=== PATIENT | male | born 1940 | race Caucasian/White ===

== ENCOUNTER 2016-08-04 14:07 | Observation (INO) ==
--- NOTE | 2016-08-04 14:13 | Emergency Department Note ---
Disposition Clinical Impression: Acute exacerbation of chronic obstructive pulmonary disease (COPD), Peripheral neuropathy Disposition: Admitted As Inpatient Referrals: Sheela Klein MD [Primary Care Provider] - SOB HPI - General Stated Complaint: SHAHBAZ, COPD Time Seen by Provider: 08/04/16 14:12 Source: patient Mode of arrival: ambulatory Limitations: no limitations Nursing Notes Reviewed: Yes Vital Signs Reviewed: Yes - History of Present Illness Pt Subjective Complaint: shortness of breath Onset (ago): day(s) (3) Severity: moderate Consistency/Duration: constant, gradually worsening Improves with: oxygen, rest, bronchodilators Worsens with: exertion Known history of: COPD Associated symptoms: Reports: wheezing, sputum production Treatment prior to arrival: oxygen, bronchodilator Cough present: Yes Cough Description: Involuntary Sputum production: Yes Sputum Amount: Scant Sputum Color: Clear - Related Data Home Medications Medication Instructions Recorded Confirmed Albuterol Sulfate [Proair Hfa] 2 puff IH Q4H PRN 09/08/15 08/04/16 Budesonide/Formoterol 160/4.5 2 puff IH BID 09/08/15 08/04/16 [Symbicort 160/4.5] Finasteride [Proscar] 5 mg PO HS 09/08/15 08/04/16 Fluticasone Propionate Nasal 50 mcg NS DAILY 09/08/15 08/04/16 [Flonase] Amlodipine Besylate 10 mg PO DAILY 11/13/15 08/04/16 Guaifenesin [Mucinex] 600 mg PO BID 11/13/15 08/04/16 Montelukast [Singulair] 10 mg PO HS 11/13/15 08/04/16 Ranitidine HCl [Zantac] 150 mg PO BID 11/13/15 08/04/16 Benzonatate [Tessalon] 100 mg PO TID PRN 02/09/16 08/04/16 Furosemide [Lasix] 40 mg PO BID 02/09/16 08/04/16 Loratadine [Claritin] 10 mg PO DAILY 02/09/16 08/04/16 Nystatin [Nystatin Suspension] 15 ml PO BID 02/09/16 08/04/16 Potassium Chloride [K-Tab ER] 20 meq PO DAILY 02/09/16 08/04/16 Albuterol Neb [Proventil Neb] 2.5 mg IH QID 04/15/16 08/04/16 Metformin [Glucophage] 500 mg PO BID 04/15/16 08/04/16 [place]-3/Dha/Epa/Fish Oil [Fish Oil 1,000 mg PO DAILY 04/15/16 08/04/16 1,000 mg Softgel] Oxygen 3.5 l NS AD 04/15/16 08/04/16 Insulin DETEMIR [Levemir] 10 unit SQ HS 08/04/16 08/04/16 PredniSONE 5 mg PO DAILY 08/04/16 08/04/16 Previous Rx's Medication Instructions Recorded Azithromycin 250 mg PO Q48H #30 tablet 06/30/16 Ipratropium/Albuterol Neb [Duoneb] 3 ml IH [id number] PRN #90 inhsol 06/30/16 Polyethylene Glycol 3350 [MiraLAX] 17 gm PO DAILY PRN #10 powd.pack 06/30/16 Sennosides/Docusate Sodium [Senna 2 each PO BID PRN #30 tablet 06/30/16 Plus] Allergies Allergy/AdvReac Type Severity Reaction Status Date / Time tobramycin Allergy Severe Difficulty Verified 07/28/16 14:11 Breathing All systems ED: reviewed and negative except as stated. Constitutional: Reports: weakness. Denies: fever Respiratory: Reports: cough, wheezes Gastrointestinal: Denies: nausea, vomiting Past Medical History - Past Medical History Source: patient, old records reviewed, obtained from family (), nursing notes reviewed Medical history: Reports: arthritis, asthma, cancer, COPD, GERD, hypertension, other Surgical history: Reports: appendectomy, cholecystectomy, herniorrhaphy, other Psychiatric history: Reports: no psych history - Social History Smoking Status: Former smoker Smokeless Tobacco Status: No Alcohol use: Reports: none Drug use: Reports: none Physical Exam - General Limitations: no limitations General appearance: alert, in no apparent distress - Head Head exam: atraumatic, normocephalic, normal inspection - Eye Eye exam: Present: normal appearance, PERRL, EOMI - Expanded Eye Exam Pupils: Left: reactive - ENT ENT exam: normal exam, normal oropharynx, mucous membranes moist - Expanded ENT Exam External ear exam: Present: normal external inspection Mouth exam: Present: normal external inspection Teeth exam: Present: normal inspection Throat exam: Present: normal inspection - Neck Neck exam: Present: normal inspection, full ROM, trachea midline - Chest Chest inspection: Present: normal inspection, symmetric chest wall rise - Respiratory Respiratory exam: Present: accessory muscle use, prolonged expiratory phase, other (She has bilateral rhonchi and coarse with scattered wheezing) - Cardiovascular Cardiovascular exam: Present: tachycardia (I will) - Abdominal Exam Abdominal exam: Present: soft, Non-Tender. Absent: tenderness, distention, guarding, rebound, rigidity - Extremities Exam Extremities exam: Present: normal inspection, full ROM. Absent: tenderness, pedal edema - Expanded Upper Extremity Exam Shoulder exam: Present: normal inspection, full ROM Arm exam: Present: normal inspection, full ROM Elbow exam: Present: normal inspection, full ROM Forearm/Wrist exam: Present: normal inspection, full ROM Hand exam: Present: normal inspection, full ROM Vascular exam: Normal: capillary refill, radial pulse - Expanded Lower Extremity Exam Hip/Pelvis exam: Present: normal inspection, full ROM Upper leg exam: Present: normal inspection, full ROM Knee exam: Present: normal inspection, full ROM Lower leg exam: Present: normal inspection, full ROM Ankle exam: Present: normal inspection, full ROM Foot/toe exam: Present: normal inspection, full ROM Neurovascular/Tendon exam: Absent: motor deficit, sensory deficit, tendon deficit - Back Exam Back exam: Present: normal inspection, full ROM. Absent: tenderness - Neurological Exam Neurological exam: Present: alert, oriented X3 - Expanded Neurological Exam Patient oriented to: Present: person, place, time Coma Scale Eye Opening: Spontaneous Coma Scale Motor Response: Obeys Commands Coma Scale Verbal Response: Oriented Coma Scale Total: 15 - Psychiatric Psychiatric exam: Present: normal affect, normal mood - Skin Skin exam: Present: warm, dry, intact, normal color Course Vital Signs Temperature 97.8 F 08/04/16 14:11 Pulse Rate 86 08/04/16 14:11 Respiratory Rate 08/04/16 14:11 Blood Pressure 143/82 08/04/16 14:11 O2 Sat by Pulse Oximetry 95 08/04/16 14:11 Temperature 97.8 F 08/04/16 14:11 Pulse Rate 83 08/04/16 15:18 Respiratory Rate 20 08/04/16 15:18 Blood Pressure 143/82 08/04/16 14:11 O2 Sat by Pulse Oximetry 95 02/20/17 15:18 Oxygen Delivery Oxygen Delivery Nasal Cannula Shortness of Breath/Dyspnea - MDM Narrative Medical decision making narrative: Spoke with Mary Anne the hospitalist MICROSTRATEGY DEVELOPER all of them decide which antibiotic therapy they wanted to initiate since he is on azithromycin every other day - Differential Diagnosis Likely: acute exacerbation of chronic obstructive airways disease, congestive heart failure, pneumonia, asthma with exacerbation, pulmonary embolism, pneumothorax, arrhythmia - Medical Records Medical records reviewed: Yes I reviewed the patient's medical records. - Lab Data Lab results reviewed: Yes I reviewed the patient's lab results. Result diagrams: 08/04/16 14:49 08/04/16 14:49 Lab Results 08/04/16 08/04/16 08/04/16 Range/Units 14:49 14:49 14:49 WBC 5.9 (4.3-11.1) K/mcL RBC 4.28 (4.19-5.50) M/mcL Hgb 13.2 (12.9-16.9) g/dL Hct 39.3 (37.5-50.1) % MCV 91.8 (83.0-100.0) fL MCH 30.8 (28.0-33.3) pg MCHC 33.6 (31.6-35.5) g/dL RDW 14.4 (11.5-14.5) % Plt Count 134 L (140-400) K/mcL MPV 10.3 (9.4-12.4) fL Immature Gran % 0.8 (0-4) % Seg Neutrophils % 86.0 % Lymphocytes % 6.7 % Monocytes % 5.7 % Eosinophils % 0.3 % Basophils % 0.5 % Neutrophils # 5.1 (1.6-8.9) K/mcL Lymphocytes # 0.4 L (0.6-4.6) K/mcL Monocytes # 0.3 (0.0-1.3) K/mcL Eosinophils # 0.0 (0.0-0.6) K/mcL Basophils # 0.0 (0.0-0.2) K/mcL PT 11.7 (9.4-12.1) Seconds INR 1.1 APTT 28.1 (26.0-36.0) Seconds Sodium 136 (136-145) mEq/L Potassium 4.3 (3.5-4.5) mEq/L Chloride 103 (98-109) mEq/L Carbon Dioxide 22 (19-29) mEq/L BUN 14 (8-26) mg/dL Creatinine 0.91 (0.72-1.25) mg/dL Est GFR ( Amer) > 60 (> 60) Est GFR (Non-Af Amer) > 60 (> 60) BUN/Creatinine Ratio 15 (6-26) Glucose 198 H (70-99) mg/dL Calculated Osmolality 288 (280-300) Calcium 8.9 (8.6-10.8) mg/dL Troponin I (0-0.03) ng/mL B-Natriuretic Peptide (0-100) pg/mL 08/04/16 08/04/16 Range/Units 14:49 14:49 WBC (4.3-11.1) K/mcL RBC (4.19-5.50) M/mcL Hgb (12.9-16.9) g/dL Hct (37.5-50.1) % MCV (83.0-100.0) fL MCH (28.0-33.3) pg MCHC (31.6-35.5) g/dL RDW (11.5-14.5) % Plt Count (140-400) K/mcL MPV (9.4-12.4) fL Immature Gran % (0-4) % Seg Neutrophils % % Lymphocytes % % Monocytes % % Eosinophils % % Basophils % % Neutrophils # (1.6-8.9) K/mcL Lymphocytes # (0.6-4.6) K/mcL Monocytes # (0.0-1.3) K/mcL Eosinophils # (0.0-0.6) K/mcL Basophils # (0.0-0.2) K/mcL PT (9.4-12.1) Seconds INR APTT (26.0-36.0) Seconds Sodium (136-145) mEq/L Potassium (3.5-4.5) mEq/L Chloride (98-109) mEq/L Carbon Dioxide (19-29) mEq/L BUN (8-26) mg/dL Creatinine (0.72-1.25) mg/dL Est GFR ( Amer) (> 60) Est GFR (Non-Af Amer) (> 60) BUN/Creatinine Ratio (6-26) Glucose (70-99) mg/dL Calculated Osmolality (280-300) Calcium (8.6-10.8) mg/dL Troponin I 0.01 (0-0.03) ng/mL B-Natriuretic Peptide 34 (0-100) pg/mL - Radiology Data Radiology results reviewed: Yes I reviewed the patient's radiology results.
[2016-08-04] MEDS ORDERED: methylPREDNISolone 125 MG/2 ML VIAL IVP ONE (14:41)
[2016-08-04] MEDS ORDERED: Ipratropium/Albuterol Neb 3 ML IH ONE (14:44)
[2016-08-04 14:55] LABS: Basophils % 0.5 %; Eosinophils % 0.3 %; Hematocrit 39.3 % (37.5-50.1); Hemoglobin 13.2 g/dL (12.9-16.9); Immature Granulocytes % 0.8 % (0-4); Lymphocytes # 0.4 K/mcL (0.6-4.6); Lymphocytes % 6.7 %; Mean Corpuscular HGB Conc 33.6 g/dL (31.6-35.5); Mean Corpuscular Hemoglobin 30.8 pg (28.0-33.3); Mean Corpuscular Volume 91.8 fL (83.0-100.0); Mean Platelet Volume 10.3 fL (9.4-12.4); Monocytes # 0.3 K/mcL (0.0-1.3); Monocytes % 5.7 %; Neutrophils # 5.1 K/mcL (1.6-8.9); Platelet Count 134 K/mcL (140-400); Red Blood Count 4.28 M/mcL (4.19-5.50); Red Cell Distribution Width 14.4 % (11.5-14.5)
[2016-08-04 15:00] LABS: INR 1.1; Prothrombin Time 11.7 Seconds (9.4-12.1)
[2016-08-04 15:03] LABS: Activated Partial Thrombo Time 28.1 Seconds (26.0-36.0)
[2016-08-04 15:08] LABS: BUN/Creatinine Ratio 15 (6-26); Blood Urea Nitrogen 14 mg/dL (8-26); Calcium 8.9 mg/dL (8.6-10.8); Carbon Dioxide 22 mEq/L (19-29); Chloride 103 mEq/L (98-109); Glucose 198 mg/dL (70-99); Osmolality,Calculated 288 (280-300); Potassium 4.3 mEq/L (3.5-4.5); Sodium 136 mEq/L (136-145); eGFR For African Americans > 60 (> 60); eGFR For Non-African Americans > 60 (> 60)
[2016-08-04] MEDS ORDERED: Naloxone 0.4 MG/ML INJ IVP PRN (19:51)
[2016-08-04] MEDS ORDERED: Acetaminophen 325 MG TABLET PO PRN (19:51)
[2016-08-04] MEDS ORDERED: Mag Hydrox/Al Hydrox/Simeth 30 ML UDC PO PRN (19:51)
[2016-08-04] MEDS ORDERED: *HR* HYDROcodone/Acet 5/325 mg TABLET PO PRN (19:51)
[2016-08-04] MEDS ORDERED: MOM Conc 10 ML UD.LIQ PO PRN (19:51)
[2016-08-04] MEDS ORDERED: Ondansetron 4 MG/2 ML VIAL IVP PRN (19:51)
[2016-08-04] MEDS ORDERED: Albuterol 2.5 MG/3 ML NEBULIZER IH PRN (19:58)
[2016-08-04] MEDS ORDERED: *HR* Dextrose 50 % in Water (Syg) 50 ML SYRINGE IVP PRN (19:59)
[2016-08-04] MEDS ORDERED: Dextrose Gel 15 GM PO PRN ×2 (19:59)
[2016-08-04] MEDS ORDERED: D5% in Water 1,000 ML IV PRN (19:59)
--- NOTE | 2016-08-04 20:29 | Internal Med History&Physical ---
Date of Encounter: 08/04/16 Time of Encounter: 20:17 Assessment and Plan (1) Acute exacerbation of chronic obstructive pulmonary disease (COPD) Current visit: Yes Status: Acute Increased cough and sputum production x 4 days. Pt reports fatigue, rhinorrhea, body aches and increased SOB. Chest xray negative for pneumonia. Wheezing heard in ant lung triana and MEGHA, ronchi throughout. Pt coughs with deep inspiration. Afebrile. Telemetry Continuous pulse ox Prednisone 40mg po daily Duonebs Albuterol neb q2h prn Budesonide nebs Tessalon pearls prn (2) Diabetes Current visit: No Status: Acute Serum glucose 198, accucheck 419 during exam. family living educator Diabetic diet Levemir 5mg qhs Sliding scale insulin Accucheck achs Qualifiers: Diabetes mellitus type: type 2 Diabetes mellitus complication status: with hyperglycemia Diabetes mellitus manager long term care insulin use: without penitentiary use Qualified Code(s): E11.65 - Type 2 diabetes mellitus with hyperglycemia (3) Peripheral neuropathy Current visit: Yes Status: Acute describes painful and numb areas to pt's feet that are interfering with how long and how far pt can walk. Gabapentin 300mg bid Qualifiers: Peripheral neuropathy type: polyneuropathy, unspecified Qualified Code(s): G62.9 - Polyneuropathy, unspecified (4) CHF (congestive heart failure) Current visit: No Status: Acute Stable. BNP 32. Will continue home dose of Lasix. Qualifiers: Congestive heart failure type: diastolic Congestive heart failure chronicity: chronic Qualified Code(s): I50.32 - Chronic diastolic (congestive ) heart failure (5) Mild diastolic dysfunction Current visit: No Status: Acute Plan as above. Internal Medicine - H&P: HPI Chief complaint: cough, SOB Admitted From: Home Plans for Post Hospital Care: Home History of present illness: Mr. Madrid is a 76 year old male with history of COPD, DM, HTN, diastolic CHF, and peripheral neuropathy. Pt has had 4 days of productive cough with increased sputum production, dyspnea, fatigue, aches, rhinorrhea. Pt reports abd and nadya rib pain with cough. He denies fever or chest pain. He constantly wears 02 at 4L /nc and 6 L when he is up walking around. reports that pt has painful and numb areas on his feet and that it is affecting how much and how far he can walk. Will start pt on Gabapentin. Past Med Surg Social Fam HX - Past Medical History Medical history: arthritis, asthma, cancer, COPD, GERD, hypertension, other Psychiatric history: no psych history - Past Surgical History Surgical History: appendectomy, cholecystectomy, herniorrhaphy, other - Social History Smoking Status: Former smoker Smokeless Tobacco Status: No Alcohol use: none Drug use: none - Family History Father History Unknown: Yes Living Status: Hx Family Neurologic Disorders: Yes (stroke) Internal Medicine - H&P: Meds Albuterol Sulfate [Proair Hfa] 2 puff IH Q4H PRN 09/08/15 [History] Budesonide/Formoterol 160/4.5 [Symbicort 160/4.5] 2 puff IH BID 09/08/15 [ History] Finasteride [Proscar] 5 mg PO HS 09/08/15 [History] Fluticasone Propionate Nasal [Flonase] 50 mcg NS DAILY 09/08/15 [History] Amlodipine Besylate 10 mg PO DAILY 11/13/15 [History] Guaifenesin [Mucinex] 600 mg PO BID 11/13/15 [History] Montelukast [Singulair] 10 mg PO HS 11/13/15 [History] Ranitidine HCl [Zantac] 150 mg PO BID 11/13/15 [History] Benzonatate [Tessalon] 100 mg PO TID PRN 02/09/16 [History] Furosemide [Lasix] 40 mg PO BID 02/09/16 [History] Loratadine [Claritin] 10 mg PO DAILY 02/09/16 [History] Nystatin [Nystatin Suspension] 15 ml PO BID 02/09/16 [History] Potassium Chloride [K-Tab ER] 20 meq PO DAILY 02/09/16 [History] Albuterol Neb [Proventil Neb] 2.5 mg IH QID 04/15/16 [History] Metformin [Glucophage] 500 mg PO BID 04/15/16 [History] [place]-3/Dha/Epa/Fish Oil [Fish Oil 1,000 mg Softgel] 1,000 mg PO DAILY 04/15/16 [History] Oxygen 3.5 l NS AD 04/15/16 [History] Azithromycin 250 mg PO Q48H #30 tablet 06/30/16 [Rx] Ipratropium/Albuterol Neb [Duoneb] 3 ml IH [id number] PRN #90 inhsol 06/30/16 [Rx] Polyethylene Glycol 3350 [MiraLAX] 17 gm PO DAILY PRN #10 powd.pack 06/30/16 [Rx ] Sennosides/Docusate Sodium [Senna Plus] 2 each PO BID PRN #30 tablet 06/30/16 [ Rx] Insulin DETEMIR [Levemir] 10 unit SQ HS 08/04/16 [History] PredniSONE 5 mg PO DAILY 08/04/16 [History] Allergies tobramycin Allergy (Severe, Verified 07/28/16 14:11) Difficulty Breathing All Systems PM: A 10-system review of systems was performed and is negative for pertinent findings except as documented above in the HPI. - Constitutional Constitutional: chills, night sweats, weakness, no fatigue, no fever(s) - EENT Eyes: no discharge Ears: no ear discharge, no ear pain Nose, mouth and throat: post-nasal drip, no facial pain, no hoarseness, no sinus pressure, no sore throat - Cardiovascular Cardiovascular ROS IM: dyspnea, dyspnea on exertion, no chest pain - Respiratory Respiratory: cough, dyspnea on exertion, wheezing, chest congestion, pain with cough - Gastrointestinal Gastrointestinal: no diarrhea, no nausea, no vomiting - Genitourinary Genitourinary ROS male: no dysuria - Constitutional Vitals: Temp Pulse Resp BP Pulse Ox 97.7 F 96 20 126/69 94 L 08/04/16 19:51 08/04/16 19:51 08/04/16 19:51 08/04/16 19:51 08/04/16 19:51 Internal Med - H&P Results - Labs CBC & Chem 7: 08/04/16 14:49 08/04/16 14:49 - EKG Data EKG shows normal: sinus rhythm Rate: normal - EKG Data Prior EKG available for review: yes When compared to previous EKG: there is no significant change EKG comments: 08/04/16 21:00 NSR Vent rate 85 NE int 195 QRS 98 QTc 381
[2016-08-04] MEDS: Ipratropium/Albuterol Neb 3 ML IH SCH (21:20)
[2016-08-04] MEDS: Budesonide Neb 0.25 MG/2 ML IH SCH (21:21)
[2016-08-04] MEDS: Insulin LISPRO 300 UNITS/3 ML VIAL SQ SCH (21:43)
[2016-08-04] MEDS: Finasteride 5 MG TABLET PO SCH (21:44)
[2016-08-04] MEDS: Insulin DETEMIR 100 UNIT/ML X5UNITS SQ SCH (21:44)
[2016-08-04] MEDS: Furosemide 40 MG TABLET PO SCH (21:44)
[2016-08-04] MEDS: Famotidine 20 MG TABLET PO SCH (21:44)
[2016-08-04] MEDS: Gabapentin 300 MG CAPSULE PO SCH (21:45)
[2016-08-05] MEDS: Ipratropium/Albuterol Neb 3 ML IH SCH ×7 (01:10→22:54)
[2016-08-05 05:06] LABS: Basophils % 0.2 %; Hemoglobin 13.4 g/dL (12.9-16.9); Immature Granulocytes % 0.6 % (0-4); Lymphocytes # 0.3 K/mcL (0.6-4.6); Lymphocytes % 6.4 %; Mean Corpuscular HGB Conc 34.4 g/dL (31.6-35.5); Mean Corpuscular Hemoglobin 31.6 pg (28.0-33.3); Mean Platelet Volume 10.8 fL (9.4-12.4); Monocytes # 0.2 K/mcL (0.0-1.3); Monocytes % 4.3 %; Neutrophils # 4.5 K/mcL (1.6-8.9); Platelet Count 150 K/mcL (140-400); Red Blood Count 4.24 M/mcL (4.19-5.50); Red Cell Distribution Width 13.9 % (11.5-14.5); Segmented Neutrophils % 88.5 %
[2016-08-05 05:28] LABS: BUN/Creatinine Ratio 21 (6-26); Blood Urea Nitrogen 18 mg/dL (8-26); Calcium 8.4 mg/dL (8.6-10.8); Carbon Dioxide 23 mEq/L (19-29); Chloride 103 mEq/L (98-109); Glucose 267 mg/dL (70-99); Osmolality,Calculated 291 (280-300); Potassium 4.2 mEq/L (3.5-4.5); Sodium 135 mEq/L (136-145); eGFR For African Americans > 60 (> 60); eGFR For Non-African Americans > 60 (> 60)
[2016-08-05] MEDS: Budesonide Neb 0.25 MG/2 ML IH SCH ×2 (07:51→19:47)
[2016-08-05] MEDS: Insulin LISPRO 300 UNITS/3 ML VIAL SQ SCH ×4 (10:24→21:23)
[2016-08-05] MEDS: amLODIPine 5 MG TABLET PO SCH (10:25)
[2016-08-05] MEDS: Furosemide 40 MG TABLET PO SCH ×2 (10:26→21:14)
[2016-08-05] MEDS: Famotidine 20 MG TABLET PO SCH ×2 (10:27→21:14)
[2016-08-05] MEDS: Loratadine 10 MG TABLET PO SCH (10:27)
[2016-08-05] MEDS: Fluticasone Propionate Nasal 50 MCG/SPRAY BOTTLE NS SCH (10:28)
[2016-08-05] MEDS: Gabapentin 300 MG CAPSULE PO SCH ×2 (10:30→21:12)
[2016-08-05] MEDS: Benzonatate 100 MG CAPSULE PO PRN ×2 (10:33→21:17)
--- NOTE | 2016-08-05 14:01 | Internal Med Progress Note ---
Date of Encounter: 08/05/16 Time of Encounter: 13:45 - Assessment and plan (1) Acute exacerbation of chronic obstructive pulmonary disease (COPD) Current Visit: Yes Status: Acute Assessment and plan: Add prednsione 40mg po Add robitussin Patient stated he is on a "trial of zithromax 250mg po every other day for 60ndays" Will start on doxycycline due to COPDE with bronchitis while on azithromycin Continue duonebs Continue other home meds Continuous pulse oximetry Close monitoring (2) CHF (congestive heart failure) Current Visit: Yes Status: Chronic Assessment and plan: No evidence of congestion, continue home meds Qualifiers: Congestive heart failure type: diastolic Congestive heart failure chronicity: chronic Qualified Code(s): I50.32 - Chronic diastolic (congestive ) heart failure (3) Peripheral neuropathy Current Visit: Yes Status: Chronic Assessment and plan: Secondary to DM Continue Gabapentin Qualifiers: Peripheral neuropathy type: polyneuropathy, unspecified Qualified Code(s): G62.9 - Polyneuropathy, unspecified (4) Chronic respiratory failure Current Visit: Yes Status: Chronic Qualifiers: Respiratory failure complication: hypoxia Qualified Code(s): J96.11 - Chronic respiratory failure with hypoxia (5) Diabetes Current Visit: Yes Status: Chronic Assessment and plan: FS ACHS, insulin Qualifiers: Diabetes mellitus type: type 2 Diabetes mellitus complication status: with hyperglycemia Diabetes mellitus fpc insulin use: without fpc use Qualified Code(s): E11.65 - Type 2 diabetes mellitus with hyperglycemia (6) Hypertension Current Visit: Yes Status: Chronic Assessment and plan: Controlled, continue home meds Qualifiers: Hypertension type: essential hypertension Qualified Code(s): I10 - Essential (primary) hypertension (7) Obesity Current Visit: Yes Status: Chronic Qualifiers: Obesity type: unspecified obesity type Obesity severity: unspecified obesity severity Qualified Code(s): E66.9 - Obesity, unspecified - Subjective Interval history: Initial encounter EMR reviewed Seen at bedside, denies new complains wants something for cough Requesting to see Dr. Carter as he has an appointment with him today reassured and patient will consult pulmonary if necessary 76 year old male with PMH of COPD with multiple admissions for exacerbation, DM , HTN, diastolic CHF, and peripheral neuropathy. He is being managed for COPDE, no PNA on Xray He is afebrile, no leukocytosis - Constitutional Vitals: Temp Pulse Resp BP Pulse Ox 98.1 F 77 16 145/76 93 L 08/05/16 11:17 08/05/16 11:17 08/05/16 11:17 08/05/16 11:17 08/05/16 11:17 General appearance: Present: mild distress, A&O X 3, pleasant - Head Head exam: Present: atraumatic - Eye Eye exam: Present: PERRL, conjuntiva pink, sclera anicteric - ENT ENT exam: Present: mucous membranes moist - Neck Neck exam general surgery: Present: normal inspection - Respiratory Respiratory exam: Present: rhonchi, wheezes. Absent: rales - Cardiovascular Cardiovascular exam: Present: RRR, +S1, +S2 - GI/Abdominal GI/Abdominal exam: Present: normal bowel sounds, soft, no peritoneal signs. Absent: distended, tenderness - Extremities Exam Extremities exam: Present: warm, radial pulses palpable and symetrical. Absent : calf tenderness, cyanotic, pedal edema - Neurological Exam Neurological exam: Present: CN II-XII intact, oriented X3, no focal deficits. Absent: pronater drift, facial droop, speech deficit - Skin Skin exam: Present: dry, intact Internal Medicine: Result - Labs CBC & Chem 7: 08/05/16 04:20 08/05/16 04:20 Labs: Short CBC 08/05/16 Range/Units 04:20 WBC 5.1 (4.3-11.1) K/mcL Hgb 13.4 (12.9-16.9) g/dL Hct 39.0 (37.5-50.1) % Plt Count 150 (140-400) K/mcL Neutrophils # 4.5 (1.6-8.9) K/mcL BMP 08/05/16 04:20 Sodium 135 L Potassium 4.2 Chloride 103 Carbon Dioxide 23 BUN 18 Creatinine 0.87 Glucose 267 H Calcium 8.4 L - ABG Interpretation ABG results: PT/INR, D-dimer PT 11.7 Seconds (9.4-12.1) 08/04/16 14:49 Consult Discharge Plan - Plan Referrals: Sheela Klein MD [Primary Care Provider] - 08/07/16 1:10 pm
--- NOTE | 2016-08-05 17:55 | Electrocardiograph Report ---
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
[2016-08-05] MEDS: predniSONE 20 MG TABLET PO SCH (18:46)
[2016-08-05] MEDS: Doxycycline 100 MG CAPSULE PO SCH (21:14)
[2016-08-05] MEDS: Finasteride 5 MG TABLET PO SCH (21:16)
[2016-08-05] MEDS: Insulin DETEMIR 100 UNIT/ML X5UNITS SQ SCH (21:23)
[2016-08-06] MEDS: Ipratropium/Albuterol Neb 3 ML IH SCH ×6 (03:59→23:14)
[2016-08-06] MEDS: Budesonide Neb 0.25 MG/2 ML IH SCH ×2 (08:02→20:34)
[2016-08-06] MEDS: Furosemide 40 MG TABLET PO SCH ×2 (08:43→21:59)
[2016-08-06] MEDS: Famotidine 20 MG TABLET PO SCH ×2 (08:43→21:58)
[2016-08-06] MEDS: Loratadine 10 MG TABLET PO SCH (08:44)
[2016-08-06] MEDS: Doxycycline 100 MG CAPSULE PO SCH ×2 (08:45→21:58)
[2016-08-06] MEDS: Gabapentin 300 MG CAPSULE PO SCH ×2 (08:46→21:58)
[2016-08-06] MEDS: predniSONE 20 MG TABLET PO SCH (08:51)
[2016-08-06] MEDS: amLODIPine 5 MG TABLET PO SCH (08:52)
[2016-08-06] MEDS: Insulin LISPRO 300 UNITS/3 ML VIAL SQ SCH ×4 (08:53→21:59)
[2016-08-06] MEDS: Fluticasone Propionate Nasal 50 MCG/SPRAY BOTTLE NS SCH (08:53)
--- NOTE | 2016-08-06 16:26 | Internal Med Progress Note ---
Date of Encounter: 08/06/16 Time of Encounter: 12:10 - Assessment and plan (1) Acute exacerbation of chronic obstructive pulmonary disease (COPD) Current Visit: Yes Status: Acute Assessment and plan: Continue prednsione 40mg po Continue robitussin Patient stated he is on a "trial of zithromax 250mg po every other day for 60ndays" Continue doxycycline Continue duonebs Continue other home meds Continuous pulse oximetry Close monitoring (2) CHF (congestive heart failure) Current Visit: Yes Status: Chronic Assessment and plan: No evidence of congestion, continue home meds Qualifiers: Congestive heart failure type: diastolic Congestive heart failure chronicity: chronic Qualified Code(s): I50.32 - Chronic diastolic (congestive ) heart failure (3) Peripheral neuropathy Current Visit: Yes Status: Chronic Assessment and plan: Secondary to DM Continue Gabapentin Qualifiers: Peripheral neuropathy type: polyneuropathy, unspecified Qualified Code(s): G62.9 - Polyneuropathy, unspecified (4) Chronic respiratory failure Current Visit: Yes Status: Chronic Qualifiers: Respiratory failure complication: hypoxia Qualified Code(s): J96.11 - Chronic respiratory failure with hypoxia (5) Diabetes Current Visit: Yes Status: Chronic Assessment and plan: FS ACHS, insulin Qualifiers: Diabetes mellitus type: type 2 Diabetes mellitus complication status: with hyperglycemia Diabetes mellitus lobsterman insulin use: without lobsterman use Qualified Code(s): E11.65 - Type 2 diabetes mellitus with hyperglycemia (6) Hypertension Current Visit: Yes Status: Chronic Assessment and plan: Controlled, continue home meds Qualifiers: Hypertension type: essential hypertension Qualified Code(s): I10 - Essential (primary) hypertension (7) Obesity Current Visit: Yes Status: Chronic Qualifiers: Obesity type: unspecified obesity type Obesity severity: unspecified obesity severity Qualified Code(s): E66.9 - Obesity, unspecified - Subjective Interval history: 08/05 Initial encounter EMR reviewed Seen at bedside, denies new complains wants something for cough Requesting to see Dr. Carter as he has an appointment with him today reassured and patient will consult pulmonary if necessary 76 year old male with PMH of COPD with multiple admissions for exacerbation, DM , HTN, diastolic CHF, and peripheral neuropathy. He is being managed for COPDE, no PNA on Xray He is afebrile, no leukocytosis 2/22 Seen at bedside, reports some improvement, has no new complains - Constitutional Vitals: Temp Pulse Resp BP Pulse Ox 97.7 F 75 18 132/71 95 08/06/16 15:07 08/06/16 15:07 08/06/16 15:50 08/06/16 15:07 08/06/16 15:50 General appearance: Present: A&O X 3, pleasant, no acute distress - Head Head exam: Present: atraumatic, normocephalic - Eye Eye exam: Present: PERRL, conjuntiva pink, sclera anicteric Pupils: Present: PERRL - Neck Neck exam general surgery: Present: supple, trachea midline. Absent: lymphadenopathy - Respiratory Respiratory exam: Present: wheezes. Absent: chest wall tenderness, decreased breath sounds, rales - Cardiovascular Cardiovascular exam: Present: RRR, +S1, +S2. Absent: diastolic murmur, gallop, rubs, systolic murmur - GI/Abdominal GI/Abdominal exam: Present: normal bowel sounds, soft, no peritoneal signs. Absent: distended, tenderness - Extremities Exam Extremities exam: Present: warm, radial pulses palpable and symetrical. Absent : calf tenderness, cyanotic, pedal edema - Neurological Exam Neurological exam: Present: CN II-XII intact, oriented X3, no focal deficits. Absent: pronater drift, facial droop, speech deficit - Skin Skin exam: Present: dry, intact Internal Medicine: Result - Labs CBC & Chem 7: 08/05/16 04:20 08/05/16 04:20 - ABG Interpretation ABG results: PT/INR, D-dimer PT 11.7 Seconds (9.4-12.1) 08/04/16 14:49 - VTE Documentation of Mechanical Device: Graduated compression elastic hosiery Consult Discharge Plan - Plan Referrals: Sheela Klein MD [Primary Care Provider] - 08/07/16 1:10 pm
[2016-08-06] MEDS: Insulin DETEMIR 100 UNIT/ML X5UNITS SQ SCH (21:56)
[2016-08-06] MEDS: Finasteride 5 MG TABLET PO SCH (21:58)
[2016-08-07] MEDS: Ipratropium/Albuterol Neb 3 ML IH SCH ×3 (05:34→11:24)
[2016-08-07] MEDS: Budesonide Neb 0.25 MG/2 ML IH SCH (07:44)
[2016-08-07] MEDS: Insulin LISPRO 300 UNITS/3 ML VIAL SQ SCH (08:14)
[2016-08-07] MEDS: Doxycycline 100 MG CAPSULE PO SCH (09:38)
[2016-08-07] MEDS: Famotidine 20 MG TABLET PO SCH (09:38)
[2016-08-07] MEDS: Furosemide 40 MG TABLET PO SCH (09:38)
[2016-08-07] MEDS: Fluticasone Propionate Nasal 50 MCG/SPRAY BOTTLE NS SCH (09:39)
[2016-08-07] MEDS: predniSONE 20 MG TABLET PO SCH (09:39)
[2016-08-07] MEDS: Gabapentin 300 MG CAPSULE PO SCH (09:39)
[2016-08-07] MEDS: Loratadine 10 MG TABLET PO SCH (09:39)
[2016-08-07] MEDS: amLODIPine 5 MG TABLET PO SCH (09:42)
[2016-08-07 11:54] VITALS: BP 138/77
--- NOTE | 2016-08-07 12:19 | Discharge Summary ---
Date of Encounter: 08/07/16 Time of Encounter: 12:10 - Discharge Diagnosis (1) Acute exacerbation of chronic obstructive pulmonary disease (COPD) Priority: Primary Status: Acute (2) CHF (congestive heart failure) Priority: Secondary Status: Chronic Qualifiers: Congestive heart failure type: diastolic Congestive heart failure chronicity: chronic Qualified Code(s): I50.32 - Chronic diastolic (congestive ) heart failure (3) Peripheral neuropathy Priority: Secondary Status: Chronic Qualifiers: Peripheral neuropathy type: polyneuropathy, unspecified Qualified Code(s): G62.9 - Polyneuropathy, unspecified (4) Chronic respiratory failure Priority: Secondary Status: Chronic Qualifiers: Respiratory failure complication: hypoxia Qualified Code(s): J96.11 - Chronic respiratory failure with hypoxia (5) Diabetes Priority: Secondary Status: Chronic Qualifiers: Diabetes mellitus type: type 2 Diabetes mellitus complication status: with hyperglycemia Diabetes mellitus halfway insulin use: without manager long term care use Qualified Code(s): E11.65 - Type 2 diabetes mellitus with hyperglycemia (6) Hypertension Priority: Secondary Status: Chronic Qualifiers: Hypertension type: essential hypertension Qualified Code(s): I10 - Essential (primary) hypertension (7) Obesity Priority: Secondary Status: Ruled-out Qualifiers: Obesity type: unspecified obesity type Obesity severity: unspecified obesity severity Qualified Code(s): E66.9 - Obesity, unspecified - Discharge Medications Prescriptions: Doxycycline 100 mg PO BID #8 capsule Gabapentin [Neurontin] 300 mg PO BID #60 capsule PredniSONE 40 mg PO DAILY #6 tablet Home Medications: Albuterol Sulfate [Proair Hfa] 2 puff IH Q4H PRN 09/08/15 [History] Budesonide/Formoterol 160/4.5 [Symbicort 160/4.5] 2 puff IH BID 09/08/15 [ History] Finasteride [Proscar] 5 mg PO HS 09/08/15 [History] Fluticasone Propionate Nasal [Flonase] 50 mcg NS DAILY 09/08/15 [History] Amlodipine Besylate 10 mg PO DAILY 11/13/15 [History] Guaifenesin [Mucinex] 600 mg PO BID 11/13/15 [History] Montelukast [Singulair] 10 mg PO HS 11/13/15 [History] Ranitidine HCl [Zantac] 150 mg PO BID 11/13/15 [History] Benzonatate [Tessalon] 100 mg PO TID PRN 02/09/16 [History] Furosemide [Lasix] 40 mg PO BID 02/09/16 [History] Loratadine [Claritin] 10 mg PO DAILY 02/09/16 [History] Nystatin [Nystatin Suspension] 15 ml PO BID 02/09/16 [History] Potassium Chloride [K-Tab ER] 20 meq PO DAILY 02/09/16 [History] Albuterol Neb [Proventil Neb] 2.5 mg IH QID 04/15/16 [History] Metformin [Glucophage] 500 mg PO BID 04/15/16 [History] [place]-3/Dha/Epa/Fish Oil [Fish Oil 1,000 mg Softgel] 1,000 mg PO DAILY 04/15/16 [History] Oxygen 3.5 l NS AD 04/15/16 [History] Ipratropium/Albuterol Neb [Duoneb] 3 ml IH [id number] PRN #90 inhsol 06/30/16 [Rx] Polyethylene Glycol 3350 [MiraLAX] 17 gm PO DAILY PRN #10 powd.pack 06/30/16 [Rx ] Sennosides/Docusate Sodium [Senna Plus] 2 each PO BID PRN #30 tablet 06/30/16 [ Rx] Insulin DETEMIR [Levemir] 10 unit SQ HS 08/04/16 [History] PredniSONE 5 mg PO DAILY 08/04/16 [History] Doxycycline 100 mg PO BID #8 capsule 08/07/16 [Rx] Gabapentin [Neurontin] 300 mg PO BID #60 capsule 08/07/16 [Rx] PredniSONE 40 mg PO DAILY #6 tablet 08/07/16 [Rx] Allergies/Adverse Reactions: Allergies tobramycin Allergy (Severe, Verified 07/28/16 14:11) Difficulty Breathing Date of admission: 08/04/16 17:40 Primary care physician: Sheela Klein MD Consults: 08/04/16 21:07 Consult to [employer]ch[employer]ocker [CONS] Routine Comment: Discharging clinician: Fermin García Anticipated date of discharge: 08/07/16 - Patient Status Disposition: Home, Self-Care Condition: Fair Functional capacity at discharge: independent ambulation Overall status at discharge: patient is progressing back to baseline - Discharge Instructions Instructions: Doxycycline (By mouth), Prednisone (By mouth), Gabapentin (By mouth), Chronic Obstructive Pulmonary Disease (GEN) Forms: ED Satisfaction Letter - Diet and Activity Activity: resume usual activities as tolerated, wear oxygen at all times Diet: diabetic diet, low fat, low cholesterol, low salt diet Interval History: See below Hospital course: 76 year old male with PMH of COPD with multiple admissions for exacerbation, Chronic respiratory failure on home O2, DM, HTN, diastolic CHF, and peripheral neuropathy. He is being managed for COPDE, no PNA on Xray He has been afebrile, no leukocytosis He was started on duonebs, doxycycline (due to use of azithromycin at home q2days for an ongoing trial at Pul clinic per patient) He has made significant improvement and is stable for d/c home today with po doxycycline, prednisone Encouraged to follow up with Pulmonary clinic regarding restarting po azithromycin after course of doxycycline Immunization is UTD - Time Spent with Patient Total time spent providing and/or coordinating discharge services: Less than 30 minutes - Constitutional Vitals: Temp Pulse Resp BP Pulse Ox 97.6 F 101 16 138/77 94 L 08/07/16 11:53 08/07/16 11:53 08/07/16 11:53 08/07/16 11:53 08/07/16 11:53 General appearance: Present: A&O X 3, pleasant, no acute distress - Head Head exam: Present: atraumatic, normocephalic - Eye Eye exam: Present: PERRL, conjuntiva pink, sclera anicteric Pupils: Present: PERRL - Neck Neck exam general surgery: Present: supple, trachea midline. Absent: lymphadenopathy - Respiratory Respiratory exam: Present: CTAB (Few scattered squeaks, no wheezing). Absent: accessory muscle use, rales, rhonchi, wheezes - Cardiovascular Cardiovascular exam: Present: RRR, +S1, +S2. Absent: diastolic murmur, gallop, rubs, systolic murmur - GI/Abdominal GI/Abdominal exam: Present: normal bowel sounds, soft, no peritoneal signs. Absent: distended, tenderness - Extremities Exam Extremities exam: Present: warm, radial pulses palpable and symetrical. Absent : calf tenderness, cyanotic, pedal edema - Neurological Exam Neurological exam: Present: CN II-XII intact, oriented X3, no focal deficits. Absent: pronater drift, facial droop, speech deficit - Skin Skin exam: Present: dry, intact - VTE Documentation of Mechanical Device: Graduated compression elastic hosiery
--- NOTE | 2016-08-07 15:47 | Physician Discharge Referral ---
Home Health/Hosp Referral Info Transfer to: Home Health Attending Provider: Ricky Provider in Charge Post Discharge: PCP - Diagnosis (1) Acute exacerbation of chronic obstructive pulmonary disease (COPD) Priority: Primary Status: Acute (2) CHF (congestive heart failure) Priority: Secondary Status: Chronic (3) Peripheral neuropathy Priority: Secondary Status: Chronic (4) Chronic respiratory failure Priority: Secondary Status: Chronic (5) Diabetes Priority: Secondary Status: Chronic (6) Hypertension Priority: Secondary Status: Chronic (7) Obesity Priority: Secondary Status: Ruled-out - Respiratory Orders Oxygen / L per min (4-6 L /minute) Smoking Cessation: Smoking cessation has been advised. For more information, call the [place] Tobacco Quit Line at 2-952-RHFN-NOW. - Diet/Nutrition Diet/Nutrition Orders: Cardiac, No Concentrated Sweets - Activity Activity Orders: Up ad miguelina, Ambulate, Walker - Services Needed Following services are medically necessary services: Home Health Aide - Transfer Medications Prescriptions: Doxycycline 100 mg PO BID #8 capsule Gabapentin [Neurontin] 300 mg PO BID #60 capsule PredniSONE 40 mg PO DAILY #6 tablet Home Medications: Albuterol Sulfate [Proair Hfa] 2 puff IH Q4H PRN 09/08/15 [History] Budesonide/Formoterol 160/4.5 [Symbicort 160/4.5] 2 puff IH BID 09/08/15 [ History] Finasteride [Proscar] 5 mg PO HS 09/08/15 [History] Fluticasone Propionate Nasal [Flonase] 50 mcg NS DAILY 09/08/15 [History] Amlodipine Besylate 10 mg PO DAILY 11/13/15 [History] Guaifenesin [Mucinex] 600 mg PO BID 11/13/15 [History] Montelukast [Singulair] 10 mg PO HS 11/13/15 [History] Ranitidine HCl [Zantac] 150 mg PO BID 11/13/15 [History] Benzonatate [Tessalon] 100 mg PO TID PRN 02/09/16 [History] Furosemide [Lasix] 40 mg PO BID 02/09/16 [History] Loratadine [Claritin] 10 mg PO DAILY 02/09/16 [History] Nystatin [Nystatin Suspension] 15 ml PO BID 02/09/16 [History] Potassium Chloride [K-Tab ER] 20 meq PO DAILY 02/09/16 [History] Albuterol Neb [Proventil Neb] 2.5 mg IH QID 04/15/16 [History] Metformin [Glucophage] 500 mg PO BID 04/15/16 [History] [place]-3/Dha/Epa/Fish Oil [Fish Oil 1,000 mg Softgel] 1,000 mg PO DAILY 04/15/16 [History] Oxygen 3.5 l NS AD 04/15/16 [History] Ipratropium/Albuterol Neb [Duoneb] 3 ml IH [id number] PRN #90 inhsol 06/30/16 [Rx] Polyethylene Glycol 3350 [MiraLAX] 17 gm PO DAILY PRN #10 powd.pack 06/30/16 [Rx ] Sennosides/Docusate Sodium [Senna Plus] 2 each PO BID PRN #30 tablet 06/30/16 [ Rx] Insulin DETEMIR [Levemir] 10 unit SQ HS 08/04/16 [History] PredniSONE 5 mg PO DAILY 08/04/16 [History] Doxycycline 100 mg PO BID #8 capsule 08/07/16 [Rx] Gabapentin [Neurontin] 300 mg PO BID #60 capsule 08/07/16 [Rx] PredniSONE 40 mg PO DAILY #6 tablet 08/07/16 [Rx] Allergies/Adverse Reactions: Allergies tobramycin Allergy (Severe, Verified 07/28/16 14:11) Difficulty Breathing Certification: Further, I certify that my clinical findings support that this patient is homebound (i.e. absences from home require considerable and taxing effort and are for medical reasons or [employer] services or infrequently or short duration when for other reasons) because: Homebound Reason: Leaving home requires considerable and taxing effort due to condition, Severity of cardiac or pulmonary status limits activity tolerance Attestation: My signature below is to certify that this patient is under my care and that I, or nurse practitioner, or a physician's assistant corporate controller working with me, has a face-to -face encounter with this patient.
== END 2016-08-07 13:42 | disposition home health service (06) ==
LOC: EMEROO 14:07 → 3BNU 14:07 → SUATTDRO 17:40 → 3BNU 19:33
PROVIDERS: ADMIT Registered Nurse; ATTEND Internal Medicine

== ENCOUNTER 2016-11-17 12:06 | Inpatient (IN) ==
[2016-11-17] MEDS ORDERED: Ipratropium/Albuterol Neb 3 ML IH ONE (12:25)
[2016-11-17] MEDS ORDERED: predniSONE 20 MG TABLET PO ONE (12:31)
--- NOTE | 2016-11-17 12:34 | Emergency Department Note ---
Disposition Clinical Impression: COPD exacerbation Disposition: Admitted As Inpatient Condition: Fair Time of Disposition: 16:53 SOB HPI - General Chief Complaint: ED Shortness of Breath/Dyspnea Stated Complaint: COPD flare Time Seen by Provider: 11/17/16 12:14 Source: patient Mode of arrival: ambulatory Limitations: no limitations Nursing Notes Reviewed: Yes Vital Signs Reviewed: Yes - History of Present Illness 76-year-old male with history of COPD and CHF arrives to [facility] emergency department complaining of difficulty breathing. The patient states this started roughly 2 days ago. His progressively gotten worse. The patient took one extra dose of his daily by mouth prednisone in addition to his daily dual nebs and Proventil inhalers. The patient states that it has continued to progress to the point where this morning he woke up with an O2 saturation of 83%. The patient states that his O2 sat normally sits in the low 90s. The patient denies any chest pain or worsening swelling associated with this. The patient states just in case he did take an extra dose of Lasix this morning. The patient denies any other complaints at this time. The patient is sitting in the bed tripoding and tachypneic at this time. Pt Subjective Complaint: shortness of breath Severity: moderate Improves with: nothing Worsens with: nothing Known history of: COPD, congestive heart failure Associated symptoms: Reports: wheezing Treatment prior to arrival: oxygen, bronchodilator, diuretics Cough present: No Sputum production: No - Related Data Home oxygen amount: 4 liters Home Medications Medication Instructions Recorded Confirmed Albuterol Sulfate [Proair Hfa] 2 puff IH Q4H PRN 09/08/15 11/17/16 Budesonide/Formoterol 160/4.5 2 puff IH BID 09/08/15 11/17/16 [Symbicort 160/4.5] Finasteride [Proscar] 5 mg PO HS 09/08/15 11/17/16 Fluticasone Propionate Nasal 50 mcg NS DAILY 09/08/15 11/17/16 [Flonase] Amlodipine Besylate 10 mg PO DAILY 11/13/15 11/17/16 Guaifenesin [Mucinex] 600 mg PO BID 11/13/15 11/17/16 Montelukast [Singulair] 10 mg PO HS 11/13/15 11/17/16 Ranitidine HCl [Zantac] 150 mg PO BID 11/13/15 11/17/16 Benzonatate [Tessalon] 100 mg PO TID PRN 02/09/16 11/17/16 Furosemide [Lasix] 40 mg PO BID 02/09/16 11/17/16 Loratadine [Claritin] 10 mg PO DAILY 02/09/16 11/17/16 Nystatin [Nystatin Suspension] 15 ml PO BID 02/09/16 11/17/16 Potassium Chloride [K-Tab ER] 20 meq PO DAILY 02/09/16 11/17/16 Albuterol Neb [Proventil Neb] 2.5 mg IH QID 04/15/16 11/17/16 [place]-3/Dha/Epa/Fish Oil [Fish Oil 1,000 mg PO DAILY 04/15/16 11/17/16 1,000 mg Softgel] Oxygen 4 l NS CONT 04/15/16 11/17/16 metFORMIN [Glucophage] 500 mg PO BID 04/15/16 11/17/16 Gabapentin [Neurontin] 300 mg PO TID 11/17/16 11/17/16 Insulin DETEMIR [Levemir Flextouch] 5 unit SQ QAM 11/17/16 11/17/16 Insulin DETEMIR [Levemir Flextouch] 15 unit SQ QPM 11/17/16 11/17/16 Sennosides/Docusate Sodium [Senna 1 each PO DAILY 11/17/16 11/17/16 Plus] predniSONE [PredniSONE] 10 - 20 mg PO DAILY 11/17/16 11/17/16 Previous Rx's Medication Instructions Recorded Ipratropium/Albuterol Neb [Duoneb] 3 ml IH [id number] PRN #90 inhsol 06/30/16 Polyethylene Glycol 3350 [MiraLAX] 17 gm PO DAILY PRN #10 powd.pack 06/30/16 Allergies Allergy/AdvReac Type Severity Reaction Status Date / Time tobramycin Allergy Severe Difficulty Verified 07/28/16 14:11 Breathing All systems ED: reviewed and negative except as stated. Constitutional: Denies: fever, chills, weakness, weight change Eyes: Denies: eye pain, eye discharge, vision change Cardiovascular: Denies: chest pain, palpitations, dyspnea on exertion, edema, syncope Respiratory: Reports: dyspnea, wheezes. Denies: cough, hemoptysis, stridor, sputum production Gastrointestinal: Denies: abdominal pain, nausea, vomiting, diarrhea, constipation, hematemesis, melena, hematochezia Musculoskeletal: Denies: back pain, neck pain, arthralgia, myalgia Integumentary: Denies: rash, abrasion, lesions Neurological: Denies: headache, weakness, numbness, paresthesias, confusion, abnormal gait, vertigo Past Medical History - Past Medical History Attestation: Yes The following information was validated with the patient. Source: patient Medical history: Reports: arthritis, asthma, cancer, CHF, COPD, diabetes, GERD, hypertension, other Surgical history: Reports: appendectomy, cholecystectomy, herniorrhaphy, other Psychiatric history: Reports: no psych history - Social History Smoking Status: Former smoker Smokeless Tobacco Status: No Alcohol use: Reports: none Drug use: Reports: none Physical Exam Patient is sitting in bed sitting upright and tachypneic. He is audibly wheezing without a stethoscope. The patient has an O2 saturation of 83% in room on 4 L nasal cannula. - General Limitations: no limitations General appearance: alert, in distress (Mild to moderate respiratory) - Head Head exam: atraumatic, normocephalic, normal inspection - Eye Eye exam: Present: normal appearance, PERRL, EOMI - Chest Chest inspection: Present: normal inspection, symmetric chest wall rise - Respiratory Respiratory exam: Present: respiratory distress, wheezes, accessory muscle use - Cardiovascular Cardiovascular exam: Present: regular rate, normal rhythm, normal heart sounds - Abdominal Exam Abdominal exam: Present: soft, Non-Tender. Absent: tenderness, distention, guarding, rebound, rigidity - Extremities Exam Extremities exam: Present: normal inspection, full ROM, other (Patient is currently wearing stockings to reduce swelling. No obvious swelling above compression stockings noted.). Absent: tenderness, pedal edema - Back Exam Back exam: Present: normal inspection, full ROM. Absent: tenderness - Neurological Exam Neurological exam: Present: alert, oriented X3 - Skin Skin exam: Present: warm, dry, intact, normal color Course Vital Signs Temperature 98.1 F 11/17/16 12:07 Pulse Rate 96 11/17/16 12:07 Respiratory Rate 20 11/17/16 12:07 Blood Pressure 154/79 11/17/16 12:07 O2 Sat by Pulse Oximetry 88 11/17/16 12:07 Temperature 97.9 F 11/17/16 16:47 Pulse Rate 87 11/17/16 16:47 Respiratory Rate 16 11/17/16 16:47 Blood Pressure 123/71 11/17/16 16:47 O2 Sat by Pulse Oximetry 94 11/17/16 16:47 Oxygen Delivery Oxygen Delivery Nasal Cannula Shortness of Breath/Dyspnea - Lab Data Result diagrams: 11/17/16 14:12 11/17/16 14:12 Lab Results 11/17/16 11/17/16 11/17/16 Range/Units 14:12 14:12 14:12 WBC 9.1 (4.3-11.1) K/mcL RBC 5.18 (4.19-5.50) M/mcL Hgb 15.9 (12.9-16.9) g/dL Hct 46.3 (37.5-50.1) % MCV 89.4 (83.0-100.0) fL MCH 30.7 (28.0-33.3) pg MCHC 34.3 (31.6-35.5) g/dL RDW 13.7 (11.5-14.5) % Plt Count 183 (140-400) K/mcL MPV 10.6 (9.4-12.4) fL Immature Gran % 0.8 (0-4) % Seg Neutrophils % 84.5 % Lymphocytes % 9.8 % Monocytes % 3.7 % Eosinophils % 0.7 % Basophils % 0.5 % Neutrophils # 7.7 (1.6-8.9) K/mcL Lymphocytes # 0.9 (0.6-4.6) K/mcL Monocytes # 0.3 (0.0-1.3) K/mcL Eosinophils # 0.1 (0.0-0.6) K/mcL Basophils # 0.1 (0.0-0.2) K/mcL Sodium 139 (136-145) mEq/L Potassium 4.1 (3.5-4.5) mEq/L Chloride 107 (98-109) mEq/L Carbon Dioxide 23 (19-29) mEq/L BUN 13 (8-26) mg/dL Creatinine 0.90 (0.72-1.25) mg/dL Est GFR ( Amer) > 60 (> 60) Est GFR (Non-Af Amer) > 60 (> 60) BUN/Creatinine Ratio 14 (6-26) Glucose 196 H (70-99) mg/dL Calculated Osmolality 294 (280-300) Calcium 9.4 (8.6-10.8) mg/dL Magnesium 1.7 (1.6-2.6) mg/dL - EKG Data EKG attestation: Yes I reviewed and interpreted this EKG. EKG results narrative: Heart rate 93 bpm. WV interval 204 ms. QTC 390 ms. Normal axis. Normal sinus rhythm. No ST elevation or ST depression noted. EKG identical from EKG from 10/15/2016. No acute changes noted. Attestation Statement - Attestation Attestation: Patient was seen with resident physician. I reviewed the history, physical, assessment and plan, and agree with the findings. I also personally evaluated this patient and had [id number] time with this patient. 76-year-old male who comes to the emergency department with a 2 to three-day history of worsening shortness of breath. Patient states a history of both CHF and COPD and is on home O2 at 4 L. States that he has had a somewhat productive cough which is also been getting worse. He has had increasing shortness of breath, but denies increased swelling in the lower extremities or weight gain. No fevers or chills. On exam vital signs patient's hypoxic but otherwise stable. Heart regular rhythm and rate. Lungs diffuse wheezing throughout with some crackles as well. Abdomen soft and nontender. Extremities unremarkable no appreciable swelling. Neurologically intact. ED course we will treat for COPD exacerbation also get a chest x-ray which showed help us determine if he has had some CHF. Patient did take an extra dose of Lasix as a preventative measure prior to coming to the emergency department. depending on the findings of the workup will ultimately determine disposition. Although patient was improved with 3 breathing treatments, not to the point that we could justify dispositioning to home. We felt that further oxygen therapy as well as respiratory therapy was indicated in this patient. Hospitalist was notified and admission was arranged. Agree with the resident physician assessment and plan.
[2016-11-17 14:19] LABS: Hematocrit 46.3 % (37.5-50.1); Hemoglobin 15.9 g/dL (12.9-16.9); Immature Granulocytes % 0.8 % (0-4); Lymphocytes % 9.8 %; Mean Corpuscular HGB Conc 34.3 g/dL (31.6-35.5); Mean Corpuscular Hemoglobin 30.7 pg (28.0-33.3); Mean Corpuscular Volume 89.4 fL (83.0-100.0); Mean Platelet Volume 10.6 fL (9.4-12.4); Platelet Count 183 K/mcL (140-400); Red Blood Count 5.18 M/mcL (4.19-5.50); Red Cell Distribution Width 13.7 % (11.5-14.5); Segmented Neutrophils % 84.5 %
[2016-11-17 14:20] LABS: Basophils # 0.1 K/mcL (0.0-0.2); Basophils % 0.5 %; Eosinophils # 0.1 K/mcL (0.0-0.6); Eosinophils % 0.7 %; Lymphocytes # 0.9 K/mcL (0.6-4.6); Monocytes # 0.3 K/mcL (0.0-1.3); Monocytes % 3.7 %; Neutrophils # 7.7 K/mcL (1.6-8.9)
[2016-11-17 14:30] LABS: BUN/Creatinine Ratio 14 (6-26); Blood Urea Nitrogen 13 mg/dL (8-26); Calcium 9.4 mg/dL (8.6-10.8); Carbon Dioxide 23 mEq/L (19-29); Chloride 107 mEq/L (98-109); Glucose 196 mg/dL (70-99); Osmolality,Calculated 294 (280-300); Potassium 4.1 mEq/L (3.5-4.5); Sodium 139 mEq/L (136-145); eGFR For African Americans > 60 (> 60); eGFR For Non-African Americans > 60 (> 60)
[2016-11-17] MEDS ORDERED: Naloxone 0.4 MG/ML INJ IVP PRN (15:00)
[2016-11-17] MEDS ORDERED: Albuterol 2.5 MG/3 ML NEBULIZER IH PRN (15:04)
[2016-11-17] MEDS ORDERED: Benzonatate 100 MG CAPSULE PO PRN (15:05)
--- NOTE | 2016-11-17 15:08 | Event Note ---
Date of Encounter: 11/17/16 Time of Encounter: 15:06 Patient seen and examined with nurse practitioner. Acute COPD exacerbation and acute diastolic congestive heart failure exacerbation. IV steroids nebulizer treatments and Levaquin for acute bronchitis and COPD exacerbation and Lasix 40 mg IV daily for CHF. Patient is full code. Inpatient admission
--- NOTE | 2016-11-17 15:10 | Internal Med History&Physical ---
Date of Encounter: 11/17/16 Time of Encounter: 15:00 Assessment and Plan (1) Acute exacerbation of chronic obstructive airways disease Current visit: No Status: Acute Patient presents with increasing shortness of breath and hypoxia. Satting 83% on room air, 88% on 4 L initially. Patient improved after steroids and nebulizers to 94% on 4 L. He does wear 4 L of oxygen at home 05/01. Chest x- ray showed mild bibasilar atelectasis with no definite focal consolidation. On exam diffuse wheezing and rhonchi. Solu-Medrol 80 mg IV push 3 times a day DuoNeb treatments 4 times a day Albuterol nebulizer every 2 when necessary Budesonide/formoterol twice a day Levaquin IV piggyback daily Titrate oxygen to maintain saturation greater than 90%. Continuous pulse oximetry (2) CHF (congestive heart failure) Current visit: Yes Status: Chronic Patient with diastolic congestive heart failure. Echo in May 2016 showed LVEF of 60%, normal LV size and systolic function, evidence of mild diastolic dysfunction. Patient with mild +1 bilateral lower extremity edema. Reporting this is about baseline but maybe a little bit worse. We will give 40 mg IV push Lasix daily. Symptoms more consistent with COPD exacerbation than CHF exacerbation. Qualifiers: Congestive heart failure type: diastolic Congestive heart failure chronicity: chronic Qualified Code(s): I50.32 - Chronic diastolic (congestive ) heart failure (3) Diabetes mellitus, type II Current visit: No Status: Chronic Controlled as evidenced by hemoglobin A1c of 7.6% on September 16. Hold metformin Diabetic diet Check blood sugars before meals at bedtime Continue home basal dose of insulin Levemir 15u qPM and 5u qAM. Sliding scale correction dose before meals at bedtime Hypoglycemic protocol Qualifiers: Diabetes mellitus complication status: with unspecified complications Diabetes mellitus skilled nursing insulin use: without skilled nursing use Qualified Code( s): E11.8 - Type 2 diabetes mellitus with unspecified complications (4) DVT prophylaxis Current visit: No Status: Acute Antiembolic stockings Lovenox 40 mg subcutaneous daily Internal Medicine - H&P: HPI Chief complaint: shortness of breath Admitted From: Emergency Dept Plans for Post Hospital Care: Home History of present illness: Mr. Madrid is a 76 year old male with COPD, CHF, hypertension, type 2 diabetes, GERD presented to the emergency department today with complaints of increasing shortness of breath. Patient reports that his shortness of breath has been worsening over the last 2 days. When he woke up this morning he checked his oxygen saturation and it was 83%. He took a DuoNeb treatment and oxygen saturation improved a little bit but was still not at his baseline in the 90s. He reports he feels exhausted, and fatigued.e denies any headache, lightheadedne he reports a productive cough, however this is not any worse or more productive than his usual baseline. He denies any nausea, vomiting, abdominal pain. He denies any fever or chills. Evaluation in emergency department included a chest x-ray which showed mild bibasilar atelectasis, no definite focal consolidation. He was satting 83% on room air, 88% on 4 L in the emergency department. After steroids and DuoNeb treatments his saturation improved to 94% on 4 L. On exam, patient alert and oriented, in no acute distress. Lungs with bilateral diffuse wheezing and rhonchi. Heart had regular rate and rhythm. Bilateral lower extremities with +1 pitting edema. He had some mild right-sided abdominal tenderness. Past Med Surg Social Fam HX - Past Medical History Medical history: arthritis, asthma, cancer, CHF, COPD, diabetes, GERD, hypertension, other Psychiatric history: no psych history - Past Surgical History Surgical History: appendectomy, cholecystectomy, herniorrhaphy, other - Social History Smoking Status: Former smoker Smokeless Tobacco Status: No Alcohol use: none Drug use: none - Family History Father Living Status: Hx Family Neurologic Disorders: Yes (stroke) Mother Living Status: Age at : 83 Hx Family Endocrine Disorder: Yes (diabetes) Internal Medicine - H&P: Meds Albuterol Sulfate [Proair Hfa] 2 puff IH Q4H PRN 09/08/15 [History] Budesonide/Formoterol 160/4.5 [Symbicort 160/4.5] 2 puff IH BID 09/08/15 [ History] Finasteride [Proscar] 5 mg PO HS 09/08/15 [History] Fluticasone Propionate Nasal [Flonase] 50 mcg NS DAILY 09/08/15 [History] Amlodipine Besylate 10 mg PO DAILY 11/13/15 [History] Guaifenesin [Mucinex] 600 mg PO BID 11/13/15 [History] Montelukast [Singulair] 10 mg PO HS 11/13/15 [History] Ranitidine HCl [Zantac] 150 mg PO BID 11/13/15 [History] Benzonatate [Tessalon] 100 mg PO TID PRN 02/09/16 [History] Furosemide [Lasix] 40 mg PO BID 02/09/16 [History] Loratadine [Claritin] 10 mg PO DAILY 02/09/16 [History] Nystatin [Nystatin Suspension] 15 ml PO BID 02/09/16 [History] Potassium Chloride [K-Tab ER] 20 meq PO DAILY 02/09/16 [History] Albuterol Neb [Proventil Neb] 2.5 mg IH QID 04/15/16 [History] Evans-3/Dha/Epa/Fish Oil [Fish Oil 1,000 mg Softgel] 1,000 mg PO DAILY 04/15/16 [History] Oxygen 4 l NS CONT 04/15/16 [History] metFORMIN [Glucophage] 500 mg PO BID 04/15/16 [History] Ipratropium/Albuterol Neb [Duoneb] 3 ml IH Q2QSWDT PRN #90 inhsol 06/30/16 [Rx] Polyethylene Glycol 3350 [MiraLAX] 17 gm PO DAILY PRN #10 powd.pack 06/30/16 [Rx ] Gabapentin [Neurontin] 300 mg PO TID 11/17/16 [History] Insulin DETEMIR [Levemir Flextouch] 5 unit SQ QAM 11/17/16 [History] Insulin DETEMIR [Levemir Flextouch] 15 unit SQ QPM 11/17/16 [History] Sennosides/Docusate Sodium [Senna Plus] 1 each PO DAILY 11/17/16 [History] predniSONE [PredniSONE] 10 - 20 mg PO DAILY 11/17/16 [History] Allergies tobramycin Allergy (Severe, Verified 07/28/16 14:11) Difficulty Breathing All Systems PM: A 10-system review of systems was performed and is negative for pertinent findings except as documented above in the HPI. - Constitutional Constitutional: fatigue, no chills, no fever(s), no night sweats - EENT Eyes: no change in vision, no discharge, no pain, no photophobia Ears: no ear discharge, no ear pain, no tinnitus Nose, mouth and throat: no dysphagia, no nasal discharge, no neck pain, no sore throat - Cardiovascular Cardiovascular ROS IM: dyspnea, dyspnea on exertion, edema, no chest pain, no diaphoresis, no lightheadedness, no palpitations, no syncope - Respiratory Respiratory: cough, dyspnea, dyspnea on exertion, wheezing, no excessive phlegm production - Gastrointestinal Gastrointestinal: no abdominal pain, no diarrhea, no hematemesis, no hematochezia, no melena, no nausea, no vomiting - Musculoskeletal Musculoskeletal ROS IM: no numbness, no tingling - Integumentary Integumentary IM: no rash, no unusual bruising - Neurological Neurological ROS: no confusion, no convulsions, no focal weakness, no numbness, no tingling, no tremor(s) - Hematologic/Lymphatic Hematologic/Lymphatic: no easy bruising - Constitutional Vitals: Temp Pulse Resp BP Pulse Ox 98.1 F 92 18 116/69 94 11/17/16 12:07 11/17/16 13:47 11/17/16 13:47 11/17/16 13:47 11/17/16 13:47 General appearance: Present: A&O X 3, pleasant, no acute distress - Head Head exam: Present: atraumatic, normocephalic - Eye Eye exam: Present: PERRL, conjuntiva pink, sclera anicteric Pupils: Present: PERRL - Neck Neck exam general surgery: Present: supple, trachea midline. Absent: lymphadenopathy - Respiratory Respiratory exam: Present: rhonchi, wheezes. Absent: accessory muscle use, rales - Cardiovascular Cardiovascular exam: Present: RRR, +S1, +S2. Absent: diastolic murmur, gallop, rubs, systolic murmur - GI/Abdominal GI/Abdominal exam: Present: normal bowel sounds, soft, tenderness (mild, right sided), no peritoneal signs. Absent: distended - Extremities Exam Extremities exam: Present: pedal edema (+1 BLE), warm, radial pulses palpable and symetrical. Absent: calf tenderness, cyanotic - Neurological Exam Neurological exam: Present: CN II-XII intact, oriented X3, no focal deficits. Absent: pronater drift, facial droop, speech deficit - Skin Skin exam: Present: dry, intact Internal Med - H&P Results - Labs CBC & Chem 7: 11/17/16 14:12 11/17/16 14:12 Labs: All Lab Results (24 Hours) 11/17/16 11/17/16 11/17/16 Range/Units 14:12 14:12 14:12 WBC 9.1 (4.3-11.1) K/mcL RBC 5.18 (4.19-5.50) M/mcL Hgb 15.9 (12.9-16.9) g/dL Hct 46.3 (37.5-50.1) % MCV 89.4 (83.0-100.0) fL MCH 30.7 (28.0-33.3) pg MCHC 34.3 (31.6-35.5) g/dL RDW 13.7 (11.5-14.5) % Plt Count 183 (140-400) K/mcL MPV 10.6 (9.4-12.4) fL Immature Gran % 0.8 (0-4) % Seg Neutrophils % 84.5 % Lymphocytes % 9.8 % Monocytes % 3.7 % Eosinophils % 0.7 % Basophils % 0.5 % Neutrophils # 7.7 (1.6-8.9) K/mcL Lymphocytes # 0.9 (0.6-4.6) K/mcL Monocytes # 0.3 (0.0-1.3) K/mcL Eosinophils # 0.1 (0.0-0.6) K/mcL Basophils # 0.1 (0.0-0.2) K/mcL Sodium 139 (136-145) mEq/L Potassium 4.1 (3.5-4.5) mEq/L Chloride 107 (98-109) mEq/L Carbon Dioxide 23 (19-29) mEq/L BUN 13 (8-26) mg/dL Creatinine 0.90 (0.72-1.25) mg/dL Est GFR ( Amer) > 60 (> 60) Est GFR (Non-Af Amer) > 60 (> 60) BUN/Creatinine Ratio 14 (6-26) Glucose 196 H (70-99) mg/dL Calculated Osmolality 294 (280-300) Calcium 9.4 (8.6-10.8) mg/dL Magnesium 1.7 (1.6-2.6) mg/dL - Impressions ITS Impressions Chest X-Ray 11/17/16 12:31 IMPRESSION: Mild bibasilar atelectasis. No definite focal consolidation. D/ / Chica Meier MD / Chica Meier MD Interpreting Provider: Chica Meier MD - Diagnostic Studies Chest x-ray Additional comments: Chest X-Ray 11/17/16 12:31
[2016-11-17] MEDS ORDERED: Dextrose Gel 15 GM PO PRN ×2 (15:17)
[2016-11-17] MEDS ORDERED: D5% in Water 1,000 ML IVC PRN (15:17)
[2016-11-17] MEDS ORDERED: *HR* Dextrose 50 % in Water (Syg) 50 ML SYRINGE IVP PRN (15:17)
[2016-11-17] MEDS: Ipratropium/Albuterol Neb 3 ML IH SCH ×2 (16:24→22:30)
[2016-11-17] MEDS: methylPREDNISolone 125 MG/2 ML VIAL IVP SCH (17:25)
[2016-11-17] MEDS: Furosemide 40 MG/4 ML VIAL IVP SCH (17:25)
[2016-11-17] MEDS: Insulin LISPRO 300 UNITS/3 ML VIAL SQ SCH (17:26)
[2016-11-17] MEDS: Levofloxacin 750 MG/150 ML 750 MG/150 ML BAG IVPB SCH (17:27)
[2016-11-17] MEDS ORDERED: NON-FORMULARY MEDICATION 1 EACH EACH (Insulin Detemir [Levemir Flextouch] 15 UNIT) SQ SCH (18:00)
[2016-11-17] MEDS ORDERED: Insulin LISPRO 300 UNITS/3 ML VIAL SQ SCH (21:00)
[2016-11-17] MEDS: Insulin DETEMIR 100 UNIT/ML X5UNITS SQ SCH (21:42)
[2016-11-17] MEDS: Famotidine 20 MG TABLET PO SCH (21:44)
[2016-11-17] MEDS: Finasteride 5 MG TABLET PO SCH (21:44)
[2016-11-17] MEDS: Gabapentin 300 MG CAPSULE PO SCH (21:44)
[2016-11-17] MEDS: Nystatin SUSP 5 ML UD.LIQ PO SCH (21:46)
[2016-11-17] MEDS: Budesonide/Formoterol 160/4.5 MDI IH SCH (22:30)
[2016-11-18] MEDS: methylPREDNISolone 125 MG/2 ML VIAL IVP SCH ×4 (00:06→23:46)
[2016-11-18] MEDS: Ipratropium/Albuterol Neb 3 ML IH SCH ×4 (04:19→22:38)
[2016-11-18] MEDS: *HR* Enoxaparin 40 MG/0.4 ML SYRINGE SQ SCH (06:11)
[2016-11-18 06:51] LABS: Basophils % 0.1 %; Hemoglobin 15.3 g/dL (12.9-16.9); Immature Granulocytes % 0.6 % (0-4); Immature Platelets 5.1 % (1.1-6.1); Lymphocytes # 0.7 K/mcL (0.6-4.6); Lymphocytes % 7.2 %; Mean Corpuscular HGB Conc 34.8 g/dL (31.6-35.5); Mean Corpuscular Hemoglobin 30.7 pg (28.0-33.3); Mean Corpuscular Volume 88.4 fL (83.0-100.0); Mean Platelet Volume 11.4 fL (9.4-12.4); Monocytes # 0.2 K/mcL (0.0-1.3); Monocytes % 1.8 %; Neutrophils # 8.8 K/mcL (1.6-8.9); Platelet Count 193 K/mcL (140-400); Red Blood Count 4.98 M/mcL (4.19-5.50); Red Cell Distribution Width 13.5 % (11.5-14.5); Segmented Neutrophils % 90.3 %
[2016-11-18 07:05] LABS: BUN/Creatinine Ratio 18 (6-26); Blood Urea Nitrogen 17 mg/dL (8-26); Calcium 9.5 mg/dL (8.6-10.8); Carbon Dioxide 23 mEq/L (19-29); Chloride 105 mEq/L (98-109); Glucose 261 mg/dL (70-99); Osmolality,Calculated 297 (280-300); Sodium 138 mEq/L (136-145); eGFR For African Americans > 60 (> 60); eGFR For Non-African Americans > 60 (> 60)
[2016-11-18] MEDS: Budesonide/Formoterol 160/4.5 MDI IH SCH ×2 (07:57→22:38)
[2016-11-18] MEDS: Insulin DETEMIR 100 UNIT/ML X5UNITS SQ SCH ×2 (08:11→21:36)
[2016-11-18] MEDS: Insulin LISPRO 300 UNITS/3 ML VIAL SQ SCH ×4 (08:11→21:37)
[2016-11-18] MEDS: Levofloxacin 750 MG/150 ML 750 MG/150 ML BAG IVPB SCH (08:12)
[2016-11-18] MEDS: Furosemide 40 MG/4 ML VIAL IVP SCH (08:12)
[2016-11-18] MEDS: Nystatin SUSP 5 ML UD.LIQ PO SCH ×2 (08:12→21:36)
[2016-11-18] MEDS: Loratadine 10 MG TABLET PO SCH (08:13)
[2016-11-18] MEDS: Famotidine 20 MG TABLET PO SCH ×2 (08:13→21:35)
[2016-11-18] MEDS: Sennosides/Docusate Sodium TABLET PO SCH (08:13)
[2016-11-18] MEDS: amLODIPine 5 MG TABLET PO SCH (08:14)
[2016-11-18] MEDS: Gabapentin 300 MG CAPSULE PO SCH ×3 (08:14→21:35)
[2016-11-18] MEDS ORDERED: NON-FORMULARY MEDICATION 1 EACH EACH (Insulin Detemir [Levemir Flextouch] 5 UNIT) SQ SCH (09:00)
[2016-11-18] MEDS: Fluticasone Propionate Nasal 50 MCG/SPRAY BOTTLE NS SCH (12:58)
--- NOTE | 2016-11-18 15:36 | Internal Med Progress Note ---
Date of Encounter: 11/18/16 Time of Encounter: 09:30 - Assessment and plan (1) Acute exacerbation of chronic obstructive airways disease Current Visit: No Status: Acute Assessment and plan: Patient reports dry hacking, sometimes productive, cough for last 2-3 days. He become short of breath with cough and after coughing episode. Patient reports that he does have asthma and emphysema. He quit smoking 40 years ago. He wears 4 L oxygen at home, as well as here. He is not requiring additional oxygenation. He says he is fatigued from his cough. He does have wheezing and rhonchi in all lung [place]. He is unable to take a deep breath without becoming short of breath and coughing extensively. Chest x-ray showed mild bibasilar atelectasis with no focal consolidation. We will continue Solu-Medrol 80 mg IV 3 times a day DuoNeb treatments 4 times a day scheduled Albuterol nebulizer every 2 hours when necessary wheezing Budesonide/formoterol 3 times a day Levaquin IV daily Oxygen, titrate to keep sats greater than 92%, Continuous pulse ox Continue to monitor vitals and patient condition. (2) Diabetes Current Visit: No Status: Chronic Assessment and plan: Sliding scale insulin. We will increase to moderate control due to steroid use Accu-Cheks before meals at bedtime Diabetic diet A1c was 7.6 two months ago. Qualifiers: Diabetes mellitus type: type 2 Diabetes mellitus complication status: with hyperglycemia Diabetes mellitus fci insulin use: without fci use Qualified Code(s): E11.65 - Type 2 diabetes mellitus with hyperglycemia (3) CHF (congestive heart failure) Current Visit: Yes Status: Chronic Assessment and plan: Chronic diastolic heart failure. Echo in May showed LVEF of 60% normal systolic function, evidence of mild diastolic dysfunction. Patient with +1 bilateral lower extremity edema and he wears ROBERTO hose normally. He says this is normal for him. Will continue Lasix 40 mg IV push daily. Qualifiers: Congestive heart failure type: diastolic Congestive heart failure chronicity: chronic Qualified Code(s): I50.32 - Chronic diastolic (congestive ) heart failure (4) DVT prophylaxis Current Visit: No Status: Acute Assessment and plan: Patient wearing ROBERTO hose from home. Lovenox subcutaneous daily. - Time Spent With Patient less than 15 minutes - Subjective Interval history: Patient was seen and assessed at 9:30 AM. He reports a cough 2-3 days. Is dry and hacking. He does become short of breath with his cough, he becomes short of breath after his cough. He is getting IV Levaquin. He reports both asthma and emphysema, quit smoking 40 years ago. He does wear 4 L oxygen at home and uses [employer]. He is getting 4 L of oxygen here as well. He says he feels as if he is not ready to go home yet and states that he is fatigued from his cough. He has requested that I change his cough medicine to Robitussin. Robitussin 200 mg as needed for cough. He says Tessalon Perles are not working this time for him and I have stopped them. I also stopped the Mucinex since it is duplicate of the Robitussin. He said last time he was here Robitussin worked better for him. We will continue to monitor - Constitutional Vitals: Temp Pulse Resp BP Pulse Ox 97.8 F 89 16 125/71 92 11/18/16 15:27 11/18/16 15:27 11/18/16 15:27 11/18/16 15:27 11/18/16 15:27 General appearance: Present: cooperative, A&O X 3, pleasant, no acute distress, answers questions appropriately - Head Head exam: Present: normal inspection - Eye Eye exam: Present: normal appearance, conjuntiva pink - ENT ENT exam: Present: mucous membranes moist, normal exam - Neck Neck exam general surgery: Present: normal inspection. Absent: lymphadenopathy , tenderness - Respiratory Respiratory exam: Present: decreased breath sounds, respiratory distress, rhonchi, wheezes. Absent: chest wall tenderness, CTAB Additional comments: Patient in mild respiratory distress after lengthy coughing fit. Says this is normal for him. - Cardiovascular Cardiovascular exam: Present: RRR, +S1, +S2. Absent: diastolic murmur, distant heart sounds, systolic murmur - GI/Abdominal GI/Abdominal exam: Present: normal bowel sounds, soft. Absent: hepatomegaly, tenderness - Extremities Exam Extremities exam: Present: normal inspection, warm, radial pulses palpable and symetrical. Absent: pedal edema, tenderness Additional comments: Patient wearing ROBERTO hose. - Neurological Exam Neurological exam: Present: alert, oriented X3, no focal deficits, strengths equal and symetr throughout. Absent: facial droop, speech deficit Internal Medicine: Result - Labs CBC & Chem 7: 11/18/16 05:44 11/18/16 05:44 Labs: Short CBC 11/18/16 Range/Units 05:44 WBC 9.8 (4.3-11.1) K/mcL Hgb 15.3 (12.9-16.9) g/dL Hct 44.0 (37.5-50.1) % Plt Count 193 (140-400) K/mcL Neutrophils # 8.8 (1.6-8.9) K/mcL BMP 11/18/16 05:44 Sodium 138 Potassium 4.0 Chloride 105 Carbon Dioxide 23 BUN 17 Creatinine 0.95 Glucose 261 H Calcium 9.5 - VTE Documentation of Mechanical Device: Intermittent pneumatic compression device Consult Discharge Plan - Plan Referrals: Sheela Klein MD [Primary Care Provider] - 11/25/16 2:50 pm
[2016-11-18] MEDS ORDERED: D5% in Water 1,000 ML IVC PRN (15:47)
[2016-11-18] MEDS ORDERED: *HR* Dextrose 50 % in Water (Syg) 50 ML SYRINGE IVP PRN (15:47)
[2016-11-18] MEDS ORDERED: Dextrose Gel 15 GM PO PRN ×2 (15:47)
[2016-11-18] MEDS: Finasteride 5 MG TABLET PO SCH (21:36)
[2016-11-19] MEDS: Ipratropium/Albuterol Neb 3 ML IH SCH ×4 (04:20→22:14)
[2016-11-19 04:56] LABS: Basophils % 0.1 %; Hematocrit 43.4 % (37.5-50.1); Hemoglobin 14.9 g/dL (12.9-16.9); Immature Granulocytes % 0.6 % (0-4); Lymphocytes # 0.8 K/mcL (0.6-4.6); Lymphocytes % 5.3 %; Mean Corpuscular HGB Conc 34.3 g/dL (31.6-35.5); Mean Corpuscular Hemoglobin 30.4 pg (28.0-33.3); Mean Corpuscular Volume 88.6 fL (83.0-100.0); Mean Platelet Volume 10.7 fL (9.4-12.4); Monocytes # 0.4 K/mcL (0.0-1.3); Monocytes % 2.7 %; Neutrophils # 13.2 K/mcL (1.6-8.9); Platelet Count 195 K/mcL (140-400); Red Cell Distribution Width 13.3 % (11.5-14.5); Segmented Neutrophils % 91.3 %
[2016-11-19 05:16] LABS: BUN/Creatinine Ratio 25 (6-26); Blood Urea Nitrogen 24 mg/dL (8-26); Calcium 9.6 mg/dL (8.6-10.8); Carbon Dioxide 23 mEq/L (19-29); Chloride 105 mEq/L (98-109); Glucose 263 mg/dL (70-99); Osmolality,Calculated 299 (280-300); Potassium 4.1 mEq/L (3.5-4.5); Sodium 138 mEq/L (136-145); eGFR For African Americans > 60 (> 60); eGFR For Non-African Americans > 60 (> 60)
[2016-11-19] MEDS: *HR* Enoxaparin 40 MG/0.4 ML SYRINGE SQ SCH (06:10)
[2016-11-19] MEDS: Nystatin SUSP 5 ML UD.LIQ PO SCH ×2 (08:39→20:24)
[2016-11-19] MEDS: Furosemide 40 MG/4 ML VIAL IVP SCH (08:41)
[2016-11-19] MEDS: Gabapentin 300 MG CAPSULE PO SCH ×3 (08:41→20:23)
[2016-11-19] MEDS: Loratadine 10 MG TABLET PO SCH (08:41)
[2016-11-19] MEDS: amLODIPine 5 MG TABLET PO SCH (08:41)
[2016-11-19] MEDS: Insulin LISPRO 300 UNITS/3 ML VIAL SQ SCH ×4 (08:41→20:58)
[2016-11-19] MEDS: Sennosides/Docusate Sodium TABLET PO SCH (08:41)
[2016-11-19] MEDS: Famotidine 20 MG TABLET PO SCH ×2 (08:41→20:23)
[2016-11-19] MEDS: Levofloxacin 750 MG/150 ML 750 MG/150 ML BAG IVPB SCH (08:42)
[2016-11-19] MEDS: methylPREDNISolone 125 MG/2 ML VIAL IVP SCH ×2 (08:42→15:39)
[2016-11-19] MEDS: Insulin DETEMIR 100 UNIT/ML X5UNITS SQ SCH ×2 (08:47→20:33)
[2016-11-19] MEDS: GuaiFENesin Liq 200 MG/10 ML UDC PO PRN ×2 (08:47→20:34)
[2016-11-19] MEDS: Fluticasone Propionate Nasal 50 MCG/SPRAY BOTTLE NS SCH (09:00)
[2016-11-19] MEDS: Budesonide/Formoterol 160/4.5 MDI IH SCH ×2 (10:50→22:14)
--- NOTE | 2016-11-19 15:29 | Electrocardiograph Report ---
[facility] Test Date: 2016-11-17 Pat Name: Wilmer Madrid Department: 103 Room: 3B38 Gender: M Pm Head Cook: : 1940 Requested By: Tian Castillo Order Number: [id number] Reading MD: Rene West MD Measurements Intervals [place] Rate: 93 P: 51 MO: 204 QRS: 28 QRSD: 99 T: 83 QT: 339 QTc: 390 Interpretive Statements SINUS RHYTHM POSSIBLE LEFT ATRIAL ENLARGEMENT NONSPECIFIC T-WAVE ABNORMALITY Electronically Signed On 11-19-2016 15:28:11 EDT by Rene West MD
--- NOTE | 2016-11-19 18:59 | Internal Med Progress Note ---
Date of Encounter: 11/19/16 Time of Encounter: 10:00 - Assessment and plan (1) Acute exacerbation of chronic obstructive airways disease Current Visit: No Status: Acute Assessment and plan: Patient is still receiving IV Levaquin. I have decreased his steroids to by mouth prednisone 40 mg by mouth daily. He still has wheezing both anteriorly and posteriorly and a dry hacking cough. He says it is still productive at times. He still wearing oxygen to maintain his sats, he wears oxygen at 4 L at home.. Patient is still having lengthy coughing episodes, however they are less frequent than they were yesterday. He states the Robitussin is working well for him. He states that he feels better today but is not back to baseline and reports a lengthy history of every 2-3 months bouncing back and forth between home in the hospital for several days at a time. His requested another day inpatient to try to avoid bouncing back. Prednisone 40 mg by mouth daily Continue IV Levaquin Continue breathing treatments Oxygen 4 L Pulse ox Monitor vital signs and labs. (2) Diabetes Current Visit: No Status: Chronic Assessment and plan: Sliding scale insulin. We will increase to moderate control due to steroid use Accu-Cheks before meals at bedtime Diabetic diet A1c was 7.6 two months ago. 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 Echo in May showed LVEF of 60% normal systolic function, evidence of mild diastolic dysfunction. Patient with +1 bilateral lower extremity edema and he wears ROBERTO hose normally. He says this is normal for him. Will continue Lasix 40 mg IV push daily. This is not an acute exacerbation. This is an acute exacerbation of COPD more so than CHF. Qualifiers: Congestive heart failure type: diastolic Congestive heart failure chronicity: chronic Qualified Code(s): I50.32 - Chronic diastolic (congestive ) heart failure (4) DVT prophylaxis Current Visit: No Status: Acute Assessment and plan: Patient wearing ROBERTO hose from home. Lovenox subcutaneous daily. - Time Spent With Patient less than 15 minutes - Subjective Interval history: Patient was seen and assessed at about 10:00 AM. He still has a dry hacking cough, however it is less frequent. He said the Robitussin is working well for him. He is still needing supplemental oxygen and is still getting IV Levaquin. He did have some leukocytosis today, most likely due to 80 mg IV Medrol IV every 8 hours. I have decreased it to 40 mg by mouth daily. Patient states that he will be ready to go home tomorrow. He says that he has been bouncing back and forth between home and Hospital every 2-3 months for 4 days at a time. His requested another day to stay to try to off weight bouncing back. His lungs are still wheezy throughout. We will continue to monitor his progress. - Constitutional Vitals: Temp Pulse Resp BP Pulse Ox 97.5 F L 83 16 138/68 92 11/19/16 16:24 11/19/16 16:24 11/19/16 16:24 11/19/16 16:24 11/19/16 16:24 General appearance: Present: cooperative, A&O X 3, pleasant, no acute distress, answers questions appropriately - Head Head exam: Present: normal inspection - ENT ENT exam: Present: mucous membranes moist, normal exam, normal external ear exam - Neck Neck exam general surgery: Present: normal inspection. Absent: lymphadenopathy , tenderness - Respiratory Respiratory exam: Present: decreased breath sounds, wheezes. Absent: respiratory distress - Cardiovascular Cardiovascular exam: Present: RRR, +S1, +S2. Absent: clicks, diastolic murmur, gallop, systolic murmur - GI/Abdominal GI/Abdominal exam: Present: normal bowel sounds, soft. Absent: hepatomegaly, tenderness - Neurological Exam Neurological exam: Present: alert, oriented X3, no focal deficits, strengths equal and symetr throughout. Absent: facial droop, speech deficit Internal Medicine: Result - Labs CBC & Chem 7: 11/19/16 04:47 11/19/16 04:47 Labs: Short CBC 11/19/16 Range/Units 04:47 WBC 14.4 H (4.3-11.1) K/mcL Hgb 14.9 (12.9-16.9) g/dL Hct 43.4 (37.5-50.1) % Plt Count 195 (140-400) K/mcL Neutrophils # 13.2 H (1.6-8.9) K/mcL BMP 11/19/16 04:47 Sodium 138 Potassium 4.1 Chloride 105 Carbon Dioxide 23 BUN 24 Creatinine 0.97 Glucose 263 H Calcium 9.6 - VTE Documentation of Mechanical Device: Graduated compression elastic hosiery Consult Discharge Plan - Plan Referrals: Sheela Klein MD [Primary Care Provider] - 11/25/16 2:50 pm
[2016-11-19] MEDS: Finasteride 5 MG TABLET PO SCH (20:22)
[2016-11-20 04:59] LABS: Basophils % 0.1 %; Hematocrit 42.1 % (37.5-50.1); Hemoglobin 14.4 g/dL (12.9-16.9); Immature Granulocytes % 0.6 % (0-4); Lymphocytes # 0.8 K/mcL (0.6-4.6); Lymphocytes % 5.9 %; Mean Corpuscular HGB Conc 34.2 g/dL (31.6-35.5); Mean Corpuscular Hemoglobin 30.9 pg (28.0-33.3); Mean Corpuscular Volume 90.3 fL (83.0-100.0); Mean Platelet Volume 11.6 fL (9.4-12.4); Monocytes # 0.6 K/mcL (0.0-1.3); Neutrophils # 12.7 K/mcL (1.6-8.9); Platelet Count 198 K/mcL (140-400); Red Blood Count 4.66 M/mcL (4.19-5.50); Red Cell Distribution Width 13.6 % (11.5-14.5); Segmented Neutrophils % 89.4 %
[2016-11-20 05:13] LABS: BUN/Creatinine Ratio 29 (6-26); Blood Urea Nitrogen 27 mg/dL (8-26); Calcium 9.3 mg/dL (8.6-10.8); Carbon Dioxide 24 mEq/L (19-29); Chloride 106 mEq/L (98-109); Glucose 225 mg/dL (70-99); Osmolality,Calculated 298 (280-300); Sodium 138 mEq/L (136-145); eGFR For African Americans > 60 (> 60); eGFR For Non-African Americans > 60 (> 60)
[2016-11-20] MEDS: Ipratropium/Albuterol Neb 3 ML IH SCH ×2 (05:26→10:44)
[2016-11-20] MEDS: *HR* Enoxaparin 40 MG/0.4 ML SYRINGE SQ SCH (05:50)
[2016-11-20 07:22] VITALS: BP 134/73
[2016-11-20] MEDS: Fluticasone Propionate Nasal 50 MCG/SPRAY BOTTLE NS SCH (08:22)
[2016-11-20] MEDS: Loratadine 10 MG TABLET PO SCH (08:22)
[2016-11-20] MEDS: Insulin LISPRO 300 UNITS/3 ML VIAL SQ SCH (08:22)
[2016-11-20] MEDS: Levofloxacin 750 MG/150 ML 750 MG/150 ML BAG IVPB SCH (08:23)
[2016-11-20] MEDS: Furosemide 40 MG/4 ML VIAL IVP SCH (08:23)
[2016-11-20] MEDS: Gabapentin 300 MG CAPSULE PO SCH (08:24)
[2016-11-20] MEDS: Famotidine 20 MG TABLET PO SCH (08:24)
[2016-11-20] MEDS: Insulin DETEMIR 100 UNIT/ML X5UNITS SQ SCH (08:24)
[2016-11-20] MEDS: amLODIPine 5 MG TABLET PO SCH (08:24)
[2016-11-20] MEDS: Nystatin SUSP 5 ML UD.LIQ PO SCH (08:24)
[2016-11-20] MEDS: Sennosides/Docusate Sodium TABLET PO SCH (08:25)
[2016-11-20] MEDS ORDERED: predniSONE 20 MG TABLET PO SCH (09:00)
--- NOTE | 2016-11-20 09:27 | Electrocardiograph Report ---
[address] [place] [address] Test Date: 2016-11-20 Pat Name: Wilmer Madrid Department: 113 Room: 3B38 Gender: M Senior Pastor: KATJAMarcelino : 1940 Requested By: Maya Cano Order Number: [id number] Reading MD: Levy Martinez MD Measurements Intervals [place] Rate: 73 P: 33 DC: 211 QRS: 9 QRSD: 116 T: 51 QT: 364 QTc: 390 Interpretive Statements SINUS RHYTHM WITH FIRST DEGREE AV BLOCK POSSIBLE INFERIOR MYOCARDIAL INFARCTION, PROBABLY OLD Electronically Signed On 11-20-2016 9:26:05 EDT by Levy Martinez MD
[2016-11-20] MEDS: Budesonide/Formoterol 160/4.5 MDI IH SCH (10:44)
--- NOTE | 2016-11-20 11:55 | Discharge Summary ---
Date of Encounter: 11/20/16 Time of Encounter: 08:30 - Discharge Diagnosis (1) Acute exacerbation of chronic obstructive airways disease Priority: Primary Status: Acute Comments: Patient states he feels better today and is ready to go home. Lulusin is working well for him. He still has some mild leukocytosis that has remained basically unchanged from yesterday. He has been transitioned to by mouth steroids. He is afebrile and his vitals remained within normal limits. Sitting is still hemorrhage and posterior lung field, however it is better than it has been the last 2 days. He will maintain his 4 L of oxygen when he gets home. His sats have been low 90s on 4 L. He said this is normal for him. He will do a long steroid taper on discharge, as well as Robitussin, and continue his Levaquin for 7 days. He will continue his other home medications at home. (2) Diabetes Priority: Secondary Status: Chronic Comments: Continue home medications. Continue Accu-Cheks at home and diabetic diet. A1c was 7.6. 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 Continue home medications. Qualifiers: Congestive heart failure type: diastolic Congestive heart failure chronicity: chronic Qualified Code(s): I50.32 - Chronic diastolic (congestive ) heart failure (4) DVT prophylaxis Priority: Secondary Status: Acute Comments: Patient wearing ROBERTO hose from home. Lovenox subcutaneous daily. - Discharge Medications Prescriptions: GuaiFENesin Liq [Robitussin Liq] 200 mg PO Q6HR PRN #200 ml PRN Reason: Cough levoFLOXacin [Levaquin] 500 mg PO DAILY #7 tablet predniSONE [PredniSONE] 10 mg PO DAILY #41 tablet Home Medications: Albuterol Sulfate [Proair Hfa] 2 puff IH Q4H PRN 09/08/15 [History] Budesonide/Formoterol 160/4.5 [Symbicort 160/4.5] 2 puff IH BID 09/08/15 [ History] Finasteride [Proscar] 5 mg PO HS 09/08/15 [History] Fluticasone Propionate Nasal [Flonase] 50 mcg NS DAILY 09/08/15 [History] Amlodipine Besylate 10 mg PO DAILY 11/13/15 [History] Guaifenesin [Mucinex] 600 mg PO BID 11/13/15 [History] Montelukast [Singulair] 10 mg PO HS 11/13/15 [History] Ranitidine HCl [Zantac] 150 mg PO BID 11/13/15 [History] Benzonatate [Tessalon] 100 mg PO TID PRN 02/09/16 [History] Furosemide [Lasix] 40 mg PO BID 02/09/16 [History] Loratadine [Claritin] 10 mg PO DAILY 02/09/16 [History] Nystatin [Nystatin Suspension] 15 ml PO BID 02/09/16 [History] Potassium Chloride [K-Tab ER] 20 meq PO DAILY 02/09/16 [History] Albuterol Neb [Proventil Neb] 2.5 mg IH QID 04/15/16 [History] [place]-3/Dha/Epa/Fish Oil [Fish Oil 1,000 mg Softgel] 1,000 mg PO DAILY 04/15/16 [History] Oxygen 4 l NS CONT 04/15/16 [History] metFORMIN [Glucophage] 500 mg PO BID 04/15/16 [History] Ipratropium/Albuterol Neb [Duoneb] 3 ml IH [id number] PRN #90 inhsol 06/30/16 [Rx] Polyethylene Glycol 3350 [MiraLAX] 17 gm PO DAILY PRN #10 powd.pack 06/30/16 [Rx ] Gabapentin [Neurontin] 300 mg PO TID 11/17/16 [History] Insulin DETEMIR [Levemir Flextouch] 5 unit SQ QAM 11/17/16 [History] Insulin DETEMIR [Levemir Flextouch] 15 unit SQ QPM 11/17/16 [History] Sennosides/Docusate Sodium [Senna Plus] 1 each PO DAILY 11/17/16 [History] predniSONE [PredniSONE] 10 - 20 mg PO DAILY 11/17/16 [History] GuaiFENesin Liq [Robitussin Liq] 200 mg PO Q6HR PRN #200 ml 11/20/16 [Rx] levoFLOXacin [Levaquin] 500 mg PO DAILY #7 tablet 11/20/16 [Rx] predniSONE [PredniSONE] 10 mg PO DAILY #41 tablet 11/20/16 [Rx] Allergies/Adverse Reactions: Allergies tobramycin Allergy (Severe, Verified 07/28/16 14:11) Difficulty Breathing Procedures/tests Complete & Pending: Procedures Performed prior 72 hours Category Date Time Status ECG 12 lead ECG [ECG] Routine Y 11/20/16 00:21 Completed Date of admission: 11/18/16 15:29 Primary care physician: Sheela Klein MD Discharging clinician: Mary Anne Byrnes Anticipated date of discharge: 11/20/16 - Patient Status Disposition: Home, Self-Care Condition: Good Functional capacity at discharge: independent ambulation Overall status at discharge: patient is progressing back to baseline - Discharge Instructions Instructions: Heart Failure (DC), Chronic Obstructive Pulmonary Disease (DC) Follow Up With: Sheela Klein MD [Primary Care Provider] - 11/25/16 2:50 pm Additional Instructions: Start your new medications tomorrow. Follow up with your family doctor within the next week to 10 days. Stay inside, wear your oxygen, and relax. Return to the ER as needed for any problems or concerns. - Diet and Activity Activity: increase activity as tolerated, wear oxygen at all times Diet: advance to your usual diet Hospital course: Mr. Madrid is a 76 year old male past medical history of COPD CHF and diabetes. Patient presented to the emergency department with increasing shortness of breath and hypoxia. His room air sats were 83%, 88% on 4 L initially. He does wear 4 L of oxygen round the clock at home. He was admitted and treated with IV steroids, nebulizers and, IV Levaquin. His chest x-ray showed mild bibasilar atelectasis with no definite focal consolidation. He does report a sometimes productive cough with white sputum. Cough that I have heard is dry and hacking. He does become short of breath after coughing episodes. Today he states that he feels much better than he has in the past and that he is ready to go home. Short Fuze is working well for him. Patient had an EKG this morning showed normal sinus rhythm with first-degree block, this is unchanged from prior studies. Rate is 73 IN interval is 211, QTC 390. Patient's lungs today with wheezing and posterior triana, is significantly better today than it has been since admission. He does say that he feels better. Patient also wears ROBERTO hose at all times. He has no peripheral edema. This is more COPD exacerbation and CHF. Patient will be given an long prednisone taper for home, Robitussin, and Levaquin 500 mg po for 6 days. He will need to follow up with primary care physician for continued therapy. He reports that he has been bouncing back and forth every 2-3 months between home in the hospital. He does have some leukocytosis. Most likely due to steroids. He is being treated with Levaquin for COPD exacerbation. His glucose is also elevated, he is aware of this. His vital signs have remained stable, he has 4 L of oxygen that he wears at home. He is maintaining his sats in the low to mid 90s. Patient is stable and appropriate for discharge. - Time Spent with Patient Total time spent providing and/or coordinating discharge services: Less than 30 minutes - Constitutional Vitals: Temp Pulse Resp BP Pulse Ox 97.5 F L 73 16 134/73 94 11/20/16 07:21 11/20/16 07:21 11/20/16 10:46 11/20/16 07:21 11/20/16 10:46 General appearance: Present: cooperative, A&O X 3, pleasant, no acute distress, answers questions appropriately - Head Head exam: Present: normal inspection - Eye Eye exam: Present: normal appearance, conjuntiva pink. Absent: nystagmus - ENT ENT exam: Present: mucous membranes moist, normal exam - Neck Neck exam general surgery: Present: normal inspection. Absent: lymphadenopathy , tenderness - Respiratory Respiratory exam: Present: decreased breath sounds, wheezes. Absent: rales, respiratory distress, rhonchi, stridor - Cardiovascular Cardiovascular exam: Present: RRR, +S1, +S2. Absent: clicks, diastolic murmur, gallop, systolic murmur - GI/Abdominal GI/Abdominal exam: Present: normal bowel sounds, soft. Absent: distended, firm , hepatomegaly, tenderness - Extremities Exam Extremities exam: Present: warm, radial pulses palpable and symetrical. Absent : mottling, pedal edema, tenderness - Neurological Exam Neurological exam: Present: alert, oriented X3, no focal deficits, strengths equal and symetr throughout. Absent: facial droop, speech deficit - VTE Documentation of Mechanical Device: Graduated compression elastic hosiery
== END 2016-11-20 13:17 | disposition home or self-care (01) | DRG 191 ==
LOC: 3BNU 12:06 → EMEROO 12:06 → 3BNU 15:55
PROVIDERS: ADMIT Registered Nurse; ATTEND Nurse Practitioner Family

== ENCOUNTER 2016-11-21 10:59 | Inpatient (IN) ==
[2016-11-21 11:40] LABS: Hematocrit 45.2 % (37.5-50.1); Hemoglobin 15.4 g/dL (12.9-16.9); Immature Granulocytes % 0.8 % (0-4); Lymphocytes # 0.6 K/mcL (0.6-4.6); Lymphocytes % 7.8 %; Mean Corpuscular HGB Conc 34.1 g/dL (31.6-35.5); Mean Corpuscular Hemoglobin 30.6 pg (28.0-33.3); Mean Corpuscular Volume 89.9 fL (83.0-100.0); Mean Platelet Volume 10.6 fL (9.4-12.4); Monocytes # 0.5 K/mcL (0.0-1.3); Monocytes % 6.6 %; Neutrophils # 6.6 K/mcL (1.6-8.9); Platelet Count 162 K/mcL (140-400); Red Blood Count 5.03 M/mcL (4.19-5.50); Red Cell Distribution Width 13.8 % (11.5-14.5); Segmented Neutrophils % 84.8 %
[2016-11-21 11:52] LABS: BUN/Creatinine Ratio 22 (6-26); Blood Urea Nitrogen 23 mg/dL (8-26); Carbon Dioxide 22 mEq/L (19-29); Chloride 106 mEq/L (98-109); Glucose 285 mg/dL (70-99); Osmolality,Calculated 300 (280-300); Potassium 4.3 mEq/L (3.5-4.5); Sodium 138 mEq/L (136-145); eGFR For African Americans > 60 (> 60); eGFR For Non-African Americans > 60 (> 60)
--- NOTE | 2016-11-21 11:59 | Emergency Department Note ---
Disposition Clinical Impression: Hemoptysis, Hypoxia COPD (chronic obstructive pulmonary disease) Qualifiers: COPD type: unspecified COPD Qualified Code(s): J44.9 - Chronic obstructive pulmonary disease, unspecified Disposition: Admitted As Inpatient Condition: Fair Referrals: Sheela Klein MD [Primary Care Provider] - Forms: ED Satisfaction Letter Time of Disposition: 14:29 SOB HPI - General Chief Complaint: ED Shortness of Breath/Dyspnea Stated Complaint: SHAHBAZ, spitting up blood Time Seen by Provider: 11/21/16 11:15 Source: patient, family Mode of arrival: private vehicle Limitations: age Nursing Notes Reviewed: Yes Vital Signs Reviewed: Yes - History of Present Illness 76 year old male with PMHx of COPD (on 4L home oxygen all the time), diastolic CHF (last echo from 12/25/15 showed LVEF 60%), HTN, DM, obesity, chronic bronchitis. Patient was just discharged yesterday from the hospital after being treated for COPD exacerbation. Since this morning he has been having bright red , foamy hemoptysis with shortness of breath, which is chronic for him. Patient denies any calf pain, denies chest pain. He does have a mild sore senation in his chest, but he believes that this is from coughing. He denies any recent long airplane rides, denies recent surgeries. He is quite mobile at home. Patient did smoke for 20 years, 2PPD. He denies any alcohol use. Patient has had bronchoscopies in the past that have been negative for acid fast stain. He has had sputum cultures in the past that have grown pseudomonas, haemophilus influenza II. Pt Subjective Complaint: shortness of breath, cough Onset (ago): hour(s) Severity: moderate Improves with: nothing Worsens with: nothing Known history of: COPD, recurrent pneumonia Associated symptoms: Reports: cough, wheezing, sputum production, hemoptysis. Denies: chest pain, fever, palpitations Treatment prior to arrival: none Cough present: Yes Cough Description: Involuntary, Productive Cough Frequency: Intermittent Sputum production: Yes Sputum Color: Mike Red Blood, Blood Streaked - Related Data Home oxygen amount: 4 liters Home Medications Medication Instructions Recorded Confirmed Albuterol Sulfate [Proair Hfa] 2 puff IH Q4H PRN 09/08/15 11/17/16 Budesonide/Formoterol 160/4.5 2 puff IH BID 09/08/15 11/17/16 [Symbicort 160/4.5] Finasteride [Proscar] 5 mg PO HS 09/08/15 11/17/16 Fluticasone Propionate Nasal 50 mcg NS DAILY 09/08/15 11/17/16 [Flonase] Amlodipine Besylate 10 mg PO DAILY 11/13/15 11/17/16 Guaifenesin [Mucinex] 600 mg PO BID 11/13/15 11/17/16 Montelukast [Singulair] 10 mg PO HS 11/13/15 11/17/16 Ranitidine HCl [Zantac] 150 mg PO BID 11/13/15 11/17/16 Benzonatate [Tessalon] 100 mg PO TID PRN 02/09/16 11/17/16 Furosemide [Lasix] 40 mg PO BID 02/09/16 11/17/16 Loratadine [Claritin] 10 mg PO DAILY 02/09/16 11/17/16 Nystatin [Nystatin Suspension] 15 ml PO BID 02/09/16 11/17/16 Potassium Chloride [K-Tab ER] 20 meq PO DAILY 02/09/16 11/17/16 Albuterol Neb [Proventil Neb] 2.5 mg IH QID 04/15/16 11/17/16 [place]-3/Dha/Epa/Fish Oil [Fish Oil 1,000 mg PO DAILY 04/15/16 11/17/16 1,000 mg Softgel] Oxygen 4 l NS CONT 04/15/16 11/17/16 metFORMIN [Glucophage] 500 mg PO BID 04/15/16 11/17/16 Gabapentin [Neurontin] 300 mg PO TID 11/17/16 11/17/16 Insulin DETEMIR [Levemir Flextouch] 5 unit SQ QAM 11/17/16 11/17/16 Insulin DETEMIR [Levemir Flextouch] 15 unit SQ QPM 11/17/16 11/17/16 Sennosides/Docusate Sodium [Senna 1 each PO DAILY 11/17/16 11/17/16 Plus] predniSONE [PredniSONE] 10 - 20 mg PO DAILY 11/17/16 11/17/16 Previous Rx's Medication Instructions Recorded Ipratropium/Albuterol Neb [Duoneb] 3 ml IH [id number] PRN #90 inhsol 06/30/16 Polyethylene Glycol 3350 [MiraLAX] 17 gm PO DAILY PRN #10 powd.pack 06/30/16 GuaiFENesin Liq [Robitussin Liq] 200 mg PO Q6HR PRN #200 ml 11/20/16 levoFLOXacin [Levaquin] 500 mg PO DAILY #7 tablet 11/20/16 predniSONE [PredniSONE] 10 mg PO DAILY #41 tablet 11/20/16 Allergies Allergy/AdvReac Type Severity Reaction Status Date / Time tobramycin Allergy Severe Difficulty Verified 11/21/16 14:40 Breathing All systems ED: reviewed and negative except as stated. Past Medical History - Past Medical History Medical history: Reports: arthritis, asthma, cancer, CHF, COPD, diabetes, GERD, hypertension, other Surgical history: Reports: appendectomy, cholecystectomy, herniorrhaphy, other Psychiatric history: Reports: no psych history - Social History Smoking Status: Former smoker Smokeless Tobacco Status: No Alcohol use: Reports: none Drug use: Reports: none Physical Exam - General Limitations: age General appearance: alert, in distress - Head Head exam: atraumatic, normocephalic - Neck Neck exam: Present: normal inspection - Chest Chest inspection: Present: normal inspection - Respiratory Respiratory exam: Present: wheezes, other (rales present ) - Cardiovascular Cardiovascular exam: Present: regular rate, normal rhythm, +S1, +S2 - Abdominal Exam Abdominal exam: Present: soft, Non-Tender, distention - Extremities Exam Extremities exam: Present: other (clubbing present. ) - Back Exam Back exam: Present: normal inspection - Neurological Exam Neurological exam: Present: alert, oriented X3 - Psychiatric Psychiatric exam: Present: anxious - Skin Skin exam: Present: warm, dry, intact Course Vital Signs Temperature 98.2 F 11/21/16 11:04 Pulse Rate 97 11/21/16 11:04 Respiratory Rate 22 11/21/16 11:04 Blood Pressure 157/74 11/21/16 11:04 O2 Sat by Pulse Oximetry 90 11/21/16 11:04 Temperature 98.2 F 11/21/16 11:04 Pulse Rate 70 11/21/16 13:57 Respiratory Rate 18 11/21/16 13:57 Blood Pressure 131/74 11/21/16 13:57 O2 Sat by Pulse Oximetry 92 11/21/16 13:57 Oxygen Delivery Oxygen Delivery Nasal Cannula Shortness of Breath/Dyspnea - [facility] Narrative Medical decision making narrative: patient had multiple tests done for workup. CBC and BMP were within normal limits. CTA did not show any evidence of pulmonary embolism. EKG did not show any signs of ischemia and no significant changes from prior EKGs. Patient's troponin was negatives, and his coags were within normal limits. Patient does have history of multiple co morbidities and lung disease. Furthermore, he has 40 pack per year smoking history and thus he will need to be admitted to further workup for hemoptysis. Spoke with court monitor hot air furnace installer and repairer Dr. Jensen, who has agreed to see patient as consult. Spoke to admitting Hospitalist Dr. Giron, who has agreed to admit the patient for further workup. He will be admitted to [facility]. - Medical Records Medical records reviewed: Yes I reviewed the patient's medical records. - Lab Data Lab results reviewed: Yes I reviewed the patient's lab results. Result diagrams: 11/21/16 11:33 11/21/16 11:33 Lab Results 11/21/16 11/21/16 11/21/16 Range/Units 11:33 11:33 11:33 WBC 7.7 (4.3-11.1) K/mcL RBC 5.03 (4.19-5.50) M/mcL Hgb 15.4 (12.9-16.9) g/dL Hct 45.2 (37.5-50.1) % MCV 89.9 (83.0-100.0) fL MCH 30.6 (28.0-33.3) pg MCHC 34.1 (31.6-35.5) g/dL RDW 13.8 (11.5-14.5) % Plt Count 162 (140-400) K/mcL MPV 10.6 (9.4-12.4) fL Immature Gran % 0.8 (0-4) % Seg Neutrophils % 84.8 % Lymphocytes % 7.8 % Monocytes % 6.6 % Eosinophils % 0.0 % Basophils % 0.0 % Neutrophils # 6.6 (1.6-8.9) K/mcL Lymphocytes # 0.6 (0.6-4.6) K/mcL Monocytes # 0.5 (0.0-1.3) K/mcL Eosinophils # 0.0 (0.0-0.6) K/mcL Basophils # 0.0 (0.0-0.2) K/mcL PT (9.4-12.1) Seconds INR Sodium 138 (136-145) mEq/L Potassium 4.3 (3.5-4.5) mEq/L Chloride 106 (98-109) mEq/L Carbon Dioxide 22 (19-29) mEq/L BUN 23 (8-26) mg/dL Creatinine 1.03 (0.72-1.25) mg/dL Est GFR ( Amer) > 60 (> 60) Est GFR (Non-Af Amer) > 60 (> 60) BUN/Creatinine Ratio 22 (6-26) Glucose 285 H (70-99) mg/dL Calculated Osmolality 300 (280-300) Calcium 9.0 (8.6-10.8) mg/dL Troponin I 0.00 (0-0.03) ng/mL 11/21/16 Range/Units 11:33 WBC (4.3-11.1) K/mcL RBC (4.19-5.50) M/mcL Hgb (12.9-16.9) g/dL Hct (37.5-50.1) % MCV (83.0-100.0) fL MCH (28.0-33.3) pg MCHC (31.6-35.5) g/dL RDW (11.5-14.5) % Plt Count (140-400) K/mcL MPV (9.4-12.4) fL Immature Gran % (0-4) % Seg Neutrophils % % Lymphocytes % % Monocytes % % Eosinophils % % Basophils % % Neutrophils # (1.6-8.9) K/mcL Lymphocytes # (0.6-4.6) K/mcL Monocytes # (0.0-1.3) K/mcL Eosinophils # (0.0-0.6) K/mcL Basophils # (0.0-0.2) K/mcL PT 11.0 (9.4-12.1) Seconds INR 1.0 Sodium (136-145) mEq/L Potassium (3.5-4.5) mEq/L Chloride (98-109) mEq/L Carbon Dioxide (19-29) mEq/L BUN (8-26) mg/dL Creatinine (0.72-1.25) mg/dL Est GFR ( Amer) (> 60) Est GFR (Non-Af Amer) (> 60) BUN/Creatinine Ratio (6-26) Glucose (70-99) mg/dL Calculated Osmolality (280-300) Calcium (8.6-10.8) mg/dL Troponin I (0-0.03) ng/mL - Radiology Data Radiology results reviewed: Yes I reviewed the patient's radiology results. - EKG Data EKG attestation: Yes I reviewed and interpreted this EKG. EKG results narrative: sinur rhythm ventricular rate 86, WI interval 184, QRS duration 114, QT/QTc 347/ 390, P-R-T axis 35 23 68 EKG shows normal: Reports: sinus rhythm Rate: Reports: normal Attestation Statement - Attestation Attestation: I examined this patient and my medical decision-making was reviewed with the QUALITY CONTROL REPRESENTATIVE/PA/Advanced Practice Nurse/Resident Physician. I agree with the documented findings, disposition and treatment plan as described except to the extent set forth below. I had [id number] time with patient. 76-year-old with a history of COPD who was just discharged yesterday of COPD exacerbation. Patient developed hemoptysis today has had 3-4 episodes of a fair amount of hemoptysis per the patient. He's had a persistent cough. Lungs were diminished. CTA of the chest was obtained. Consultation with pulmonology we will admit the patient to the hospitalist for further evaluation and treatment.
[2016-11-21] MEDS ORDERED: GuaiFENesin Liq 200 MG/10 ML UDC PO PRN (16:19)
[2016-11-21] MEDS ORDERED: Ondansetron 4 MG/2 ML VIAL IVP PRN (16:27)
[2016-11-21] MEDS ORDERED: *HR* Morphine 2 MG/ML SYRINGE IVP PRN (16:27)
[2016-11-21] MEDS ORDERED: *HR* HYDROcodone/Acet 5/325 mg TABLET PO PRN (16:27)
[2016-11-21] MEDS ORDERED: Acetaminophen 325 MG TABLET PO PRN (16:27)
[2016-11-21] MEDS ORDERED: Naloxone 0.4 MG/ML INJ IVP PRN (16:27)
--- NOTE | 2016-11-21 16:39 | Internal Med History&Physical ---
<Sam Mueller - Last Filed: 11/21/16 17:46> Date of Encounter: 11/21/16 Time of Encounter: 16:00 Assessment and Plan (1) Hemoptysis Current visit: Yes Status: Acute Assess: Patient presents with chief complaint of hemoptysis which began today. He reports two clots this morning were the size of dimes and were bright red blood. The third clot was the size of a tablespoon and was dark red blood. Patient reports he has never had this before. Patient has history of sputum cultures that have been positive for pseudomonas and haemophilus influenza II. Plan: Sputum culture ordered stat Urine legionella culture ordered Strep pneumoniae urine culture ordered IV Ceftriaxone 1,000 mg daily ordered (2) Hypoxia Current visit: Yes Status: Acute Assess: Patient presents with acute hypoxia related to current diagnosis of bronchitis and acute exacerbation of COPD. Patient reports that he is currently using 4L of O2 at home as well as DuoNebs and inhalers as needed. Plan: Supplemental O2 ordered with titration if SpO2 <92% Continuous SpO2 monitoring ordered DuoNebs ordered Q4 HR Continue patient's inhalers/Mucinex Monitor patient and vital signs Falls precautions/Bed rest with bedside commode/Rx-lufy-zujeii only status (3) Acute exacerbation of chronic obstructive pulmonary disease (COPD) Current visit: Yes Status: Acute Assess: Patient presents with acute exacerbation of COPD related to current diagnosis of bronchitis which is resulting in hypoxia. Plan: Supplemental O2 ordered with titration if SpO2 <92% Continuous SpO2 monitoring ordered DuoNebs ordered Q4 HR Continue patient's inhalers/Mucinex SoluMedrol 30 mg IVP daily ordered Monitor patient and vital signs Falls precautions/Bed rest with bedside commode/Cf-[id number]-jgtpoj only status (4) Bronchitis, acute, with bronchospasm Current visit: Yes Status: Acute Assess: Patient presents with diagnosis of bronchitis from admission to hospital on -11/20/16. Patient was placed on levaquin while inpatient and after discharge. Plan: IV ceftriaxone ordered 1,000 mg daily Supplemental O2 ordered with titration if SpO2 <92% Continuous SpO2 monitoring ordered DuoNebs ordered Q4 HR Continue patient's inhalers/Mucinex Monitor patient and vital signs Falls precautions/Bed rest with bedside commode/Jk-ejod-updbav only status (5) Constipation Current visit: Yes Status: Acute Assess: Patient presents with complaint of constipation. He reports that he has not had a BM since 11/17/16. He also reports this is becoming an ongoing problem for him. Plan: Continue patient's Miralax Consider adding higher dose of Miralax or another laxative if treatment unsuccessful Qualifiers: Constipation type: unspecified constipation type Qualified Code(s): K59.00 - Constipation, unspecified (6) GERD (gastroesophageal reflux disease) Current visit: Yes Status: Acute Assess: Patient presents with history of chronic gastroesophageal reflux disease. Patient is experiencing acute flareup during this admission. Plan: IVP Zofran ordered IV Protonix 40 mg daily ordered Qualifiers: Esophagitis presence: esophagitis presence not specified Qualified Code(s) : K21.9 - Gastro-esophageal reflux disease without esophagitis (7) CHF (congestive heart failure) Current visit: Yes Status: Chronic Assess: Patient presents with history of chronic congestive heart failure. Plan: Continuous cardiac telemetry ordered Hold IV fluids for now due to bilateral pedal edema Continue Lasix 40 mg BID - will consider increasing dose one time if treatment unsuccessful Monitor I&O Monitor daily weight Qualifiers: Congestive heart failure type: diastolic Congestive heart failure chronicity: chronic Qualified Code(s): I50.32 - Chronic diastolic (congestive ) heart failure (8) Diabetes Current visit: Yes Status: Chronic Assess: Patient presents with history of chronic diabetes managed with insulin. 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 Oncologic DVT prophylaxis contraindicated due to patient's current hemoptysis. Plan: SCDs ordered bilaterally for lower legs Internal Medicine - H&P: HPI Chief complaint: Hemoptysis/Hypoxia Admitted From: Emergency Dept Plans for Post Hospital Care: Home History of present illness: Mr. Madrid is a 76 year old male who presents from the ED with chief complaint of hemoptysis and hypoxia. Patient is a former smoker who reports he quit 40 years ago but smoked 2 packs per day for 20 years. Patient also states he had 3 episodes of hemoptysis this morning, the first 2 with clots the size of the time which were bright red blood in the third Sizer tablespoon with dark red blood. Patient was discharged from hospital yesterday with diagnosis of bronchitis and sent home on Levaquin. Patient is on home oxygen currently at 4 L and uses nebulizer 6 times per day plus Symbicort for COPD. Previous sputum cultures for the patient in the past have grown Pseudomonas and Haemophilus influenza II. Patient denies chest pain but does admit having a sore sensation in his chest to coughing. Patient had previous bronchoscopies in the past that were negative for acid-fast stain. Patient states he has never had hemoptysis before. Mr. Madrid reports she has a history of arthritis, asthma, cancer, CHF, COPD, emphysema, diabetes, GERD, hypertension, and asthma. Patient is at moderate risk due to her recent admission and current hemoptysis and hypoxia. Patient is replaced as observation status with orders for stat sputum culture, urine Legionella, urine strep pneumoniae, and IV ceftriaxone 1000 mg daily. Patient placed on continuous cardiac telemetry, supplement oxygen with titration , continuation of Solu-Medrol, and falls precautions/bedrest with bedside commode/up with assist status. CT scan of chest dated 11/21/16 shows no evidence of pulmonary embolism, bronchitis with bibasilar atelectasis, pulmonary emphysema, and cardiomegaly with probable pulmonary venous hypertension. Patient to be monitored closely. Past Med Surg Social Fam HX - Past Medical History Source: patient Medical history: arthritis, asthma, cancer, CHF, COPD, diabetes, GERD, hypertension, other Psychiatric history: no psych history - Past Surgical History Surgical History: appendectomy, cholecystectomy, herniorrhaphy, other - Social History Smoking Status: Former smoker Packs per day: 2 PPP - reports quitting 40 years ago Smokeless Tobacco Status: No Alcohol use: none Drug use: none Occupational status: retired Current living situation: Home, With Family Activity Level: Independent ambulation Recent Out of Country Travel Within the Last 8 Weeks: No Exposure or Possible Exposure to Illness During Travel: No - Family History Mother Living Status: Hx Family Endocrine Disorder: Yes (diabetes) Father Living Status: Hx Family Neurologic Disorders: Yes (stroke) Internal Medicine - H&P: Meds Albuterol Sulfate [Proair Hfa] 2 puff IH Q4H PRN 09/08/15 [History] Budesonide/Formoterol 160/4.5 [Symbicort 160/4.5] 2 puff IH BID 09/08/15 [ History] Finasteride [Proscar] 5 mg PO HS 09/08/15 [History] Fluticasone Propionate Nasal [Flonase] 50 mcg NS DAILY 09/08/15 [History] Amlodipine Besylate 10 mg PO DAILY 11/13/15 [History] Guaifenesin [Mucinex] 600 mg PO BID 11/13/15 [History] Montelukast [Singulair] 10 mg PO HS 11/13/15 [History] Ranitidine HCl [Zantac] 150 mg PO BID 11/13/15 [History] Benzonatate [Tessalon] 100 mg PO TID PRN 02/09/16 [History] Furosemide [Lasix] 40 mg PO BID 02/09/16 [History] Loratadine [Claritin] 10 mg PO DAILY 02/09/16 [History] Nystatin [Nystatin Suspension] 15 ml PO BID 02/09/16 [History] Potassium Chloride [K-Tab ER] 20 meq PO DAILY 02/09/16 [History] Albuterol Neb [Proventil Neb] 2.5 mg IH QID 04/15/16 [History] [place]-3/Dha/Epa/Fish Oil [Fish Oil 1,000 mg Softgel] 1,000 mg PO DAILY 04/15/16 [History] Oxygen 4 l NS CONT 04/15/16 [History] metFORMIN [Glucophage] 500 mg PO BID 04/15/16 [History] Ipratropium/Albuterol Neb [Duoneb] 3 ml IH [id number] PRN #90 inhsol 06/30/16 [Rx] Polyethylene Glycol 3350 [MiraLAX] 17 gm PO DAILY PRN #10 powd.pack 06/30/16 [Rx ] Gabapentin [Neurontin] 300 mg PO TID 11/17/16 [History] Insulin DETEMIR [Levemir Flextouch] 5 unit SQ QAM 11/17/16 [History] Insulin DETEMIR [Levemir Flextouch] 15 unit SQ QPM 11/17/16 [History] Sennosides/Docusate Sodium [Senna Plus] 1 each PO DAILY 11/17/16 [History] predniSONE [PredniSONE] 10 - 20 mg PO DAILY PRN 11/17/16 [History] GuaiFENesin Liq [Robitussin Liq] 200 mg PO Q6HR PRN #200 ml 11/20/16 [Rx] levoFLOXacin [Levaquin] 500 mg PO DAILY #7 tablet 11/20/16 [Rx] predniSONE [PredniSONE] 10 mg PO DAILY #41 tablet 11/20/16 [Rx] Allergies tobramycin Allergy (Severe, Verified 11/21/16 14:40) Difficulty Breathing All Systems PM: A 10-system review of systems was performed and is negative for pertinent findings except as documented above in the HPI. - Constitutional Constitutional: no chills, no fever(s), no night sweats - EENT Eyes: no change in vision, no discharge, no pain, no photophobia Ears: no ear discharge, no ear pain, no tinnitus Nose, mouth and throat: no dysphagia, no nasal discharge, no neck pain, no sore throat - Breasts Breasts: as per HPI - Cardiovascular Cardiovascular ROS IM: as per HPI, dyspnea, dyspnea on exertion, no chest pain, no diaphoresis, no lightheadedness, no palpitations, no syncope - Respiratory Respiratory: as per HPI, cough, dyspnea, hemoptysis, dyspnea on exertion, wheezing, chest congestion, pain with cough - Gastrointestinal Gastrointestinal: no abdominal pain, no diarrhea, no hematemesis, no hematochezia, no melena, no nausea, no vomiting - Genitourinary Genitourinary ROS male: as per HPI - Musculoskeletal Musculoskeletal ROS IM: no numbness, no tingling - Integumentary Integumentary IM: no rash, no unusual bruising - Neurological Neurological ROS: no confusion, no convulsions, no focal weakness, no numbness, no tingling, no tremor(s) - Psychiatric Psychiatric: as per HPI - Endocrine Endocrine IM: as per HPI - Hematologic/Lymphatic Hematologic/Lymphatic: as per HPI, other (Hemoptysis x3 (first two clots where size of a dime and bright red, last clot was tablespoon size and dark red)), no easy bruising - Allergic/Immunologic Allergic/Immunologic: as per HPI - Constitutional Vitals: Temp Pulse Resp BP Pulse Ox 98.2 F 80 19 147/83 91 11/21/16 11:04 11/21/16 16:09 11/21/16 15:31 11/21/16 16:09 11/21/16 16:09 General appearance: Present: cooperative, A&O X 3, pleasant, obese, severe distress (SpO2 dips to 89% with coughing spells and slowly climbs to 92% on 4L) , answers questions appropriately - Head Head exam: Present: atraumatic, normocephalic - Eye Eye exam: Present: PERRL, conjuntiva pink, sclera anicteric Pupils: Present: PERRL - ENT ENT exam: Present: normal exam, normal external ear exam - Neck Neck exam general surgery: Present: supple, trachea midline. Absent: lymphadenopathy - Respiratory Respiratory exam: Present: decreased breath sounds, respiratory distress, wheezes (Inspiratory and expiratory wheezes in all lobes bilaterally) - Cardiovascular Cardiovascular exam: Present: RRR, +S1, +S2. Absent: diastolic murmur, gallop, rubs, systolic murmur - GI/Abdominal GI/Abdominal exam: Present: normal bowel sounds, soft, no peritoneal signs. Absent: distended, tenderness - Rectal Rectal exam: Present: deferred - Additional comments: exam deferred. - Extremities Exam Extremities exam: Present: pedal edema, tenderness, warm, radial pulses palpable and symetrical - Back Exam Back exam: Present: normal inspection - Neurological Exam Neurological exam: Present: CN II-XII intact, oriented X3, no focal deficits. Absent: pronater drift, facial droop, speech deficit - Psychiatric Psychiatric exam: Present: normal affect, normal mood - Skin Skin exam: Present: dry, intact Internal Med - H&P Results - Labs CBC & Chem 7: 11/21/16 11:33 11/21/16 11:33 - EKG Data EKG shows normal: sinus rhythm - EKG Data Prior EKG available for review: yes When compared to previous EKG: there is no significant change EKG comments: 11/21/16 16:44 EKG dated 11/20/16 shows sinus rhythm with first degree AV block, possible inferior myocardial infarction, probably old. EKG dated 11/21/16 shows sinus rhythm with moderate intraventricular conduction delay [110+ ms QRS duration], nonspecific T-wave abnormality. - Diagnostic Studies CT scan - chest Additional comments: Impressions Chest CTA 11/21/16 11:26 IMPRESSION: 1. No evidence of pulmonary embolism 2. Bronchitis with bibasilar atelectasis 3. Pulmonary emphysema 4. Cardiomegaly with probable pulmonary venous hypertension D/ / Tomas Mcknight MD / Tomas Mcknight MD Interpreting Provider: Tomas Mcknight MD <Malaika Phan E - Last Filed: 11/22/16 08:53> Date of Encounter: 11/22/16 Internal Medicine - H&P: HPI History of present illness: Mr. Madrid is a 76 year old male All Systems PM: A 10-system review of systems was performed and is negative for pertinent findings except as documented above in the HPI. - Constitutional Vitals: Temp Pulse Resp BP Pulse Ox 97.5 F L 68 18 134/86 97 11/22/16 07:27 11/22/16 07:27 11/22/16 07:27 11/22/16 07:27 11/22/16 07:27 Internal Med - H&P Results - Labs CBC & Chem 7: 11/22/16 04:55 11/22/16 04:55 Labs: Short CBC 11/22/16 Range/Units 04:55 WBC 7.5 (4.3-11.1) K/mcL Hgb 15.3 (12.9-16.9) g/dL Hct 45.6 (37.5-50.1) % Plt Count 167 (140-400) K/mcL Neutrophils # 4.8 (1.6-8.9) K/mcL BMP 11/22/16 04:55 Sodium 140 Potassium 3.9 Chloride 107 Carbon Dioxide 26 BUN 19 Creatinine 0.86 Glucose 100 H Calcium 8.8 Liver Function 11/22/16 Range/Units 04:55 Total Bilirubin 0.6 (0.2-1.2) mg/dL AST 23 (5-34) Units/L ALT 32 (0-55) Units/L Alkaline Phosphatase 62 (38-126) Units/L Albumin 3.3 L (3.5-5.0) g/dL - Attending Attestation This is a late entry for a patient I examined and reviewed laboratory, imaging and all diagnostic data on 11/21/16. My medical decision-making was reviewed with Sam Mueller - CAMPBELL. I agree with the documented findings, disposition and treatment plan as described above. History and exam by me shows: hemoptysis. crackles in bases and diffuse wheezes. LE edema. CT chest shows emphysema, bronchitis, pulmonary venous hypertension. Started on IV solumedrol, nebs, empiric antibiotics. pulmonary consulted.
--- NOTE | 2016-11-21 17:00 | Pulmonology Consult Note ---
Date of Encounter: 11/21/16 Time of Encounter: 17:51 Assessment and Plan (1) Acute exacerbation of chronic obstructive pulmonary disease (COPD) Current Visit: Yes Status: Acute Recommend scheduling duo nebs every 6 hours. In addition patient can receive albuterol breathing treatments every 2-3 hours as needed. Recommend IV Solu-Medrol 60 mg 3 times a day Antimicrobials as discussed under bronchiectasis (2) Chronic respiratory failure Current Visit: No Status: Chronic Wean FiO2 to keep saturations around 89-92% continue bronchopulmonary toileting including incentive spirometry out of bed to chair Qualifiers: Respiratory failure complication: hypoxia Qualified Code(s): J96.11 - Chronic respiratory failure with hypoxia (3) Bronchiectasis Current Visit: No Status: Acute Acute on chronic flare likely secondary to infection no clear evidence of pneumonia history of Pseudomonas and MRSA infections in the past when empirically cover with vancomycin and cefepime pending further studies send sputum culture at this time. Avoid N-acetylcysteine okay for mucolytics for severity of cough recommend codeine cough syrup and continue Tessalon Perles. Would Qualifiers: Bronchiectasis type: with acute exacerbation Qualified Code(s): J47.1 - Bronchiectasis with (acute) exacerbation (4) Mild diastolic dysfunction Current Visit: No Status: Acute Recommend IV diuretic as patient appears modestly volume overloaded could start with IV Lasix 40 mg plan for net -500-1000mL (5) Hemoptysis Current Visit: Yes Status: Acute Minor hemoptysis in the setting of acute exacerbation of bronchiectasis. Will keep nothing by mouth at midnight for consideration of bronchoscopy tomorrow. Please quantify amount if any of hemoptysis overnight with bedside basin Mechanical DVT prophylaxis at present given bleeding risk Case was discussed with attending hospitalist Dr. Recio History of Present Illness Consult date: 11/21/16 Requesting physician: Claribel Watson Reason for consult: COPD Chief complaint: Hemoptysis History of present illness: This is a 76-year-old woman with a history of severe COPD complicated by bronchiectasis chronic respiratory failure on 4 L oxygen supplementation all time heart failure preserved ejection fraction who presented with a one-day history of hemoptysis. Virtually Mr. Madrid has frequent exacerbations of COPD/ bronchiectasis and has a history of Pseudomonas and MRSA factored in infections in the past had been recently admitted for about a 48 hour monitoring with administration of Levaquin and steroids some improvement in symptoms however he did not fill it they had resolved completely he was discharged from the hospital and went home. Today he noticed worsening coughing paroxysms into the point that he felt dizzy. He had 3 episodes of small bright red hemoptysis earlier in the day however his had no further episodes of hemoptysis since presentation to the emergency department earlier today. A CT edge exam was performed in the ED which is negative for acute filling defect and did not show any evidence of significant pneumonia At present he says he has not had any fevers or chills continues to have cough that is purulent in nature has underlying shortness of breath is worsened baseline but saturating well and on baseline oxygen requirement Past Med Surg Social Fam HX - Past Medical History Medical history: arthritis, asthma, cancer, CHF, COPD, diabetes, GERD, hypertension, other Psychiatric history: no psych history - Past Surgical History Surgical History: appendectomy, cholecystectomy, herniorrhaphy, other - Social History Smoking Status: Former smoker Packs per day: 2 PPP - reports quitting 40 years ago Smokeless Tobacco Status: No Alcohol use: none Drug use: none - Family History Mother Living Status: Hx Family Endocrine Disorder: Yes (diabetes) Father Living Status: Hx Family Neurologic Disorders: Yes (stroke) Medications and Allergies Albuterol Sulfate [Proair Hfa] 2 puff IH Q4H PRN 09/08/15 [History] Budesonide/Formoterol 160/4.5 [Symbicort 160/4.5] 2 puff IH BID 09/08/15 [ History] Finasteride [Proscar] 5 mg PO HS 09/08/15 [History] Fluticasone Propionate Nasal [Flonase] 50 mcg NS DAILY 09/08/15 [History] Amlodipine Besylate 10 mg PO DAILY 11/13/15 [History] Guaifenesin [Mucinex] 600 mg PO BID 11/13/15 [History] Montelukast [Singulair] 10 mg PO HS 11/13/15 [History] Ranitidine HCl [Zantac] 150 mg PO BID 11/13/15 [History] Benzonatate [Tessalon] 100 mg PO TID PRN 02/09/16 [History] Furosemide [Lasix] 40 mg PO BID 02/09/16 [History] Loratadine [Claritin] 10 mg PO DAILY 02/09/16 [History] Nystatin [Nystatin Suspension] 15 ml PO BID 02/09/16 [History] Potassium Chloride [K-Tab ER] 20 meq PO DAILY 02/09/16 [History] Albuterol Neb [Proventil Neb] 2.5 mg IH QID 04/15/16 [History] [place]-3/Dha/Epa/Fish Oil [Fish Oil 1,000 mg Softgel] 1,000 mg PO DAILY 04/15/16 [History] Oxygen 4 l NS CONT 04/15/16 [History] metFORMIN [Glucophage] 500 mg PO BID 04/15/16 [History] Ipratropium/Albuterol Neb [Duoneb] 3 ml IH [id number] PRN #90 inhsol 06/30/16 [Rx] Polyethylene Glycol 3350 [MiraLAX] 17 gm PO DAILY PRN #10 powd.pack 06/30/16 [Rx ] Gabapentin [Neurontin] 300 mg PO TID 11/17/16 [History] Insulin DETEMIR [Levemir Flextouch] 5 unit SQ QAM 11/17/16 [History] Insulin DETEMIR [Levemir Flextouch] 15 unit SQ QPM 11/17/16 [History] Sennosides/Docusate Sodium [Senna Plus] 1 each PO DAILY 11/17/16 [History] predniSONE [PredniSONE] 10 - 20 mg PO DAILY PRN 11/17/16 [History] GuaiFENesin Liq [Robitussin Liq] 200 mg PO Q6HR PRN #200 ml 11/20/16 [Rx] levoFLOXacin [Levaquin] 500 mg PO DAILY #7 tablet 11/20/16 [Rx] predniSONE [PredniSONE] 10 mg PO DAILY #41 tablet 11/20/16 [Rx] Allergies tobramycin Allergy (Severe, Verified 11/21/16 14:40) Difficulty Breathing All Systems: A 10-system review of systems was performed and is negative for pertinent findings except as documented above in the HPI. Physical Examination Vital Signs: Vital Signs, Last 4 Hours Pulse Resp BP Pulse Ox 11/21/16 16:09 80 147/83 91 11/21/16 15:31 19 136/80 General appearance: no acute distress, other (Coughing bruxism was noted) Eyes: nonicteric ENT: oropharynx moist Neck: supple Effort: mildly labored Auscultation: bilateral: diminished breath sounds, wheezes, rhonchi (Scattered bilateral) Cardiovascular: regular rate and rhythm Gastrointestinal: normoactive bowel sounds Extremities: edema (Trace bilateral lower extremity edema), other (Positive for clubbing in both upper and lower nailbeds) normal mental status, non-focal exam, CN II-XII normal mood appropriate Results - Laboratory Findings CBC and BMP: 11/21/16 11:33 11/21/16 11:33 PT/INR, D-dimer PT 11.0 Seconds (9.4-12.1) 11/21/16 11:33 Abnormal lab findings: Abnormal lab results Glucose 285 mg/dL (70-99) H 11/21/16 11:33 - Diagnostic Findings Chest x-ray: report reviewed, image reviewed CT scan - chest: report reviewed, image reviewed Consult Discharge Plan - Plan Referrals: Sheela Klein MD [Primary Care Provider] -
[2016-11-21] MEDS: GuaiFENesin/Codeine Oral Soln 5 ML UDC PO PRN (17:17)
[2016-11-21] MEDS ORDERED: Dextrose Gel 15 GM PO PRN ×2 (17:44)
[2016-11-21] MEDS ORDERED: D5% in Water 1,000 ML IVC PRN (17:44)
[2016-11-21] MEDS ORDERED: *HR* Dextrose 50 % in Water (Syg) 50 ML SYRINGE IVP PRN (17:44)
[2016-11-21] MEDS: Insulin DETEMIR 100 UNIT/ML X5UNITS SQ SCH (18:02)
[2016-11-21] MEDS: Budesonide/Formoterol 160/4.5 MDI IH SCH (20:06)
[2016-11-21] MEDS: Furosemide 40 MG TABLET PO SCH (21:55)
[2016-11-21] MEDS: Nystatin SUSP 5 ML UD.LIQ PO SCH (21:55)
[2016-11-21] MEDS: Gabapentin 300 MG CAPSULE PO SCH (21:55)
[2016-11-21] MEDS: Famotidine 20 MG TABLET PO SCH (21:55)
[2016-11-21] MEDS: Finasteride 5 MG TABLET PO SCH (21:55)
[2016-11-21] MEDS: Benzonatate 100 MG CAPSULE PO PRN (22:08)
[2016-11-22] MEDS: GuaiFENesin/Codeine Oral Soln 5 ML UDC PO PRN ×2 (00:16→22:31)
[2016-11-22 05:05] LABS: Basophils % 0.3 %; Eosinophils # 0.1 K/mcL (0.0-0.6); Eosinophils % 1.5 %; Hematocrit 45.6 % (37.5-50.1); Hemoglobin 15.3 g/dL (12.9-16.9); Immature Granulocytes % 1.2 % (0-4); Lymphocytes # 1.8 K/mcL (0.6-4.6); Mean Corpuscular HGB Conc 33.6 g/dL (31.6-35.5); Mean Corpuscular Hemoglobin 30.2 pg (28.0-33.3); Mean Corpuscular Volume 90.1 fL (83.0-100.0); Mean Platelet Volume 10.5 fL (9.4-12.4); Monocytes # 0.7 K/mcL (0.0-1.3); Monocytes % 9.8 %; Neutrophils # 4.8 K/mcL (1.6-8.9); Platelet Count 167 K/mcL (140-400); Red Blood Count 5.06 M/mcL (4.19-5.50); Red Cell Distribution Width 13.6 % (11.5-14.5); Segmented Neutrophils % 63.2 %
[2016-11-22 05:20] LABS: Alanine Aminotransferase 32 Units/L (0-55); Albumin 3.3 g/dL (3.5-5.0); Albumin/Globulin Ratio 1.4 (1.1-2.2); Alkaline Phosphatase 62 Units/L (38-126); Aspartate Amino Transferase 23 Units/L (5-34); BUN/Creatinine Ratio 22 (6-26); Bilirubin,Total 0.6 mg/dL (0.2-1.2); Blood Urea Nitrogen 19 mg/dL (8-26); Calcium 8.8 mg/dL (8.6-10.8); Carbon Dioxide 26 mEq/L (19-29); Chloride 107 mEq/L (98-109); Chol/HDL Ratio 3.5 (0-4.9); Cholesterol 128 mg/dL (< 200); Globulin 2.3 g/dL (2.4-3.5); Glucose 100 mg/dL (70-99); HDL Cholesterol 37 mg/dL (40-59); LDL Cholesterol,Calculated 57 mg/dL (0-99); Magnesium 2.2 mg/dL (1.6-2.6); Osmolality,Calculated 292 (280-300); Phosphorous 2.7 mg/dL (2.3-4.7); Potassium 3.9 mEq/L (3.5-4.5); Sodium 140 mEq/L (136-145); Total Protein 5.6 g/dL (6.0-8.3); Triglycerides 172 mg/dL (< 150); eGFR For African Americans > 60 (> 60); eGFR For Non-African Americans > 60 (> 60)
[2016-11-22] MEDS: Ipratropium/Albuterol Neb 3 ML IH PRN ×3 (05:39→21:56)
[2016-11-22] MEDS ORDERED: Tetracaine/Benzocaine/Butamben 200MG/SPRAY (100SPY/BOT) MM ONE (07:41)
[2016-11-22] MEDS ORDERED: *HR* EPINEPHrine 1 MG/10 ML SYRINGE INTRATRACH PRN (07:41)
[2016-11-22] MEDS ORDERED: *HR* Midazolam HCl 5 MG/5 ML VIAL IVP PRN (07:41)
--- NOTE | 2016-11-22 07:41 | Pre-Sedation Evaluation ---
Pre-sedation evaluation - Pre-sedation checklist Date of procedure: 11/22/16 Procedure: bronchoscopy Recent Vitals: Last Vital Signs Temp 97.5 F L 11/22/16 07:27 Pulse 68 11/22/16 07:27 Resp 18 11/22/16 07:27 BP 134/86 11/22/16 07:27 Pulse Ox 97 11/22/16 07:27 H&P (including ROS) documented in medical record: Yes Previous reaction to sedatives/anesthetics: No Dietary Status: NPO after Midnight Airway Assessment: Patient can open mouth completely, TMJ function normal Dentition: dentures removed Possible difficult airway: No ASA Classification *see protocol: CLASS IV-Severe systemic disease/constant threat to pt's life Plan of Care: Pt appropriate candidate for procedure/moderate/conscious sedation , Risks/benefits of procedure/sedation discussed w/ patient/family
[2016-11-22] MEDS ORDERED: 0.9 % Sodium Chloride 1,000 ML IVC SCH (07:45)
[2016-11-22] MEDS ORDERED: *HR* FentaNYL (PF) 100 MCG/2 ML VIAL ONE (09:30)
[2016-11-22] MEDS ORDERED: *HR* Midazolam HCl 5 MG/5 ML VIAL IVP ONE (09:30)
[2016-11-22] MEDS: *HR* FentaNYL (PF) 100 MCG/2 ML VIAL IVP PRN ×2 (10:19→10:22)
[2016-11-22] MEDS ORDERED: Albuterol 2.5 MG/3 ML NEBULIZER ONE (10:20)
[2016-11-22] MEDS ORDERED: Albuterol 2.5 MG/3 ML NEBULIZER IH ONE (10:34)
--- NOTE | 2016-11-22 10:57 | Pulmonology Progress Note ---
Date of Encounter: 11/22/16 Time of Encounter: 10:50 Assessment and Plan (1) Acute exacerbation of chronic obstructive pulmonary disease (COPD) Current Visit: Yes Status: Acute 76-year-old gentleman with a long-standing history of advanced COPD chronic respiratory failure bronchiectasis with frequent infections. His presenting with increased shortness of breath cough with very minor hemoptysis. Underwent bronchoscopy today which was notable for thick mucopurulent secretions throughout the right upper and right middle lung. Unfortunately bronchoscopy was complicated by significant desaturation with minimal scopes time so the entire tracheobronchial tree was not examined however refill cough and in the areas it seen given the friable underlying mucosa and evidence of acute on chronic bronchitis with thick purulent secretions at this is likely the cause of his hemoptysis given that his CT scan is otherwise clear and that hemoptysis is essentially resolved at this point. Was able to perform BAL and that will be analyzed for culture/cytology. In interim I recommend treating patient for oral thrush which was identified on bronchoscopy, continuation of broad-spectrum antimicrobials, aggressive bronchopulmonary toileting including suctioning incentive spirometry, airway clearance with AcaPella and bronchodilators. In addition ambulation and deep breaths can also help airway clearance. Also started the patient on some N- acetylcysteine for the thickness of his secretions which were marked. I also agree with symptomatic treatment of cough including codeine cough syrup and Tessalon Perles. Generally speaking patient would be a good candidate for inhalation antimicrobials he has been tried on tobramycin in the past but it had a bronchospastic response. Based upon culture findings would consider consultation with infectious disease for possibility of additional inhaled agent such as aztreonam if this turns out to be recurrent pseudomonal infection Would continue IV steroids at present can likely de-escalate to enteral formulations tomorrow Recommend starting chemical DVT prophylaxis today given resolution of hemoptysis Pulmonary we will continue to follow (2) Chronic respiratory failure Current Visit: No Status: Chronic Qualifiers: Respiratory failure complication: hypoxia Qualified Code(s): J96.11 - Chronic respiratory failure with hypoxia (3) Bronchiectasis Current Visit: No Status: Acute Qualifiers: Bronchiectasis type: with acute exacerbation Qualified Code(s): J47.1 - Bronchiectasis with (acute) exacerbation (4) Mild diastolic dysfunction Current Visit: No Status: Acute (5) Hemoptysis Current Visit: Yes Status: Acute Subjective Principal diagnosis: Hemoptysis Interval history: No further episodes of hemoptysis since he has been in the hospital. He says cough to some degree has improved but still having coughing paroxysmal symptoms has not been able to generate very much sputum however. Objective PUL Vital signs: Last Vital Signs Temp 97.5 F L 11/22/16 07:27 Pulse 67 11/22/16 10:29 Resp 18 11/22/16 10:29 BP 123/65 11/22/16 10:29 Pulse Ox 88 11/22/16 10:29 General appearance: no acute distress ENT: oropharynx moist Auscultation: bilateral: diminished breath sounds, rhonchi Cardiovascular: regular rate and rhythm Gastrointestinal: normoactive bowel sounds Extremities: edema normal mental status, non-focal exam mood appropriate Results - Laboratory Findings CBC and BMP: 11/22/16 04:55 11/22/16 04:55 PT/INR, D-dimer PT 11.0 Seconds (9.4-12.1) 11/21/16 11:33 Abnormal lab findings: Abnormal lab results Glucose 100 mg/dL (70-99) H 11/22/16 04:55 Serum Total Protein 5.6 g/dL (6.0-8.3) L 11/22/16 04:55 Albumin 3.3 g/dL (3.5-5.0) L 11/22/16 04:55 Globulin 2.3 g/dL (2.4-3.5) L 11/22/16 04:55 Triglycerides 172 mg/dL (< 150) H 11/22/16 04:55 VLDL Cholesterol, Calc 34 mg/dL (< 31) H 11/22/16 04:55 HDL Cholesterol 37 mg/dL (40-59) L 11/22/16 04:55 - Microbiology Findings Microbiology Findings: Microbiology, Last 48 Hours 11/21/16 22:17 Sputum Culture - Final Sputum 11/21/16 22:15 Legionella Antigen - Final Urine,Clean Catch Streptococcus pneumoniae Antigen (M - Final - Clinical Findings Intake & Output: Intake & Output 11/21/16 11/22/16 11/22/16 23:59 07:59 15:59 Intake Total 1460 / 1460 600 / 600 150 / 150 Output Total 0 / 0 350 / 350 Balance 1460 / 1460 250 / 250 150 / 150 Weight 109.9 kg 109.5 kg Consult Discharge Plan - Plan Referrals: Sheela Klein MD [Primary Care Provider] -
[2016-11-22] MEDS: Acetylcysteine 10% 2 ML INHSOL IH SCH ×3 (11:26→22:00)
[2016-11-22] MEDS: Budesonide/Formoterol 160/4.5 MDI IH SCH ×2 (11:28→21:56)
[2016-11-22 14:59] LABS: Appearance of Body Fluid Slightly Hazy (Clear); Volume of Body Fluid 15 mL
[2016-11-22] MEDS: Insulin DETEMIR 100 UNIT/ML X5UNITS SQ SCH ×2 (15:57→17:49)
[2016-11-22] MEDS: Furosemide 40 MG TABLET PO SCH ×2 (16:04→22:25)
[2016-11-22] MEDS: Famotidine 20 MG TABLET PO SCH ×2 (16:04→22:25)
[2016-11-22] MEDS: amLODIPine 5 MG TABLET PO SCH (16:05)
[2016-11-22] MEDS: Nystatin SUSP 5 ML UD.LIQ PO SCH ×2 (16:05→22:26)
[2016-11-22] MEDS: Loratadine 10 MG TABLET PO SCH (16:05)
[2016-11-22] MEDS: Gabapentin 300 MG CAPSULE PO SCH ×3 (16:08→22:25)
[2016-11-22] MEDS: (Omega-3/Dha/Epa/Fish Oil [Fish Oil 1,000 Mg Softgel]) PO SCH (16:08)
[2016-11-22] MEDS: MethylPREDNISolone 40 MG/ML VIAL IVP SCH (16:09)
[2016-11-22] MEDS: Pantoprazole 40 MG VIAL IVP SCH (16:09)
[2016-11-22] MEDS: Fluticasone Propionate Nasal 50 MCG/SPRAY BOTTLE NS SCH (17:49)
--- NOTE | 2016-11-22 19:33 | Internal Med Progress Note ---
Date of Encounter: 11/22/16 Time of Encounter: 12:30 - Assessment and plan (1) Bronchiectasis with (acute) exacerbation Current Visit: Yes Status: Acute Assessment and plan: Had bronch today. Currently on IV abx , aerosols, steroids and supportive care. (2) Acute and chronic respiratory failure with hypoxia Current Visit: Yes Status: Acute Assessment and plan: Currently on oxygen supplementation. Wean as able (3) GERD (gastroesophageal reflux disease) Current Visit: Yes Status: Chronic Assessment and plan: Supportive care. Qualifiers: Esophagitis presence: esophagitis presence not specified Qualified Code(s) : K21.9 - Gastro-esophageal reflux disease without esophagitis (4) Diabetes Current Visit: Yes Status: Chronic Assessment and plan: Monitoring and covering as needed. Qualifiers: Diabetes mellitus type: type 2 Diabetes mellitus complication status: with hyperglycemia Diabetes mellitus residential insulin use: without manager intermediate use Qualified Code(s): E11.65 - Type 2 diabetes mellitus with hyperglycemia (5) Obesity Current Visit: No Status: Chronic Assessment and plan: Chronic condition Qualifiers: Obesity type: unspecified obesity type Obesity severity: unspecified obesity severity Qualified Code(s): E66.9 - Obesity, unspecified - Subjective Interval history: Mr Madrid is currently admitted for acute exac bronchiectasis. He is moderate to high risk due to potential for worsening respiratory status. - Constitutional Vitals: Temp Pulse Resp BP Pulse Ox 97.8 F 67 16 136/79 96 11/22/16 14:50 11/22/16 14:50 11/22/16 16:58 11/22/16 14:50 11/22/16 16:58 General appearance: Present: cooperative, A&O X 3, pleasant, obese, answers questions appropriately - Head Head exam: Present: normocephalic - Eye Eye exam: Present: EOMI, conjuntiva pink - ENT ENT exam: Present: mucous membranes moist - Respiratory Respiratory exam: Present: rhonchi, wheezes - Cardiovascular Cardiovascular exam: Present: distant heart sounds, RRR - GI/Abdominal GI/Abdominal exam: Present: soft. Absent: mass, tenderness - Extremities Exam Extremities exam: Present: warm. Absent: tenderness - Neurological Exam Neurological exam: Present: alert, oriented X3 - Psychiatric Psychiatric exam: Present: normal affect, normal mood Internal Medicine: Result - Labs CBC & Chem 7: 11/22/16 04:55 06/10/17 04:55 Labs: Short CBC 11/22/16 Range/Units 04:55 WBC 7.5 (4.3-11.1) K/mcL Hgb 15.3 (12.9-16.9) g/dL Hct 45.6 (37.5-50.1) % Plt Count 167 (140-400) K/mcL Neutrophils # 4.8 (1.6-8.9) K/mcL BMP 11/22/16 04:55 Sodium 140 Potassium 3.9 Chloride 107 Carbon Dioxide 26 BUN 19 Creatinine 0.86 Glucose 100 H Calcium 8.8 Liver Function 11/22/16 Range/Units 04:55 Total Bilirubin 0.6 (0.2-1.2) mg/dL AST 23 (5-34) Units/L ALT 32 (0-55) Units/L Alkaline Phosphatase 62 (38-126) Units/L Albumin 3.3 L (3.5-5.0) g/dL - ABG Interpretation ABG results: PT/INR, D-dimer PT 11.0 Seconds (9.4-12.1) 11/21/16 11:33 Consult Discharge Plan - Plan Referrals: Sheela Klein MD [Primary Care Provider] -
[2016-11-22] MEDS: Finasteride 5 MG TABLET PO SCH (22:25)
[2016-11-22] MEDS ORDERED: Dextrose Gel 15 GM PO PRN ×2 (22:51)
[2016-11-22] MEDS ORDERED: *HR* Dextrose 50 % in Water (Syg) 50 ML SYRINGE IVP PRN (22:51)
[2016-11-22] MEDS ORDERED: D5% in Water 1,000 ML IVC PRN (22:51)
[2016-11-23] MEDS: Insulin LISPRO 300 UNITS/3 ML VIAL SQ SCH ×5 (00:06→21:48)
[2016-11-23] MEDS: Ipratropium/Albuterol Neb 3 ML IH PRN ×3 (07:43→23:03)
[2016-11-23] MEDS: Budesonide/Formoterol 160/4.5 MDI IH SCH ×2 (07:43→23:03)
[2016-11-23] MEDS: Acetylcysteine 10% 2 ML INHSOL IH SCH ×3 (07:43→23:03)
--- NOTE | 2016-11-23 08:12 | Pulmonology Progress Note ---
Date of Encounter: 11/23/16 Time of Encounter: 08:08 Assessment and Plan (1) Acute exacerbation of chronic obstructive pulmonary disease (COPD) Current Visit: Yes Status: Acute 76-year-old gentleman with a long-standing history of advanced COPD chronic respiratory failure bronchiectasis with frequent infections. His presenting with increased shortness of breath cough with very minor hemoptysis. Underwent bronchoscopy today which was notable for thick mucopurulent secretions throughout the right upper and right middle lung. Procedural hypoxia limited full procedure completion. Encouragingly hemoptysis is resolved and likely later to underlying bronchiectasis with acute bronchitis Continue aggressive bronchopulmonary toileting including Acapella for airway clearance and sinus spirometry out of bed to chair and ambulation as tolerated. Continue to wean FiO2 to keep oxygen saturations greater than 88% to around 92 % Agree with broad-spectrum antimicrobials pending cultures Continue scheduled bronchodilators and N-acetylcysteine Generally advise slightly net negative volume status given underlying diastolic dysfunction Based upon cultures could be considered for infectious disease consult for alternative inhaled antimicrobial such as aztreonam if cultures positive for Pseudomonas Continue chemical DVT prophylaxis Dr. Galan will assume the pulmonary consult service starting tomorrow and is well informed on patient's history and current state from following in clinic. (2) Chronic respiratory failure Current Visit: No Status: Chronic Qualifiers: Respiratory failure complication: hypoxia Qualified Code(s): J96.11 - Chronic respiratory failure with hypoxia (3) Bronchiectasis Current Visit: No Status: Acute Qualifiers: Bronchiectasis type: with acute exacerbation Qualified Code(s): J47.1 - Bronchiectasis with (acute) exacerbation (4) Mild diastolic dysfunction Current Visit: No Status: Acute (5) Hemoptysis Current Visit: Yes Status: Acute Subjective Principal diagnosis: Hemoptysis Interval history: Status post bronchial complicated by hypoxia which limited completion of procedure. However notable for thick copious purulent secretions. He reports he was able to cough up a lot of more phlegm yesterday after the procedure and generally feels a bit better today. Cultures as far are negative . Objective PUL Vital signs: Last Vital Signs Temp 98.0 F 11/23/16 07:10 Pulse 74 11/23/16 07:10 Resp 18 11/23/16 07:45 BP 149/93 11/23/16 07:10 Pulse Ox 98 11/23/16 07:45 General appearance: no acute distress ENT: oropharynx moist Auscultation: bilateral: diminished breath sounds, rhonchi Cardiovascular: regular rate and rhythm Gastrointestinal: normoactive bowel sounds Extremities: edema Results - Laboratory Findings CBC and BMP: 11/22/16 04:55 11/22/16 04:55 PT/INR, D-dimer PT 11.0 Seconds (9.4-12.1) 11/21/16 11:33 Abnormal lab findings: Abnormal lab results Glucose 100 mg/dL (70-99) H 11/22/16 04:55 POC Glucose 350 (58-89) H 11/22/16 20:28 Serum Total Protein 5.6 g/dL (6.0-8.3) L 11/22/16 04:55 Albumin 3.3 g/dL (3.5-5.0) L 11/22/16 04:55 Globulin 2.3 g/dL (2.4-3.5) L 11/22/16 04:55 Triglycerides 172 mg/dL (< 150) H 11/22/16 04:55 VLDL Cholesterol, Calc 34 mg/dL (< 31) H 11/22/16 04:55 HDL Cholesterol 37 mg/dL (40-59) L 11/22/16 04:55 Fluid Appearance Slightly Hazy (Clear) A 11/22/16 10:53 - Microbiology Findings Microbiology Findings: Microbiology, Last 48 Hours 11/22/16 10:53 Respiratory Culture - Preliminary Right Middle Lobe Lung Normal upper respiratory tract rogerio. No apparent pathogens isolated. 11/21/16 22:17 Sputum Culture - Final Sputum 11/21/16 22:15 Legionella Antigen - Final Urine,Clean Catch Streptococcus pneumoniae Antigen (M - Final - Clinical Findings Intake & Output: Intake & Output 11/22/16 11/23/16 11/23/16 23:59 07:59 15:59 Intake Total 0 / 0 Balance 0 / 0 Weight 108.1 kg Consult Discharge Plan - Plan Referrals: Sheela Klein MD [Primary Care Provider] -
--- NOTE | 2016-11-23 08:40 | Electrocardiograph Report ---
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
[2016-11-23] MEDS: amLODIPine 5 MG TABLET PO SCH (09:04)
[2016-11-23] MEDS: Gabapentin 300 MG CAPSULE PO SCH ×3 (09:04→21:47)
[2016-11-23] MEDS: Loratadine 10 MG TABLET PO SCH (09:05)
[2016-11-23] MEDS: Pantoprazole 40 MG VIAL IVP SCH (09:05)
[2016-11-23] MEDS: Furosemide 40 MG TABLET PO SCH ×2 (09:05→21:47)
[2016-11-23] MEDS: MethylPREDNISolone 40 MG/ML VIAL IVP SCH (09:05)
[2016-11-23] MEDS: Famotidine 20 MG TABLET PO SCH ×2 (09:05→21:47)
[2016-11-23] MEDS: Fluticasone Propionate Nasal 50 MCG/SPRAY BOTTLE NS SCH (09:06)
[2016-11-23] MEDS: Insulin DETEMIR 100 UNIT/ML X5UNITS SQ SCH ×2 (09:09→17:34)
[2016-11-23] MEDS: (Omega-3/Dha/Epa/Fish Oil [Fish Oil 1,000 Mg Softgel]) PO SCH (09:09)
[2016-11-23] MEDS: Nystatin SUSP 5 ML UD.LIQ PO SCH ×2 (09:09→21:46)
--- NOTE | 2016-11-23 09:42 | Internal Med Progress Note ---
<Elisabet Trejo - Last Filed: 11/23/16 10:22> Date of Encounter: 11/23/16 Time of Encounter: 09:41 - Assessment and plan (1) Bronchiectasis with (acute) exacerbation Current Visit: Yes Status: Acute Assessment and plan: s/p bronch continue broad spectrum IV abx , aerosols, steroids and supportive care supplemental O2 for O2 sats>89% ctx pending pulmonology following (2) Acute and chronic respiratory failure with hypoxia Current Visit: Yes Status: Acute Assessment and plan: Currently on oxygen supplementation. wean as tolerated for O2 sat>90% (3) Acute exacerbation of chronic obstructive pulmonary disease (COPD) Current Visit: Yes Status: Acute (4) DVT prophylaxis Current Visit: Yes Status: Acute (5) Hemoptysis Current Visit: Yes Status: Acute (6) CHF (congestive heart failure) Current Visit: Yes Status: Chronic Qualifiers: Congestive heart failure type: diastolic Congestive heart failure chronicity: chronic Qualified Code(s): I50.32 - Chronic diastolic (congestive ) heart failure (7) Diabetes Current Visit: Yes Status: Chronic Assessment and plan: Monitoring and covering as needed. Qualifiers: Diabetes mellitus type: type 2 Diabetes mellitus complication status: with hyperglycemia Diabetes mellitus watermelon inspector insulin use: without watermelon inspector use Qualified Code(s): E11.65 - Type 2 diabetes mellitus with hyperglycemia (8) GERD (gastroesophageal reflux disease) Current Visit: Yes Status: Chronic Assessment and plan: Supportive care. Qualifiers: Esophagitis presence: esophagitis presence not specified Qualified Code(s) : K21.9 - Gastro-esophageal reflux disease without esophagitis (9) Hypertension Current Visit: Yes Status: Chronic Qualifiers: Hypertension type: essential hypertension Qualified Code(s): I10 - Essential (primary) hypertension - Subjective Interval history: 76 yo M presented with hemoptysis of bright red blood with cough admitted with bronchiectasis. Pt states hemoptysis has resolved but he continues to have some cough with sputum production, but cough is much better then previously was. Pt denies dyspnea while walking around room, chest pain, LE edema. - Constitutional Vitals: Temp Pulse Resp BP Pulse Ox 98.0 F 74 18 149/93 98 11/23/16 07:10 11/23/16 07:10 11/23/16 07:45 11/23/16 07:10 11/23/16 07:45 General appearance: Present: cooperative, A&O X 3, pleasant, obese, answers questions appropriately - Head Head exam: Present: atraumatic, normocephalic - Eye Eye exam: Present: PERRL, conjuntiva pink, sclera anicteric Pupils: Present: PERRL - Neck Neck exam general surgery: Present: supple, trachea midline. Absent: lymphadenopathy - Respiratory Respiratory exam: Present: decreased breath sounds, rhonchi - Expanded Respiratory Exam Location: decreased breath sounds: Left, Right, Lower, rhonchi: Left, Right, Upper, Lower (anterior and posterior throughout, worst at bases) - Cardiovascular Cardiovascular exam: Present: RRR, +S1, +S2. Absent: diastolic murmur, gallop, rubs, systolic murmur - GI/Abdominal GI/Abdominal exam: Present: normal bowel sounds, soft, no peritoneal signs. Absent: distended, tenderness - Extremities Exam Extremities exam: Present: warm, radial pulses palpable and symetrical. Absent : calf tenderness, cyanotic, pedal edema - Neurological Exam Neurological exam: Present: CN II-XII intact, oriented X3, no focal deficits. Absent: pronater drift, facial droop, speech deficit - Skin Skin exam: Present: dry, intact Internal Medicine: Result - Labs CBC & Chem 7: 11/22/16 04:55 11/22/16 04:55 - ABG Interpretation ABG results: PT/INR, D-dimer PT 11.0 Seconds (9.4-12.1) 11/21/16 11:33 Consult Discharge Plan - Plan Referrals: Sheela Klein MD [Primary Care Provider] - <Donal Recio - Last Filed: 11/23/16 18:53> Date of Encounter: 11/23/16 - Assessment and plan (1) Bronchiectasis with (acute) exacerbation Current Visit: Yes Status: Acute (2) Acute and chronic respiratory failure with hypoxia Current Visit: Yes Status: Acute (3) GERD (gastroesophageal reflux disease) Current Visit: Yes Status: Chronic Qualifiers: Esophagitis presence: esophagitis presence not specified Qualified Code(s) : K21.9 - Gastro-esophageal reflux disease without esophagitis (4) Diabetes Current Visit: Yes Status: Chronic Qualifiers: Diabetes mellitus type: type 2 Diabetes mellitus complication status: with hyperglycemia Diabetes mellitus watermelon inspector insulin use: without watermelon inspector use Qualified Code(s): E11.65 - Type 2 diabetes mellitus with hyperglycemia (5) Obesity Current Visit: No Status: Chronic Qualifiers: Obesity type: unspecified obesity type Obesity severity: unspecified obesity severity Qualified Code(s): E66.9 - Obesity, unspecified - Constitutional Vitals: Temp Pulse Resp BP Pulse Ox 98.0 F 78 18 123/86 98 11/23/16 15:28 11/23/16 15:28 11/23/16 15:28 11/23/16 15:28 11/23/16 15:28 Internal Medicine: Result - Labs CBC & Chem 7: 11/22/16 04:55 11/22/16 04:55 - ABG Interpretation ABG results: PT/INR, D-dimer PT 11.0 Seconds (9.4-12.1) 11/21/16 11:33 - Attending Attestation I examined this patient and my medical decision-making was reviewed with the Resident Physician on 11/23/16. I agree with the documented findings, disposition and treatment plan as described except to the extent set forth below. Mr. Madrid is currently admitted for acute exac bronchiectasis. He is moderate risk due to potential for worsening respiratory status. Mr. Madrid is shaving and is going to shower. No fever or chills. Cultures pending. Exam Alert. Comfortable Continues deep moist cough No wheeze. I/P 1. Bronchiectasis 2. Dm Further diagnoses and plan as above.
[2016-11-23] MEDS: GuaiFENesin/Codeine Oral Soln 5 ML UDC PO PRN (13:15)
[2016-11-23] MEDS: Benzonatate 100 MG CAPSULE PO PRN ×2 (17:42→21:47)
[2016-11-23] MEDS: Finasteride 5 MG TABLET PO SCH (21:47)
[2016-11-24] MEDS: Budesonide/Formoterol 160/4.5 MDI IH SCH ×2 (08:08→19:39)
[2016-11-24] MEDS: Ipratropium/Albuterol Neb 3 ML IH PRN (08:09)
[2016-11-24] MEDS: Acetylcysteine 10% 2 ML INHSOL IH SCH (08:09)
--- NOTE | 2016-11-24 08:49 | Pulmonology Progress Note ---
<Keron Daniels - Last Filed: 11/24/16 12:57> Date of Encounter: 11/24/16 Time of Encounter: 11:09 Assessment and Plan (1) Acute respiratory failure with hypoxemia Current Visit: Yes Status: Resolved 76 y/o male presented with hemoptysis. States he coughed up three clots with last one measuring one teaspoon. Patient has hx of bronchiectasis, COPD. He is on 4L O2 at home. Patient is previous cigarette smoker 40 years ago with 20 pack year history. 2nd to acute exacerbation of s/p bronchoscopy showing right upper and middle lobe lobe thick mucopurulent secretions. improvement in dyspnea, clearing of secretions -continue acapella, sinus spirometry, and encourage ambulation -continue N-acetylcystine, and bronchodialators Patient on 3.5L O2 and oxygenating >90% BAL cultures negative -continue ceftriaxone (day 4) Clinically improved, however, patient states he is more fatigued today. continue monitoring respiratory status. (2) Bronchiectasis Current Visit: Yes Status: Chronic hx of bronchiectasis. s/p bronchoscopy improved sob, chest congestion continue mucinex, N-acetylcystine, methylprednisone, bronchodilators Qualifiers: Bronchiectasis type: with acute exacerbation Qualified Code(s): J47.1 - Bronchiectasis with (acute) exacerbation (3) Chronic respiratory failure Current Visit: Yes Status: Chronic 2nd to bronchiectasis plan as above. Qualifiers: Respiratory failure complication: hypoxia Qualified Code(s): J96.11 - Chronic respiratory failure with hypoxia (4) Hemoptysis Current Visit: Yes Status: Resolved resolved. (5) Mild diastolic dysfunction Current Visit: Yes Status: Chronic continue lasix. goal is negative fluid balance. absent pedal edema. Subjective Principal diagnosis: Hemoptysis Interval history: Patient denies hemoptysis. States sob improved, he is able to take deeper breaths. He, however feels more tired compared to yesterday. Objective PUL Vital signs: Last Vital Signs Temp 97.9 F 11/24/16 07:07 Pulse 63 11/24/16 07:07 Resp 18 11/24/16 07:07 BP 139/85 11/24/16 07:07 Pulse Ox 95 11/24/16 07:07 General appearance: appears uncomfortable Eyes: nonicteric ENT: oropharynx moist Effort: mildly labored Auscultation: bilateral: rhonchi Cardiovascular: regular rate and rhythm Gastrointestinal: normoactive bowel sounds, non-distended Extremities: no cyanosis, no edema, no clubbing Results - Laboratory Findings CBC and BMP: 11/22/16 04:55 11/22/16 04:55 PT/INR, D-dimer PT 11.0 Seconds (9.4-12.1) 11/21/16 11:33 Abnormal lab findings: Abnormal lab results Glucose 100 mg/dL (70-99) H 11/22/16 04:55 POC Glucose 287 (58-89) H 11/23/16 19:43 Serum Total Protein 5.6 g/dL (6.0-8.3) L 11/22/16 04:55 Albumin 3.3 g/dL (3.5-5.0) L 11/22/16 04:55 Globulin 2.3 g/dL (2.4-3.5) L 11/22/16 04:55 Triglycerides 172 mg/dL (< 150) H 11/22/16 04:55 VLDL Cholesterol, Calc 34 mg/dL (< 31) H 11/22/16 04:55 HDL Cholesterol 37 mg/dL (40-59) L 11/22/16 04:55 Fluid Appearance Slightly Hazy (Clear) A 11/22/16 10:53 - Microbiology Findings Microbiology Findings: Microbiology, Last 48 Hours 11/22/16 10:53 Acid Fast Stain - Final Right Middle Lobe Lung 11/22/16 10:53 Gram Stain - Final Right Middle Lobe Lung - Clinical Findings Intake & Output: Intake & Output 11/23/16 11/24/16 11/24/16 23:59 07:59 15:59 Weight 107.6 kg Consult Discharge Plan - Plan Referrals: Sheela Klein MD [Primary Care Provider] - 12/04/16 10:20 am <Navneet Dutton - Last Filed: 11/24/16 17:13> Date of Encounter: 11/24/16 Objective PUL Vital signs: Last Vital Signs Temp 98.1 F 11/24/16 16:02 Pulse 71 11/24/16 16:02 Resp 20 11/24/16 16:25 BP 142/83 11/24/16 16:02 Pulse Ox 94 11/24/16 16:25 Results - Laboratory Findings CBC and BMP: 11/22/16 04:55 11/22/16 04:55 PT/INR, D-dimer PT 11.0 Seconds (9.4-12.1) 11/21/16 11:33 Abnormal lab findings: Abnormal lab results Glucose 100 mg/dL (70-99) H 11/22/16 04:55 POC Glucose 287 (58-89) H 11/23/16 19:43 Serum Total Protein 5.6 g/dL (6.0-8.3) L 11/22/16 04:55 Albumin 3.3 g/dL (3.5-5.0) L 11/22/16 04:55 Globulin 2.3 g/dL (2.4-3.5) L 11/22/16 04:55 Triglycerides 172 mg/dL (< 150) H 11/22/16 04:55 VLDL Cholesterol, Calc 34 mg/dL (< 31) H 11/22/16 04:55 HDL Cholesterol 37 mg/dL (40-59) L 11/22/16 04:55 Fluid Appearance Slightly Hazy (Clear) A 11/22/16 10:53 - Attending Attestation I examined this patient and my medical decision-making was reviewed with the OWNER/PHOTOGRAPHER/PA/Advanced Practice Nurse/Resident Physician. I agree with the documented findings, disposition and treatment plan as described except to the extent set forth below. Patient seen and examined. Labs, radiology, chart personally reviewed. Agree with resident's history and physical, assessment, plan with following comments: DIGITAL EDITOR: Patient follows commands, Pulmonary: Acceptable oxygenation and ventilation and patient is feeling better. Transition to oral antibiotics to be treated as outpatient is reasonable. Discussed with primary team. Discussed with the at the bedside. Continue wean off FiO2 to keep SPO2 around 90%. It has been very difficult treating this patient and to keep him out of the hospital with recurrent exacerbations. Cardiovascular: stable
[2016-11-24] MEDS: Insulin LISPRO 300 UNITS/3 ML VIAL SQ SCH ×4 (09:22→20:42)
[2016-11-24] MEDS: (Omega-3/Dha/Epa/Fish Oil [Fish Oil 1,000 Mg Softgel]) PO SCH (09:22)
[2016-11-24] MEDS: Pantoprazole 40 MG VIAL IVP SCH (09:30)
[2016-11-24] MEDS: amLODIPine 5 MG TABLET PO SCH (09:30)
[2016-11-24] MEDS: Famotidine 20 MG TABLET PO SCH ×2 (09:31→20:41)
[2016-11-24] MEDS: Gabapentin 300 MG CAPSULE PO SCH ×3 (09:31→20:41)
[2016-11-24] MEDS: Loratadine 10 MG TABLET PO SCH (09:31)
[2016-11-24] MEDS: MethylPREDNISolone 40 MG/ML VIAL IVP SCH (09:32)
[2016-11-24] MEDS: Fluticasone Propionate Nasal 50 MCG/SPRAY BOTTLE NS SCH (09:32)
[2016-11-24] MEDS: Insulin DETEMIR 100 UNIT/ML X5UNITS SQ SCH (09:33)
[2016-11-24] MEDS: Nystatin SUSP 5 ML UD.LIQ PO SCH ×2 (09:34→20:40)
[2016-11-24] MEDS: Furosemide 40 MG TABLET PO SCH ×2 (09:35→20:41)
--- NOTE | 2016-11-24 10:28 | Internal Med Progress Note ---
<MayaElisabet Ann - Last Filed: 11/24/16 10:26> Date of Encounter: 11/24/16 Time of Encounter: 10:26 - Assessment and plan (1) Bronchiectasis with (acute) exacerbation Current Visit: Yes Status: Acute Assessment and plan: s/p bronch continue broad spectrum IV abx , aerosols, steroids and supportive care supplemental O2 for O2 sats>89% on 3.5 L O2, ween as tolerated ctx pending pulmonology following (2) Acute and chronic respiratory failure with hypoxia Current Visit: Yes Status: Acute Assessment and plan: Currently on oxygen supplementation. wean as tolerated for O2 sat>90% (3) Acute exacerbation of chronic obstructive pulmonary disease (COPD) Current Visit: Yes Status: Acute (4) DVT prophylaxis Current Visit: Yes Status: Acute (5) Hemoptysis Current Visit: Yes Status: Acute (6) CHF (congestive heart failure) Current Visit: Yes Status: Chronic Qualifiers: Congestive heart failure type: diastolic Congestive heart failure chronicity: chronic Qualified Code(s): I50.32 - Chronic diastolic (congestive ) heart failure (7) Diabetes Current Visit: Yes Status: Chronic Assessment and plan: Monitoring and covering as needed. Qualifiers: Diabetes mellitus type: type 2 Diabetes mellitus complication status: with hyperglycemia Diabetes mellitus long winder tender insulin use: without long winder tender use Qualified Code(s): E11.65 - Type 2 diabetes mellitus with hyperglycemia (8) GERD (gastroesophageal reflux disease) Current Visit: Yes Status: Chronic Assessment and plan: Supportive care. Qualifiers: Esophagitis presence: esophagitis presence not specified Qualified Code(s) : K21.9 - Gastro-esophageal reflux disease without esophagitis (9) Hypertension Current Visit: Yes Status: Chronic Qualifiers: Hypertension type: essential hypertension Qualified Code(s): I10 - Essential (primary) hypertension - Subjective Interval history: 76 yo M presented with hemoptysis of bright red blood with cough admitted with bronchiectasis. Pt states hemoptysis has resolved but he continues to have some cough with sputum production, but cough is much better then previously was. Pt denies dyspnea while walking around room, chest pain, LE edema. - Constitutional Vitals: Temp Pulse Resp BP Pulse Ox 97.9 F 63 18 139/85 95 11/24/16 07:07 11/24/16 07:07 11/24/16 07:07 11/24/16 07:07 11/24/16 07:07 General appearance: Present: cooperative, A&O X 3, pleasant, obese, answers questions appropriately - Head Head exam: Present: atraumatic, normocephalic - Eye Eye exam: Present: PERRL, conjuntiva pink, sclera anicteric Pupils: Present: PERRL - Neck Neck exam general surgery: Present: supple, trachea midline. Absent: lymphadenopathy - Respiratory Respiratory exam: Present: decreased breath sounds, respiratory distress, wheezes. Absent: accessory muscle use, stridor, tachypnea - Expanded Respiratory Exam Location: decreased breath sounds: Left, Right, Lower, wheezes: Left, Right ( mild scattered) - Cardiovascular Cardiovascular exam: Present: RRR, +S1, +S2. Absent: diastolic murmur, gallop, rubs, systolic murmur - GI/Abdominal GI/Abdominal exam: Present: normal bowel sounds, soft, no peritoneal signs. Absent: distended, tenderness - Extremities Exam Extremities exam: Present: warm, radial pulses palpable and symetrical. Absent : calf tenderness, cyanotic, pedal edema - Neurological Exam Neurological exam: Present: CN II-XII intact, oriented X3, no focal deficits. Absent: pronater drift, facial droop, speech deficit - Skin Skin exam: Present: dry, intact Internal Medicine: Result - Labs CBC & Chem 7: 11/22/16 04:55 11/22/16 04:55 - ABG Interpretation ABG results: PT/INR, D-dimer PT 11.0 Seconds (9.4-12.1) 11/21/16 11:33 Consult Discharge Plan - Plan Referrals: Sheela Klein MD [Primary Care Provider] - 12/04/16 10:20 am <Donal Recio - Last Filed: 11/24/16 19:26> Date of Encounter: 11/24/16 - Assessment and plan (1) Bronchiectasis with (acute) exacerbation Current Visit: Yes Status: Acute (2) Acute and chronic respiratory failure with hypoxia Current Visit: Yes Status: Acute (3) GERD (gastroesophageal reflux disease) Current Visit: Yes Status: Chronic Qualifiers: Esophagitis presence: esophagitis presence not specified Qualified Code(s) : K21.9 - Gastro-esophageal reflux disease without esophagitis (4) Diabetes Current Visit: Yes Status: Chronic Qualifiers: Diabetes mellitus type: type 2 Diabetes mellitus complication status: with hyperglycemia Diabetes mellitus long winder tender insulin use: without fci use Qualified Code(s): E11.65 - Type 2 diabetes mellitus with hyperglycemia (5) Obesity Current Visit: No Status: Chronic Qualifiers: Obesity type: unspecified obesity type Obesity severity: unspecified obesity severity Qualified Code(s): E66.9 - Obesity, unspecified - Constitutional Vitals: Temp Pulse Resp BP Pulse Ox 97.9 F 74 24 132/78 93 11/24/16 19:06 11/24/16 19:06 11/24/16 19:06 11/24/16 19:06 11/24/16 19:06 Internal Medicine: Result - Labs CBC & Chem 7: 11/22/16 04:55 11/22/16 04:55 - ABG Interpretation ABG results: PT/INR, D-dimer PT 11.0 Seconds (9.4-12.1) 11/21/16 11:33 - Attending Attestation I examined this patient and my medical decision-making was reviewed with the Resident Physician on 11/24/16. I agree with the documented findings, disposition and treatment plan as described except to the extent set forth below. Mr. Madrid is currently admitted for acute exac bronchiectasis. He remains moderate risk due to potential for worsening resp status. Mr Madrid is still coughing some but feels like he is improving. No fever. Less sputum. No GI symptoms. Cx pending. Exam Alert. Comfortable Heart reg Coarse rhonchi bilaterally. I/P 1. Bronchiectasis Further diagnoses and plan as above.
[2016-11-24] MEDS ORDERED: Acetylcysteine 10% 2 ML INHSOL IH PRN (14:29)
[2016-11-24] MEDS: Ipratropium/Albuterol Neb 3 ML IH SCH ×2 (16:25→19:39)
[2016-11-24] MEDS: *HR* Heparin 5,000 UNIT/ML VIAL SQ SCH ×2 (17:15→20:42)
[2016-11-24] MEDS: Finasteride 5 MG TABLET PO SCH (20:40)
[2016-11-24] MEDS ORDERED: Insulin DETEMIR 100 UNIT/ML X5UNITS SQ SCH (21:00)
[2016-11-25] MEDS: Ipratropium/Albuterol Neb 3 ML IH SCH ×4 (00:37→11:40)
[2016-11-25] MEDS: *HR* Heparin 5,000 UNIT/ML VIAL SQ SCH (04:45)
[2016-11-25 07:12] VITALS: BP 137/83
--- NOTE | 2016-11-25 08:41 | Internal Med Progress Note ---
Date of Encounter: 11/25/16 Time of Encounter: 08:39 - Assessment and plan (1) Acute respiratory failure with hypoxemia Current Visit: Yes Status: Resolved (2) Bronchiectasis Current Visit: Yes Status: Chronic Qualifiers: Bronchiectasis type: with acute exacerbation Qualified Code(s): J47.1 - Bronchiectasis with (acute) exacerbation (3) Chronic respiratory failure Current Visit: Yes Status: Chronic Qualifiers: Respiratory failure complication: hypoxia Qualified Code(s): J96.11 - Chronic respiratory failure with hypoxia (4) Hemoptysis Current Visit: Yes Status: Resolved (5) Mild diastolic dysfunction Current Visit: Yes Status: Chronic - Subjective Interval history: Reports respiratory status almost back to his normal at home. Reports improved fatigue from yesterday. Continues to have productive cough. Denies CP, hemoptysis. - Constitutional Vitals: Temp Pulse Resp BP Pulse Ox 97.5 F L 71 18 137/83 95 11/25/16 07:06 11/25/16 07:06 11/25/16 07:06 11/25/16 07:06 11/25/16 07:06 General appearance: Present: cooperative, A&O X 3, pleasant, obese, answers questions appropriately Internal Medicine: Result - Labs CBC & Chem 7: 11/22/16 04:55 11/22/16 04:55 - ABG Interpretation ABG results: PT/INR, D-dimer PT 11.0 Seconds (9.4-12.1) 11/21/16 11:33 - VTE Documentation of Mechanical Device: Graduated compression elastic hosiery Consult Discharge Plan - Plan Referrals: Sheela Klein MD [Primary Care Provider] - 12/04/16 10:20 am
[2016-11-25] MEDS: Insulin LISPRO 300 UNITS/3 ML VIAL SQ SCH (08:44)
[2016-11-25] MEDS: MethylPREDNISolone 40 MG/ML VIAL IVP SCH (08:45)
--- NOTE | 2016-11-25 08:46 | Pulmonology Progress Note ---
<Keron Daniels - Last Filed: 11/25/16 08:42> Date of Encounter: 11/25/16 Time of Encounter: 08:42 Assessment and Plan (1) Acute respiratory failure with hypoxemia Status: Resolved 76 y/o male presented with hemoptysis. States he coughed up three clots with last one measuring one teaspoon. Patient has hx of bronchiectasis, COPD. He is on 4L O2 at home. Patient is previous cigarette smoker 40 years ago with 20 pack year history. 2nd to acute exacerbation of s/p bronchoscopy showing right upper and middle lobe lobe thick mucopurulent secretions. improvement in dyspnea, clearing of secretions -continue acapella, sinus spirometry, and encourage ambulation -continue N-acetylcystine, and bronchodialators Patient on 4L O2 and oxygenating >90% BAL cultures, sputum cultures negative -on IV ceftriaxone, transition to PO Patient date shortness of breath improved, able to take deep breaths. Hemoptysis resolved. Patient can be transitioned to by mouth antibiotic regimen. Follow up with pulmonology outpatient. (2) Bronchiectasis Status: Chronic hx of bronchiectasis. s/p bronchoscopy improved sob, chest congestion continue mucinex, N-acetylcystine, methylprednisone, bronchodilators Qualifiers: Bronchiectasis type: with acute exacerbation Qualified Code(s): J47.1 - Bronchiectasis with (acute) exacerbation (3) Chronic respiratory failure Status: Chronic 2nd to bronchiectasis plan as above. Qualifiers: Respiratory failure complication: hypoxia Qualified Code(s): J96.11 - Chronic respiratory failure with hypoxia (4) Hemoptysis Status: Resolved resolved. (5) Mild diastolic dysfunction Status: Chronic continue lasix. goal is negative fluid balance. absent pedal edema. Subjective Principal diagnosis: Hemoptysis Interval history: Reports respiratory status almost back to his normal at home. Reports improved fatigue from yesterday. Continues to have productive cough. Denies CP, hemoptysis. Objective PUL Vital signs: Last Vital Signs Temp 97.5 F L 11/25/16 07:06 Pulse 71 11/25/16 07:06 Resp 18 11/25/16 07:06 BP 137/83 11/25/16 07:06 Pulse Ox 95 11/25/16 07:06 General appearance: no acute distress Eyes: nonicteric ENT: oropharynx moist Mallampati (class): 1 Effort: normal, mildly labored Auscultation: right: wheezes (Right upper), bilateral: clear, rales (Lower lobes ), rhonchi (Lower lobes) Cardiovascular: regular rate and rhythm Gastrointestinal: normoactive bowel sounds, non-distended Integumentary: normal Extremities: no cyanosis, no edema, no clubbing Musculoskeletal: no deformities, ROM normal normal mental status, non-focal exam mood appropriate, affect normal Results - Laboratory Findings CBC and BMP: 11/22/16 04:55 11/22/16 04:55 PT/INR, D-dimer PT 11.0 Seconds (9.4-12.1) 11/21/16 11:33 Abnormal lab findings: Abnormal lab results Glucose 100 mg/dL (70-99) H 11/22/16 04:55 POC Glucose 148 (58-89) H 11/25/16 07:12 Serum Total Protein 5.6 g/dL (6.0-8.3) L 11/22/16 04:55 Albumin 3.3 g/dL (3.5-5.0) L 11/22/16 04:55 Globulin 2.3 g/dL (2.4-3.5) L 11/22/16 04:55 Triglycerides 172 mg/dL (< 150) H 11/22/16 04:55 VLDL Cholesterol, Calc 34 mg/dL (< 31) H 11/22/16 04:55 HDL Cholesterol 37 mg/dL (40-59) L 11/22/16 04:55 Fluid Appearance Slightly Hazy (Clear) A 11/22/16 10:53 - Clinical Findings Intake & Output: Intake & Output 11/24/16 11/25/16 11/25/16 23:59 07:59 15:59 Intake Total 120 / 120 200 / 200 Output Total 300 / 300 0 / 0 0 / 0 Balance -180 / -180 200 / 200 0 / 0 Weight 106.8 kg - VTE Documentation of Mechanical Device: Graduated compression elastic hosiery Consult Discharge Plan - Plan Instructions: Cefdinir (By mouth), Heart Failure (DC), Diabetes Mellitus Type 2 in Adults (DC), Chronic Obstructive Pulmonary Disease (GEN), Hypoxia (GEN) Referrals: Sheela Klein MD [Primary Care Provider] - 12/04/16 10:20 am Prescriptions: Cefdinir [Omnicef] 300 mg PO BID #12 capsule <Navneet Dutton M - Last Filed: 11/25/16 17:35> Date of Encounter: 11/25/16 Objective PUL Vital signs: Last Vital Signs Temp 97.5 F L 11/25/16 07:06 Pulse 71 11/25/16 07:06 Resp 18 11/25/16 09:03 BP 137/83 11/25/16 07:06 Pulse Ox 95 11/25/16 09:03 Results - Laboratory Findings CBC and BMP: 11/22/16 04:55 11/22/16 04:55 PT/INR, D-dimer PT 11.0 Seconds (9.4-12.1) 11/21/16 11:33 Abnormal lab findings: Abnormal lab results Glucose 100 mg/dL (70-99) H 11/22/16 04:55 POC Glucose 148 (58-89) H 11/25/16 07:12 Serum Total Protein 5.6 g/dL (6.0-8.3) L 11/22/16 04:55 Albumin 3.3 g/dL (3.5-5.0) L 11/22/16 04:55 Globulin 2.3 g/dL (2.4-3.5) L 11/22/16 04:55 Triglycerides 172 mg/dL (< 150) H 11/22/16 04:55 VLDL Cholesterol, Calc 34 mg/dL (< 31) H 11/22/16 04:55 HDL Cholesterol 37 mg/dL (40-59) L 11/22/16 04:55 Fluid Appearance Slightly Hazy (Clear) A 11/22/16 10:53 - Clinical Findings Intake & Output: Intake & Output 11/25/16 11/25/16 11/25/16 07:59 15:59 23:59 Intake Total 200 / 200 240 / 240 Output Total 0 / 0 0 / 0 Balance 200 / 200 240 / 240 Weight 106.8 kg - Attending Attestation I examined this patient and my medical decision-making was reviewed with the TELEPHONE MAINTENANCE MECHANIC/PA/Advanced Practice Nurse/Resident Physician. I agree with the documented findings, disposition and treatment plan as described except to the extent set forth below. Patient seen and examined. Labs, radiology, chart personally reviewed. 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 Patient discharged home to follow-up in the clinic as previously scheduled.
[2016-11-25] MEDS ORDERED: predniSONE 10 MG TABLET PO ONE ×2 (08:47→09:58)
[2016-11-25] MEDS: Famotidine 20 MG TABLET PO SCH (08:53)
[2016-11-25] MEDS: Furosemide 40 MG TABLET PO SCH (08:53)
[2016-11-25] MEDS: Gabapentin 300 MG CAPSULE PO SCH (08:53)
[2016-11-25] MEDS: amLODIPine 5 MG TABLET PO SCH (08:53)
[2016-11-25] MEDS: Insulin DETEMIR 100 UNIT/ML X5UNITS SQ SCH (08:54)
[2016-11-25] MEDS: Nystatin SUSP 5 ML UD.LIQ PO SCH (08:54)
[2016-11-25] MEDS: Loratadine 10 MG TABLET PO SCH (08:54)
--- NOTE | 2016-11-25 09:00 | Discharge Summary ---
<Elisabet Trejo - Last Filed: 11/25/16 09:24> Date of Encounter: 11/25/16 Time of Encounter: 08:53 - Discharge Diagnosis (1) Bronchiectasis with (acute) exacerbation Priority: Primary Status: Acute (2) Acute and chronic respiratory failure with hypoxia Priority: Secondary Status: Acute (3) Acute exacerbation of chronic obstructive pulmonary disease (COPD) Priority: Secondary Status: Acute (4) Hemoptysis Priority: Secondary Status: Resolved (5) CHF (congestive heart failure) Priority: Secondary Status: Chronic Qualifiers: Congestive heart failure type: diastolic Congestive heart failure chronicity: chronic Qualified Code(s): I50.32 - Chronic diastolic (congestive ) heart failure (6) Diabetes Priority: Secondary Status: Chronic Qualifiers: Diabetes mellitus type: type 2 Diabetes mellitus complication status: with hyperglycemia Diabetes mellitus continuous churn buttermaker insulin use: without penitentiary use Qualified Code(s): E11.65 - Type 2 diabetes mellitus with hyperglycemia (7) GERD (gastroesophageal reflux disease) Priority: Secondary Status: Chronic Qualifiers: Esophagitis presence: esophagitis presence not specified Qualified Code(s) : K21.9 - Gastro-esophageal reflux disease without esophagitis (8) Hypertension Status: Chronic Qualifiers: Hypertension type: essential hypertension Qualified Code(s): I10 - Essential (primary) hypertension (9) DVT prophylaxis Priority: Secondary Status: Acute - Discharge Medications Prescriptions: Cefdinir [Omnicef] 300 mg PO BID #12 capsule Home Medications: Albuterol Sulfate [Proair Hfa] 2 puff IH Q4H PRN 09/08/15 [History] Budesonide/Formoterol 160/4.5 [Symbicort 160/4.5] 2 puff IH BID 09/08/15 [ History] Finasteride [Proscar] 5 mg PO HS 09/08/15 [History] Fluticasone Propionate Nasal [Flonase] 50 mcg NS DAILY 09/08/15 [History] Amlodipine Besylate 10 mg PO DAILY 11/13/15 [History] Guaifenesin [Mucinex] 600 mg PO BID 11/13/15 [History] Montelukast [Singulair] 10 mg PO HS 11/13/15 [History] Ranitidine HCl [Zantac] 150 mg PO BID 11/13/15 [History] Benzonatate [Tessalon] 100 mg PO TID PRN 02/09/16 [History] Furosemide [Lasix] 40 mg PO BID 02/09/16 [History] Loratadine [Claritin] 10 mg PO DAILY 02/09/16 [History] Nystatin [Nystatin Suspension] 15 ml PO BID 02/09/16 [History] Potassium Chloride [K-Tab ER] 20 meq PO DAILY 02/09/16 [History] Albuterol Neb [Proventil Neb] 2.5 mg IH QID 04/15/16 [History] Sayner-3/Dha/Epa/Fish Oil [Fish Oil 1,000 mg Softgel] 1,000 mg PO DAILY 04/15/16 [History] Oxygen 4 l NS CONT 04/15/16 [History] metFORMIN [Glucophage] 500 mg PO BID 04/15/16 [History] Ipratropium/Albuterol Neb [Duoneb] 3 ml IH [id number] PRN #90 inhsol 06/30/16 [Rx] Polyethylene Glycol 3350 [MiraLAX] 17 gm PO DAILY PRN #10 powd.pack 06/30/16 [Rx ] Gabapentin [Neurontin] 300 mg PO TID 11/17/16 [History] Insulin DETEMIR [Levemir Flextouch] 5 unit SQ QAM 11/17/16 [History] Insulin DETEMIR [Levemir Flextouch] 15 unit SQ QPM 11/17/16 [History] Sennosides/Docusate Sodium [Senna Plus] 1 each PO DAILY 11/17/16 [History] predniSONE [PredniSONE] 10 - 20 mg PO DAILY PRN 11/17/16 [History] GuaiFENesin Liq [Robitussin Liq] 200 mg PO Q6HR PRN #200 ml 11/20/16 [Rx] predniSONE [PredniSONE] 10 mg PO DAILY #41 tablet 11/20/16 [Rx] Cefdinir [Omnicef] 300 mg PO BID #12 capsule 11/25/16 [Rx] Allergies/Adverse Reactions: Allergies tobramycin Allergy (Severe, Verified 11/21/16 14:40) Difficulty Breathing Date of admission: 11/24/16 15:17 Primary care physician: Sheela Klein MD Consults: pulmonology Dr. Dutton Discharging clinician: Elisabet Trejo Anticipated date of discharge: 11/25/16 - Patient Status Disposition: Home, Self-Care Condition: Fair Overall status at discharge: patient is progressing back to baseline - Discharge Instructions Instructions: Cefdinir (By mouth), Heart Failure (DC), Diabetes Mellitus Type 2 in Adults (DC), Chronic Obstructive Pulmonary Disease (GEN), Hypoxia (GEN) Follow Up With: Sheela Klein MD [Primary Care Provider] - 12/04/16 10:20 am - Diet and Activity Activity: increase activity as tolerated, wear oxygen at all times Diet: diabetic diet Interval History: 76 yo M presented with acute hemoptysis and acute exacerbation of bronchiectasis. Patient started on IV antibiotics, bronchodilators therapy and IV steroid. pulmonology consulted and bronchoscope with culture samples taken. Blood, sputum and BAL cultures came back without indication of acute infection. Patient progressed well with improvement of symptoms. Converted to oral antibiotics and on baseline home oxygen, is scheduled to follow up with primary care and pulmonology. Hospital course: Mr. Madrid is a 76 year old male - Time Spent with Patient Total time spent providing and/or coordinating discharge services: - Constitutional Vitals: Temp Pulse Resp BP Pulse Ox 97.5 F L 71 18 137/83 95 11/25/16 07:06 11/25/16 07:06 11/25/16 07:06 11/25/16 07:06 11/25/16 07:06 General appearance: Present: cooperative, A&O X 3, pleasant, obese, answers questions appropriately - Head Head exam: Present: atraumatic, normocephalic - Eye Eye exam: Present: EOMI, PERRL, conjuntiva pink, sclera anicteric Pupils: Present: PERRL - Neck Neck exam general surgery: Present: supple, trachea midline. Absent: lymphadenopathy - Respiratory Respiratory exam: Present: decreased breath sounds, rhonchi, wheezes. Absent: accessory muscle use, chest wall tenderness, tachypnea - Expanded Respiratory Exam Location: decreased breath sounds: Left, Right, Upper, Lower (diminshed and course throughout), rhonchi: Left, Right, Lower (mild b/l), wheezes: Left, Right , Lower (end expiratory wheeze) - Cardiovascular Cardiovascular exam: Present: RRR, +S1, +S2. Absent: diastolic murmur, gallop, rubs, systolic murmur - GI/Abdominal GI/Abdominal exam: Present: normal bowel sounds, soft, no peritoneal signs. Absent: distended, tenderness - Extremities Exam Extremities exam: Present: warm, radial pulses palpable and symetrical. Absent : calf tenderness, cyanotic, pedal edema - Neurological Exam Neurological exam: Present: CN II-XII intact, oriented X3, no focal deficits. Absent: pronater drift, facial droop, speech deficit - VTE Documentation of Mechanical Device: Graduated compression elastic hosiery <Donal Recio - Last Filed: 11/25/16 13:12> Date of Encounter: 11/25/16 - Discharge Diagnosis (1) Bronchiectasis with (acute) exacerbation Status: Acute (2) Acute and chronic respiratory failure with hypoxia Status: Acute (3) GERD (gastroesophageal reflux disease) Status: Chronic Qualifiers: Esophagitis presence: esophagitis presence not specified Qualified Code(s) : K21.9 - Gastro-esophageal reflux disease without esophagitis (4) Diabetes Status: Chronic Qualifiers: Diabetes mellitus type: type 2 Diabetes mellitus complication status: with hyperglycemia Diabetes mellitus penitentiary insulin use: without penitentiary use Qualified Code(s): E11.65 - Type 2 diabetes mellitus with hyperglycemia (5) Obesity Priority: Secondary Status: Chronic Qualifiers: Obesity type: unspecified obesity type Obesity severity: unspecified obesity severity Qualified Code(s): E66.9 - Obesity, unspecified Date of admission: 11/24/16 15:17 Primary care physician: Sheela Klein MD Hospital course: Mr. Madrid is a 76 year old male - Time Spent with Patient Total time spent providing and/or coordinating discharge services: 39min - Constitutional Vitals: Temp Pulse Resp BP Pulse Ox 97.5 F L 71 18 137/83 95 11/25/16 07:06 11/25/16 07:06 11/25/16 09:03 11/25/16 07:06 11/25/16 09:03 - Attending Attestation I examined this patient and my medical decision-making was reviewed with the Resident Physician on 11/25/16. I agree with the documented findings, disposition and treatment plan as described except to the extent set forth below. Mr. Madrid feels OK at this time. No acute issues overnight. His cough has improved a lot. No fever. Vitals are stable today. Exam Alert. Comfortable Heart reg Scattered rhonchi - much improved. Plan D/C home today with outpatient follow up.
[2016-11-25] MEDS: Budesonide/Formoterol 160/4.5 MDI IH SCH (09:01)
[2016-11-25] MEDS: Fluticasone Propionate Nasal 50 MCG/SPRAY BOTTLE NS SCH (10:19)
== END 2016-11-25 11:39 | disposition home or self-care (01) | DRG 166 ==
LOC: 2NENU 10:59 → EMEROO 10:59 → 2NENU 15:32
PROVIDERS: ADMIT Internal Medicine; ATTEND Internal Medicine

== ENCOUNTER 2019-04-15 16:12 | Inpatient (IN) ==
[2019-04-15] MEDS ORDERED: Ipratropium/Albuterol Neb 3 ML IH ONE ×2 (16:27→17:39)
[2019-04-15] MEDS ORDERED: methylPREDNISolone 125 MG/2 ML VIAL IVP ONE (16:27)
[2019-04-15] MEDS ORDERED: Ipratropium/Albuterol Neb 3 ML ONE (16:28)
[2019-04-15] MEDS ORDERED: Benzonatate 100 MG CAPSULE PO ONE (16:28)
[2019-04-15 17:08] LABS: Basophils % 0.3 %; Eosinophils % 0.1 %; Hematocrit 45.1 % (37.5-50.1); Hemoglobin 14.8 g/dL (12.9-16.9); Immature Granulocytes % 0.8 % (0-4); Lymphocytes # 0.5 K/mcL (0.6-4.6); Lymphocytes % 4.8 %; Mean Corpuscular HGB Conc 32.8 g/dL (31.6-35.5); Mean Corpuscular Hemoglobin 31.3 pg (28.0-33.3); Mean Corpuscular Volume 95.3 fL (83.0-100.0); Mean Platelet Volume 11.2 fL (9.4-12.4); Monocytes # 0.4 K/mcL (0.0-1.3); Monocytes % 4.3 %; Neutrophils # 9.2 K/mcL (1.6-8.9); Platelet Count 219 K/mcL (140-400); Red Blood Count 4.73 M/mcL (4.19-5.50); Red Cell Distribution Width 13.5 % (11.5-14.5); Segmented Neutrophils % 89.7 %; White Blood Count 10.2 K/mcL (4.3-11.1)
[2019-04-15 17:31] LABS: Alanine Aminotransferase 44 Units/L (7-52); Albumin 4.1 g/dL (3.5-5.7); Albumin/Globulin Ratio 1.7 (1.1-2.2); Alkaline Phosphatase 83 Units/L (34-104); Aspartate Amino Transferase 27 Units/L (13-39); BUN/Creatinine Ratio 18 (6-26); Bilirubin,Total 0.4 mg/dL (0.3-1.0); Blood Urea Nitrogen 20 mg/dL (8-23); Calcium 8.8 mg/dL (8.6-10.3); Carbon Dioxide 20 mEq/L (23-29); Chloride 103 mEq/L (98-107); Globulin 2.4 g/dL (2.4-3.5); Glucose 380 mg/dL (70-105); Osmolality,Calculated 304 (280-300); Potassium 5.1 mEq/L (3.5-5.1); Sodium 138 mEq/L (136-145); Total Protein 6.5 g/dL (6.4-8.9); Troponin I < 0.03 ng/mL (< 0.04); eGFR For African Americans > 60 (> 60); eGFR For Non-African Americans > 60 (> 60)
[2019-04-16] MEDS ORDERED: Naloxone 0.4 MG/ML INJ IVP PRN (02:17)
[2019-04-16] MEDS ORDERED: *HR* Dextrose 50 % in Water (Syg) 50 ML SYRINGE IVP PRN (02:19)
[2019-04-16] MEDS ORDERED: Dextrose Gel 15 GM/37.5 ML TUBE PO PRN ×2 (02:19)
[2019-04-16] MEDS ORDERED: D5% in Water 1,000 ML IVC PRN (02:19)
[2019-04-16] MEDS: Albuterol 2.5 MG/3 ML NEBULIZER IH PRN (02:32)
[2019-04-16] MEDS: Azithromycin 500 MG in 0.9 % Sodium Chloride 250 ML IVPB SCH (02:35)
[2019-04-16] MEDS: Ipratropium/Albuterol Neb 3 ML IH SCH ×4 (03:50→20:35)
[2019-04-16] MEDS: MethylPREDNISolone 40 MG/ML VIAL IVP SCH ×4 (05:25→23:41)
[2019-04-16 07:43] LABS: Hematocrit 43.8 % (37.5-50.1); Hemoglobin 14.2 g/dL (12.9-16.9); Mean Corpuscular HGB Conc 32.4 g/dL (31.6-35.5); Mean Corpuscular Hemoglobin 31.3 pg (28.0-33.3); Mean Corpuscular Volume 96.7 fL (83.0-100.0); Mean Platelet Volume 10.8 fL (9.4-12.4); Platelet Count 205 K/mcL (140-400); Red Blood Count 4.53 M/mcL (4.19-5.50); Red Cell Distribution Width 13.8 % (11.5-14.5); White Blood Count 10.4 K/mcL (4.3-11.1)
[2019-04-16 08:27] LABS: BUN/Creatinine Ratio 20 (6-26); Blood Urea Nitrogen 18 mg/dL (8-23); Calcium 8.5 mg/dL (8.6-10.3); Carbon Dioxide 26 mEq/L (23-29); Chloride 106 mEq/L (98-107); Glucose 172 mg/dL (70-105); Osmolality,Calculated 296 (280-300); Potassium 3.9 mEq/L (3.5-5.1); Sodium 140 mEq/L (136-145); eGFR For African Americans > 60 (> 60); eGFR For Non-African Americans > 60 (> 60)
[2019-04-16] MEDS: Insulin LISPRO 300 UNITS/3 ML VIAL SQ SCH ×4 (08:43→20:13)
[2019-04-16] MEDS: Sennosides/Docusate Sodium TABLET PO SCH (09:10)
[2019-04-16] MEDS: amLODIPine 5 MG TABLET PO SCH (09:10)
[2019-04-16] MEDS: Loratadine 10 MG TABLET PO SCH (09:10)
[2019-04-16] MEDS: Gabapentin 300 MG CAPSULE PO SCH ×3 (09:10→20:15)
[2019-04-16] MEDS: Furosemide 40 MG TABLET PO SCH ×2 (09:11→16:28)
[2019-04-16] MEDS: Benzonatate 100 MG CAPSULE PO PRN (09:13)
[2019-04-16] MEDS: Fluticasone Propionate Nasal 50 MCG/SPRAY BOTTLE NS SCH (09:27)
[2019-04-16] MEDS: Famotidine 20 MG TABLET PO SCH ×2 (09:28→16:28)
[2019-04-16] MEDS: Budesonide/Formoterol 160/4.5 1 PUFF INH IH SCH ×2 (09:45→20:35)
[2019-04-16] MEDS: Insulin DETEMIR 100 UNIT/ML X5UNITS SQ SCH ×2 (10:40→21:48)
[2019-04-16] MEDS: *HR* Heparin 5,000 UNIT/ML VIAL SQ SCH (16:28)
[2019-04-16] MEDS: Finasteride 5 MG TABLET PO SCH (20:15)
[2019-04-16] MEDS ORDERED: Insulin DETEMIR 100 UNIT/ML X5UNITS SQ SCH (21:30)
[2019-04-17] MEDS: Azithromycin 500 MG in 0.9 % Sodium Chloride 250 ML IVPB SCH (02:40)
[2019-04-17] MEDS: Ipratropium/Albuterol Neb 3 ML IH SCH ×5 (03:57→23:28)
[2019-04-17] MEDS: MethylPREDNISolone 40 MG/ML VIAL IVP SCH ×4 (05:18→23:30)
[2019-04-17] MEDS: *HR* Heparin 5,000 UNIT/ML VIAL SQ SCH ×2 (05:18→17:33)
[2019-04-17] MEDS: Insulin LISPRO 300 UNITS/3 ML VIAL SQ SCH ×4 (09:13→20:46)
[2019-04-17] MEDS: Furosemide 40 MG TABLET PO SCH ×2 (09:15→17:37)
[2019-04-17] MEDS: Loratadine 10 MG TABLET PO SCH (09:15)
[2019-04-17] MEDS: Famotidine 20 MG TABLET PO SCH ×2 (09:15→15:27)
[2019-04-17] MEDS: Sennosides/Docusate Sodium TABLET PO SCH (09:16)
[2019-04-17] MEDS: Fluticasone Propionate Nasal 50 MCG/SPRAY BOTTLE NS SCH (09:16)
[2019-04-17] MEDS: Gabapentin 300 MG CAPSULE PO SCH ×3 (09:16→20:46)
[2019-04-17] MEDS: amLODIPine 5 MG TABLET PO SCH (09:16)
[2019-04-17] MEDS: Insulin DETEMIR 100 UNIT/ML X5UNITS SQ SCH ×2 (09:25→20:47)
[2019-04-17] MEDS: Budesonide/Formoterol 160/4.5 1 PUFF INH IH SCH ×2 (10:25→20:01)
[2019-04-17] MEDS: Benzonatate 100 MG CAPSULE PO PRN (12:26)
[2019-04-17] MEDS: Finasteride 5 MG TABLET PO SCH (20:46)
[2019-04-18] MEDS: Azithromycin 500 MG in 0.9 % Sodium Chloride 250 ML IVPB SCH (02:56)
[2019-04-18 03:42] LABS: Basophils % 0.1 %; Hemoglobin 14.5 g/dL (12.9-16.9); Immature Granulocytes % 0.7 % (0-4); Lymphocytes # 0.7 K/mcL (0.6-4.6); Lymphocytes % 5.1 %; Mean Corpuscular HGB Conc 34.5 g/dL (31.6-35.5); Mean Corpuscular Hemoglobin 31.8 pg (28.0-33.3); Mean Corpuscular Volume 92.1 fL (83.0-100.0); Mean Platelet Volume 11.1 fL (9.4-12.4); Monocytes # 0.5 K/mcL (0.0-1.3); Monocytes % 3.3 %; Neutrophils # 12.3 K/mcL (1.6-8.9); Platelet Count 235 K/mcL (140-400); Red Blood Count 4.56 M/mcL (4.19-5.50); Red Cell Distribution Width 13.4 % (11.5-14.5); Segmented Neutrophils % 90.8 %; White Blood Count 13.6 K/mcL (4.3-11.1)
[2019-04-18] MEDS: Ipratropium/Albuterol Neb 3 ML IH SCH ×6 (04:02→23:21)
[2019-04-18 04:04] LABS: BUN/Creatinine Ratio 25 (6-26); Blood Urea Nitrogen 28 mg/dL (8-23); Calcium 8.6 mg/dL (8.6-10.3); Carbon Dioxide 24 mEq/L (23-29); Chloride 104 mEq/L (98-107); Glucose 233 mg/dL (70-105); Osmolality,Calculated 297 (280-300); Potassium 4.6 mEq/L (3.5-5.1); Sodium 137 mEq/L (136-145); eGFR For African Americans > 60 (> 60); eGFR For Non-African Americans > 60 (> 60)
[2019-04-18] MEDS: MethylPREDNISolone 40 MG/ML VIAL IVP SCH ×4 (05:14→23:39)
[2019-04-18] MEDS: *HR* Heparin 5,000 UNIT/ML VIAL SQ SCH ×2 (05:14→18:39)
[2019-04-18] MEDS: Albuterol 2.5 MG/3 ML NEBULIZER IH PRN (05:37)
[2019-04-18] MEDS: Budesonide/Formoterol 160/4.5 1 PUFF INH IH SCH ×2 (07:21→23:21)
[2019-04-18] MEDS ORDERED: Ipratropium/Albuterol Neb 3 ML IH ONE (07:55)
[2019-04-18] MEDS: amLODIPine 5 MG TABLET PO SCH (08:03)
[2019-04-18] MEDS: Famotidine 20 MG TABLET PO SCH ×2 (08:04→16:15)
[2019-04-18] MEDS: Furosemide 40 MG TABLET PO SCH ×2 (08:04→16:15)
[2019-04-18] MEDS: Gabapentin 300 MG CAPSULE PO SCH ×3 (08:04→20:50)
[2019-04-18] MEDS: Loratadine 10 MG TABLET PO SCH (08:04)
[2019-04-18] MEDS: Sennosides/Docusate Sodium TABLET PO SCH (08:04)
[2019-04-18] MEDS: Insulin DETEMIR 100 UNIT/ML X5UNITS SQ SCH ×2 (08:05→21:44)
[2019-04-18] MEDS: Insulin LISPRO 300 UNITS/3 ML VIAL SQ SCH ×4 (08:07→21:44)
[2019-04-18] MEDS: Fluticasone Propionate Nasal 50 MCG/SPRAY BOTTLE NS SCH (08:08)
[2019-04-18] MEDS ORDERED: Perflutren Lipid Microsphere 2 ML VIAL ONE (08:59)
[2019-04-18] MEDS ORDERED: Perflutren Lipid Microsphere 1.3 ML in 0.9 % Sodium Chloride 8.7 ML IVP ONE (09:01)
[2019-04-18] MEDS: Finasteride 5 MG TABLET PO SCH (20:50)
[2019-04-18] MEDS: Benzonatate 100 MG CAPSULE PO PRN (23:39)
[2019-04-19] MEDS ORDERED: Albuterol 2.5 MG/3 ML NEBULIZER IH ONE (00:23)
[2019-04-19] MEDS: Azithromycin 500 MG in 0.9 % Sodium Chloride 250 ML IVPB SCH (03:16)
[2019-04-19] MEDS: Ipratropium/Albuterol Neb 3 ML IH SCH ×7 (03:32→23:50)
[2019-04-19] MEDS: *HR* Heparin 5,000 UNIT/ML VIAL SQ SCH ×2 (06:06→18:35)
[2019-04-19] MEDS: MethylPREDNISolone 40 MG/ML VIAL IVP SCH ×3 (06:06→18:35)
[2019-04-19] MEDS: Budesonide/Formoterol 160/4.5 1 PUFF INH IH SCH ×2 (07:40→19:41)
[2019-04-19] MEDS: Insulin DETEMIR 100 UNIT/ML X5UNITS SQ SCH ×2 (08:58→20:04)
[2019-04-19] MEDS: Sennosides/Docusate Sodium TABLET PO SCH (08:59)
[2019-04-19] MEDS: Furosemide 40 MG TABLET PO SCH ×2 (08:59→18:34)
[2019-04-19] MEDS: amLODIPine 5 MG TABLET PO SCH (08:59)
[2019-04-19] MEDS: Gabapentin 300 MG CAPSULE PO SCH ×3 (08:59→20:04)
[2019-04-19] MEDS: Famotidine 20 MG TABLET PO SCH ×2 (09:00→15:57)
[2019-04-19] MEDS: Loratadine 10 MG TABLET PO SCH (09:00)
[2019-04-19] MEDS: Insulin LISPRO 300 UNITS/3 ML VIAL SQ SCH ×4 (09:06→20:06)
[2019-04-19] MEDS: Fluticasone Propionate Nasal 50 MCG/SPRAY BOTTLE NS SCH (09:07)
[2019-04-19] MEDS: Cefepime HCl 1,000 MG in 0.9 % Sodium Chloride Mini Bag 100 ML IVPB SCH ×2 (11:01→18:35)
[2019-04-19] MEDS ORDERED: Ipratropium/Albuterol Neb 3 ML IH PRN (13:12)
[2019-04-19] MEDS: Finasteride 5 MG TABLET PO SCH (20:04)
[2019-04-20] MEDS: MethylPREDNISolone 40 MG/ML VIAL IVP SCH ×5 (00:47→23:18)
[2019-04-20] MEDS: Ipratropium/Albuterol Neb 3 ML IH SCH ×6 (03:32→23:45)
[2019-04-20 04:20] LABS: Basophils % 0.2 %; Hematocrit 43.4 % (37.5-50.1); Hemoglobin 14.1 g/dL (12.9-16.9); Immature Granulocytes % 1.2 % (0-4); Lymphocytes # 0.6 K/mcL (0.6-4.6); Lymphocytes % 5.2 %; Mean Corpuscular HGB Conc 32.5 g/dL (31.6-35.5); Mean Corpuscular Hemoglobin 31.1 pg (28.0-33.3); Mean Corpuscular Volume 95.8 fL (83.0-100.0); Mean Platelet Volume 11.2 fL (9.4-12.4); Monocytes # 0.5 K/mcL (0.0-1.3); Monocytes % 4.2 %; Neutrophils # 10.8 K/mcL (1.6-8.9); Platelet Count 198 K/mcL (140-400); Red Blood Count 4.53 M/mcL (4.19-5.50); Red Cell Distribution Width 13.5 % (11.5-14.5); Segmented Neutrophils % 89.2 %; White Blood Count 12.1 K/mcL (4.3-11.1)
[2019-04-20 04:39] LABS: BUN/Creatinine Ratio 26 (6-26); Blood Urea Nitrogen 29 mg/dL (8-23); Calcium 8.6 mg/dL (8.6-10.3); Carbon Dioxide 22 mEq/L (23-29); Chloride 108 mEq/L (98-107); Glucose 191 mg/dL (70-105); Osmolality,Calculated 297 (280-300); Potassium 4.6 mEq/L (3.5-5.1); Sodium 138 mEq/L (136-145); eGFR For African Americans > 60 (> 60); eGFR For Non-African Americans > 60 (> 60)
[2019-04-20] MEDS: *HR* Heparin 5,000 UNIT/ML VIAL SQ SCH ×2 (06:26→17:11)
[2019-04-20] MEDS: Cefepime HCl 1,000 MG in 0.9 % Sodium Chloride Mini Bag 100 ML IVPB SCH ×2 (06:26→17:12)
[2019-04-20] MEDS: Budesonide/Formoterol 160/4.5 1 PUFF INH IH SCH ×2 (07:40→19:46)
[2019-04-20] MEDS: Fluticasone Propionate Nasal 50 MCG/SPRAY BOTTLE NS SCH (08:02)
[2019-04-20] MEDS: Famotidine 20 MG TABLET PO SCH ×2 (08:02→17:06)
[2019-04-20] MEDS: Loratadine 10 MG TABLET PO SCH (08:02)
[2019-04-20] MEDS: Sennosides/Docusate Sodium TABLET PO SCH (08:03)
[2019-04-20] MEDS: Gabapentin 300 MG CAPSULE PO SCH ×3 (08:03→20:05)
[2019-04-20] MEDS: Furosemide 40 MG TABLET PO SCH ×2 (08:04→17:06)
[2019-04-20] MEDS: amLODIPine 5 MG TABLET PO SCH (08:04)
[2019-04-20] MEDS: Insulin LISPRO 300 UNITS/3 ML VIAL SQ SCH ×5 (08:06→21:09)
[2019-04-20] MEDS: Insulin DETEMIR 100 UNIT/ML X5UNITS SQ SCH ×2 (08:07→21:10)
[2019-04-20] MEDS: Finasteride 5 MG TABLET PO SCH (20:05)
[2019-04-20 20:11] LABS: Adenovirus Not Detected (Not Detect); Bordetella Pertussis Not Detected (Not Detect); Chlamydophila pneumoniae Not Detected (Not Detect); Coronavirus 229E Not Detected (Not Detect); Coronavirus HKU1 Not Detected (Not Detect); Coronavirus NL63 Not Detected (Not Detect); Coronavirus OC43 Not Detected (Not Detect); Human Metapneumovirus Not Detected (Not Detect); Human Rhinovirus/Enterovirus Not Detected (Not Detect); Influenza A Subtype 2009 H1 Not Detected (Not Detect); Influenza A Untypeable Not Detected (Not Detect); Influenza B Not Detected (Not Detect); Mycoplasma pneumoniae Not Detected (Not Detect); Parainfluenza Virus 1 Not Detected (Not Detect); Parainfluenza Virus 2 Not Detected (Not Detect); Parainfluenza Virus 3 Not Detected (Not Detect); Parainfluenza Virus 4 Not Detected (Not Detect); Respiratory Syncytial Virus Not Detected (Not Detect)
[2019-04-21 02:26] LABS: BUN/Creatinine Ratio 27 (6-26); Blood Urea Nitrogen 29 mg/dL (8-23); Calcium 8.4 mg/dL (8.6-10.3); Carbon Dioxide 23 mEq/L (23-29); Chloride 105 mEq/L (98-107); Glucose 191 mg/dL (70-105); Osmolality,Calculated 293 (280-300); Potassium 4.3 mEq/L (3.5-5.1); Sodium 136 mEq/L (136-145); eGFR For African Americans > 60 (> 60); eGFR For Non-African Americans > 60 (> 60)
[2019-04-21] MEDS: Ipratropium/Albuterol Neb 3 ML IH SCH ×6 (03:48→23:05)
[2019-04-21] MEDS: *HR* Heparin 5,000 UNIT/ML VIAL SQ SCH ×2 (05:36→18:28)
[2019-04-21] MEDS: Cefepime HCl 1,000 MG in 0.9 % Sodium Chloride Mini Bag 100 ML IVPB SCH ×2 (05:36→18:29)
[2019-04-21] MEDS: MethylPREDNISolone 40 MG/ML VIAL IVP SCH ×3 (05:36→23:44)
[2019-04-21] MEDS: Budesonide/Formoterol 160/4.5 1 PUFF INH IH SCH ×2 (07:13→19:50)
[2019-04-21] MEDS: Loratadine 10 MG TABLET PO SCH (09:24)
[2019-04-21] MEDS: amLODIPine 5 MG TABLET PO SCH (09:24)
[2019-04-21] MEDS: Sennosides/Docusate Sodium TABLET PO SCH (09:24)
[2019-04-21] MEDS: Gabapentin 300 MG CAPSULE PO SCH ×3 (09:24→19:43)
[2019-04-21] MEDS: Fluticasone Propionate Nasal 50 MCG/SPRAY BOTTLE NS SCH (09:25)
[2019-04-21] MEDS: Furosemide 40 MG TABLET PO SCH ×2 (09:25→18:28)
[2019-04-21] MEDS: Insulin DETEMIR 100 UNIT/ML X5UNITS SQ SCH ×2 (09:25→19:43)
[2019-04-21] MEDS: Insulin LISPRO 300 UNITS/3 ML VIAL SQ SCH ×4 (09:25→19:42)
[2019-04-21] MEDS: Famotidine 20 MG TABLET PO SCH ×2 (09:25→18:28)
[2019-04-21] MEDS: Finasteride 5 MG TABLET PO SCH (19:43)
[2019-04-21] MEDS: Benzonatate 100 MG CAPSULE PO PRN (19:43)
[2019-04-22 03:04] LABS: BUN/Creatinine Ratio 25 (6-26); Blood Urea Nitrogen 27 mg/dL (8-23); Calcium 8.5 mg/dL (8.6-10.3); Carbon Dioxide 25 mEq/L (23-29); Chloride 102 mEq/L (98-107); Glucose 195 mg/dL (70-105); Osmolality,Calculated 292 (280-300); Potassium 4.7 mEq/L (3.5-5.1); Sodium 136 mEq/L (136-145); eGFR For African Americans > 60 (> 60); eGFR For Non-African Americans > 60 (> 60)
[2019-04-22] MEDS: Ipratropium/Albuterol Neb 3 ML IH SCH ×6 (03:18→23:36)
[2019-04-22] MEDS: Cefepime HCl 1,000 MG in 0.9 % Sodium Chloride Mini Bag 100 ML IVPB SCH ×2 (05:21→17:20)
[2019-04-22] MEDS: *HR* Heparin 5,000 UNIT/ML VIAL SQ SCH ×2 (05:21→18:20)
[2019-04-22] MEDS: Budesonide/Formoterol 160/4.5 1 PUFF INH IH SCH ×2 (07:40→20:35)
[2019-04-22] MEDS: Sennosides/Docusate Sodium TABLET PO SCH (08:49)
[2019-04-22] MEDS: Fluticasone Propionate Nasal 50 MCG/SPRAY BOTTLE NS SCH (08:49)
[2019-04-22] MEDS: MethylPREDNISolone 40 MG/ML VIAL IVP SCH ×2 (08:49→17:20)
[2019-04-22] MEDS: Famotidine 20 MG TABLET PO SCH ×2 (08:50→17:20)
[2019-04-22] MEDS: Gabapentin 300 MG CAPSULE PO SCH ×3 (08:50→21:22)
[2019-04-22] MEDS: Furosemide 40 MG TABLET PO SCH ×2 (08:50→17:20)
[2019-04-22] MEDS: amLODIPine 5 MG TABLET PO SCH (08:50)
[2019-04-22] MEDS: Insulin DETEMIR 100 UNIT/ML X5UNITS SQ SCH ×2 (08:53→21:24)
[2019-04-22] MEDS: Insulin LISPRO 300 UNITS/3 ML VIAL SQ SCH ×4 (08:53→21:31)
[2019-04-22] MEDS: Loratadine 10 MG TABLET PO SCH (08:54)
[2019-04-22] MEDS: Benzonatate 100 MG CAPSULE PO PRN ×2 (08:57→14:11)
[2019-04-22] MEDS: Finasteride 5 MG TABLET PO SCH (21:22)
[2019-04-23] MEDS: MethylPREDNISolone 40 MG/ML VIAL IVP SCH ×3 (01:20→17:10)
[2019-04-23] MEDS: Ipratropium/Albuterol Neb 3 ML IH SCH ×6 (04:19→20:42)
[2019-04-23] MEDS: Cefepime HCl 1,000 MG in 0.9 % Sodium Chloride Mini Bag 100 ML IVPB SCH (05:45)
[2019-04-23] MEDS: *HR* Heparin 5,000 UNIT/ML VIAL SQ SCH ×2 (05:45→17:10)
[2019-04-23 07:02] LABS: BUN/Creatinine Ratio 28 (6-26); Blood Urea Nitrogen 25 mg/dL (8-23); Carbon Dioxide 24 mEq/L (23-29); Chloride 103 mEq/L (98-107); Glucose 191 mg/dL (70-105); Osmolality,Calculated 288 (280-300); Potassium 4.6 mEq/L (3.5-5.1); Sodium 134 mEq/L (136-145); eGFR For African Americans > 60 (> 60); eGFR For Non-African Americans > 60 (> 60)
[2019-04-23] MEDS: Budesonide/Formoterol 160/4.5 1 PUFF INH IH SCH ×2 (08:21→20:39)
[2019-04-23] MEDS: Famotidine 20 MG TABLET PO SCH ×2 (10:23→17:10)
[2019-04-23] MEDS: Furosemide 40 MG TABLET PO SCH ×2 (10:23→17:10)
[2019-04-23] MEDS: amLODIPine 5 MG TABLET PO SCH (10:23)
[2019-04-23] MEDS: Sennosides/Docusate Sodium TABLET PO SCH (10:23)
[2019-04-23] MEDS: Loratadine 10 MG TABLET PO SCH (10:24)
[2019-04-23] MEDS: Gabapentin 300 MG CAPSULE PO SCH ×3 (10:24→22:29)
[2019-04-23] MEDS: Insulin LISPRO 300 UNITS/3 ML VIAL SQ SCH ×4 (10:25→22:30)
[2019-04-23] MEDS: Fluticasone Propionate Nasal 50 MCG/SPRAY BOTTLE NS SCH (10:25)
[2019-04-23] MEDS: Insulin DETEMIR 100 UNIT/ML X5UNITS SQ SCH ×2 (10:27→22:29)
[2019-04-23] MEDS: Finasteride 5 MG TABLET PO SCH (22:28)
[2019-04-24] MEDS: Ipratropium/Albuterol Neb 3 ML IH SCH ×4 (01:12→11:22)
[2019-04-24] MEDS: MethylPREDNISolone 40 MG/ML VIAL IVP SCH ×2 (01:14→10:29)
[2019-04-24] MEDS: Benzonatate 100 MG CAPSULE PO PRN ×2 (01:14→10:27)
[2019-04-24 03:13] LABS: BUN/Creatinine Ratio 31 (6-26); Blood Urea Nitrogen 28 mg/dL (8-23); Calcium 8.2 mg/dL (8.6-10.3); Carbon Dioxide 23 mEq/L (23-29); Chloride 105 mEq/L (98-107); Glucose 184 mg/dL (70-105); Osmolality,Calculated 288 (280-300); Potassium 4.3 mEq/L (3.5-5.1); Sodium 134 mEq/L (136-145); eGFR For African Americans > 60 (> 60); eGFR For Non-African Americans > 60 (> 60)
[2019-04-24] MEDS: *HR* Heparin 5,000 UNIT/ML VIAL SQ SCH (06:06)
[2019-04-24 07:20] VITALS: BP 129/84
[2019-04-24] MEDS: Budesonide/Formoterol 160/4.5 1 PUFF INH IH SCH (07:33)
[2019-04-24] MEDS: Insulin LISPRO 300 UNITS/3 ML VIAL SQ SCH (10:26)
[2019-04-24] MEDS: Sennosides/Docusate Sodium TABLET PO SCH (10:27)
[2019-04-24] MEDS: Famotidine 20 MG TABLET PO SCH (10:27)
[2019-04-24] MEDS: Furosemide 40 MG TABLET PO SCH (10:27)
[2019-04-24] MEDS: Loratadine 10 MG TABLET PO SCH (10:28)
[2019-04-24] MEDS: amLODIPine 5 MG TABLET PO SCH (10:28)
[2019-04-24] MEDS: Gabapentin 300 MG CAPSULE PO SCH (10:29)
[2019-04-24] MEDS: Fluticasone Propionate Nasal 50 MCG/SPRAY BOTTLE NS SCH (10:29)
[2019-04-24] MEDS: Insulin DETEMIR 100 UNIT/ML X5UNITS SQ SCH (10:37)
[2019-04-24] MEDS ORDERED: FLU Vac QV 19-20 (6Month+)/PF 0.5 ML SYRINGE IM ONE (12:24)
== END 2019-04-24 14:12 | disposition home or self-care (01) | DRG 202 ==
LOC: EMEROOARM 16:12 → 2NENU 16:12 → SUATTDRO 19:05 → 2NENU 20:00 → SUATTDRO 04-17 13:42
PROVIDERS: ADMIT Internal Medicine; ATTEND Student in an Organized Health Care Education/Training Program

== ENCOUNTER 2020-05-27 11:46 | Inpatient (IN) ==
[2020-05-27 12:16] LABS: Basophils # 0.1 K/mcL (0.0-0.2); Basophils % 0.4 %; Eosinophils # 0.1 K/mcL (0.0-0.6); Eosinophils % 0.8 %; Hematocrit 45.2 % (37.5-50.1); Hemoglobin 14.9 g/dL (12.9-16.9); Immature Granulocytes % 1.1 % (0-4); Lymphocytes # 0.7 K/mcL (0.6-4.6); Lymphocytes % 5.4 %; Mean Corpuscular Hemoglobin 30.2 pg (28.0-33.3); Mean Corpuscular Volume 91.5 fL (83.0-100.0); Mean Platelet Volume 9.7 fL (9.4-12.4); Monocytes # 0.7 K/mcL (0.0-1.3); Monocytes % 5.4 %; Platelet Count 213 K/mcL (140-400); Red Blood Count 4.94 M/mcL (4.19-5.50); Red Cell Distribution Width 14.1 % (11.5-14.5); Segmented Neutrophils % 86.9 %; White Blood Count 13.8 K/mcL (4.3-11.1)
[2020-05-27 12:23] LABS: INR 1.1; Prothrombin Time 12.6 Seconds (9.4-12.1)
[2020-05-27] MEDS ORDERED: Dexamethasone 4 MG/ML VIAL IVP ONE (12:28)
[2020-05-27] MEDS ORDERED: Ipratropium/Albuterol Neb 3 ML IH ONE (12:28)
[2020-05-27 12:40] LABS: BUN/Creatinine Ratio 15 (6-26); Blood Urea Nitrogen 15 mg/dL (8-23); Calcium 9.2 mg/dL (8.6-10.3); Carbon Dioxide 23 mEq/L (23-29); Chloride 101 mEq/L (98-107); Glucose 262 mg/dL (70-105); Osmolality,Calculated 290 (280-300); Potassium 4.8 mEq/L (3.5-5.1); Sodium 135 mEq/L (136-145); Troponin I 0.25 ng/mL (< 0.04); eGFR For African Americans > 60 (> 60); eGFR For Non-African Americans > 60 (> 60)
[2020-05-27 14:01] LABS: Adenovirus Not Detected (Not Detect); Coronavirus 229E Not Detected (Not Detect); Coronavirus HKU1 Not Detected (Not Detect); Coronavirus NL63 Not Detected (Not Detect); Coronavirus OC43 Not Detected (Not Detect); SARS-CoV-2 Not Detected (Not Detect)
[2020-05-27 14:02] LABS: Bordetella Pertussis Not Detected (Not Detect); Chlamydophila pneumoniae Not Detected (Not Detect); Human Metapneumovirus Not Detected (Not Detect); Human Rhinovirus/Enterovirus Not Detected (Not Detect); Influenza A Subtype 2009 H1 Not Detected (Not Detect); Influenza B Not Detected (Not Detect); Mycoplasma pneumoniae Not Detected (Not Detect); Parainfluenza Virus 1 Not Detected (Not Detect); Parainfluenza Virus 2 Not Detected (Not Detect); Parainfluenza Virus 3 Not Detected (Not Detect); Parainfluenza Virus 4 Not Detected (Not Detect); Respiratory Syncytial Virus Not Detected (Not Detect)
[2020-05-27] MEDS ORDERED: Aspirin 325 MG TABLET PO ONE (14:11)
[2020-05-27] MEDS ORDERED: Nitroglycerin 0.4 MG TAB.SUBL SL PRN (14:11)
[2020-05-27] MEDS ORDERED: *HR* Heparin 5,000 UNIT/ML VIAL IVP ONE (14:11)
[2020-05-27] MEDS ORDERED: *HR* Heparin 5,000 UNIT/ML VIAL IVP PRN (14:11)
[2020-05-27] MEDS ORDERED: Naloxone 0.4 MG/ML INJ IVP PRN (14:38)
[2020-05-27] MEDS ORDERED: Acetaminophen 325 MG TABLET PO PRN (14:38)
[2020-05-27] MEDS ORDERED: Ondansetron ODT 4 MG TAB.RAPDIS SL PRN (14:38)
[2020-05-27] MEDS ORDERED: D5% in Water 1,000 ML IVC PRN (14:45)
[2020-05-27] MEDS ORDERED: Dextrose Gel 15 GM/37.5 ML TUBE PO PRN ×2 (14:45)
[2020-05-27] MEDS ORDERED: *HR* Dextrose 50 % in Water (Vial) 50 ML VIAL IVP PRN (14:45)
[2020-05-27] MEDS ORDERED: Perflutren Lipid Microsphere 1.3 ML in 0.9 % Sodium Chloride 8.7 ML IVP PRN (14:46)
[2020-05-27] MEDS: Heparin 25,000UNIT/250ML 1/2NS 25,000 UNIT/250 ML IV.SOLN IVC SCH (15:53)
[2020-05-27 15:59] LABS: Hematocrit 43.4 % (37.5-50.1); Hemoglobin 14.6 g/dL (12.9-16.9); Mean Corpuscular HGB Conc 33.6 g/dL (31.6-35.5); Mean Corpuscular Hemoglobin 30.2 pg (28.0-33.3); Mean Corpuscular Volume 89.9 fL (83.0-100.0); Mean Platelet Volume 9.6 fL (9.4-12.4); Platelet Count 200 K/mcL (140-400); Red Blood Count 4.83 M/mcL (4.19-5.50); Red Cell Distribution Width 14.1 % (11.5-14.5); White Blood Count 11.7 K/mcL (4.3-11.1)
[2020-05-27 16:10] LABS: Prothrombin Time 12.1 Seconds (9.4-12.1)
[2020-05-27 16:12] LABS: Heparin anti-factor XA UFH < 0.04 IU/mL (0.30-0.70)
[2020-05-27] MEDS: Insulin LISPRO 300 UNITS/3 ML VIAL SQ SCH ×2 (16:56→21:25)
[2020-05-27] MEDS ORDERED: levoFLOXacin 500 MG/100 ML 500 MG/100 ML BAG IVPB SCH (17:00)
[2020-05-27] MEDS: Ipratropium/Albuterol Neb 3 ML IH PRN (21:11)
[2020-05-27] MEDS: MethylPREDNISolone 40 MG/ML VIAL IVP SCH (23:44)
[2020-05-28] MEDS: *HR* Heparin 5,000 UNIT/ML VIAL IVP PRN ×2 (00:19→13:17)
[2020-05-28 03:22] LABS: Basophils % 0.2 %; Hemoglobin 14.2 g/dL (12.9-16.9); Immature Granulocytes % 1.1 % (0-4); Lymphocytes # 0.6 K/mcL (0.6-4.6); Lymphocytes % 4.9 %; Mean Corpuscular Hemoglobin 30.5 pg (28.0-33.3); Mean Corpuscular Volume 92.3 fL (83.0-100.0); Mean Platelet Volume 10.2 fL (9.4-12.4); Monocytes # 0.4 K/mcL (0.0-1.3); Monocytes % 3.2 %; Neutrophils # 10.7 K/mcL (1.6-8.9); Platelet Count 228 K/mcL (140-400); Red Blood Count 4.66 M/mcL (4.19-5.50); Red Cell Distribution Width 13.9 % (11.5-14.5); Segmented Neutrophils % 90.6 %; White Blood Count 11.7 K/mcL (4.3-11.1)
[2020-05-28] MEDS: Ipratropium/Albuterol Neb 3 ML IH PRN ×4 (03:25→20:03)
[2020-05-28 03:48] LABS: Alanine Aminotransferase 38 Units/L (7-52); Albumin 3.9 g/dL (3.5-5.7); Albumin/Globulin Ratio 1.8 (1.1-2.2); Alkaline Phosphatase 560 Units/L (34-104); Aspartate Amino Transferase 22 Units/L (13-39); BUN/Creatinine Ratio 22 (6-26); Bilirubin,Total 0.6 mg/dL (0.3-1.0); Blood Urea Nitrogen 21 mg/dL (8-23); Carbon Dioxide 21 mEq/L (23-29); Chloride 104 mEq/L (98-107); Chol/HDL Ratio 3.6 (0-4.9); Cholesterol 172 mg/dL (< 200); Globulin 2.2 g/dL (2.4-3.5); Glucose 189 mg/dL (70-105); HDL Cholesterol 48 mg/dL (40-59); LDL Cholesterol,Calculated 105 mg/dL (< 100); Magnesium 2.3 mg/dL (1.6-2.6); Osmolality,Calculated 290 (280-300); Potassium 4.9 mEq/L (3.5-5.1); Sodium 136 mEq/L (136-145); Total Protein 6.1 g/dL (6.4-8.9); Triglycerides 94 mg/dL (< 150); Troponin I 0.15 ng/mL (< 0.04); eGFR For African Americans > 60 (> 60); eGFR For Non-African Americans > 60 (> 60)
[2020-05-28] MEDS: MethylPREDNISolone 40 MG/ML VIAL IVP SCH ×3 (07:58→23:37)
[2020-05-28] MEDS: Insulin LISPRO 300 UNITS/3 ML VIAL SQ SCH ×4 (07:58→21:30)
[2020-05-28] MEDS: Aspirin 81 MG TAB.CHEW PO SCH (07:58)
[2020-05-28] MEDS ORDERED: GuaiFENesin/Dextromethorphan TABLET PO PRN (09:57)
[2020-05-28] MEDS ORDERED: Albuterol 2.5 MG/3 ML NEBULIZER IH ONE (11:01)
[2020-05-28] MEDS ORDERED: Isovue-370 500 ML BOTTLE IVP ONE ×2 (11:15→11:27)
[2020-05-28] MEDS: Benzonatate 100 MG CAPSULE PO PRN ×2 (11:30→21:30)
[2020-05-28] MEDS: Metoprolol XL (24 HR) Succ 25 MG TAB.ER.24H PO SCH (12:59)
[2020-05-28] MEDS: Heparin 25,000UNIT/250ML 1/2NS 25,000 UNIT/250 ML IV.SOLN IVC SCH (13:50)
[2020-05-28] MEDS: Doxycycline 100 MG in 0.9 % Sodium Chloride Mini Bag 100 ML IVPB SCH (16:31)
[2020-05-28] MEDS ORDERED: levoFLOXacin 750 MG/150 ML 750 MG/150 ML BAG IVPB SCH (18:00)
[2020-05-28] MEDS: Budesonide/Formoterol 160/4.5 1 PUFF INH IH SCH (20:04)
[2020-05-28] MEDS: Gabapentin 400 MG CAPSULE PO SCH (21:30)
[2020-05-28] MEDS: Finasteride 5 MG TABLET PO SCH (21:30)
[2020-05-28] MEDS: Furosemide 40 MG TABLET PO SCH (21:35)
[2020-05-28] MEDS: Meropenem 1,000 MG in 0.9 % Sodium Chloride Mini Bag 100 ML IVPB SCH (23:37)
[2020-05-29] MEDS: Ipratropium/Albuterol Neb 3 ML IH PRN (00:15)
[2020-05-29] MEDS: Doxycycline 100 MG in 0.9 % Sodium Chloride Mini Bag 100 ML IVPB SCH (05:20)
[2020-05-29] MEDS: Insulin LISPRO 300 UNITS/3 ML VIAL SQ SCH ×5 (07:26→21:05)
[2020-05-29] MEDS: Budesonide/Formoterol 160/4.5 1 PUFF INH IH SCH ×2 (07:35→19:58)
[2020-05-29] MEDS: Meropenem 1,000 MG in 0.9 % Sodium Chloride Mini Bag 100 ML IVPB SCH ×2 (09:05→17:26)
[2020-05-29 09:57] LABS: BUN/Creatinine Ratio 30 (6-26); Blood Urea Nitrogen 29 mg/dL (8-23); Calcium 8.8 mg/dL (8.6-10.3); Carbon Dioxide 20 mEq/L (23-29); Chloride 107 mEq/L (98-107); Glucose 247 mg/dL (70-105); Magnesium 2.5 mg/dL (1.6-2.6); Osmolality,Calculated 300 (280-300); Phosphorous 3.7 mg/dL (2.7-4.5); Potassium 4.4 mEq/L (3.5-5.1); Sodium 138 mEq/L (136-145); eGFR For African Americans > 60 (> 60); eGFR For Non-African Americans > 60 (> 60)
[2020-05-29 10:12] LABS: Basophils % 0.2 %; Hematocrit 42.4 % (37.5-50.1); Hemoglobin 14.2 g/dL (12.9-16.9); Immature Granulocytes % 1.1 % (0-4); Lymphocytes # 0.7 K/mcL (0.6-4.6); Lymphocytes % 5.3 %; Mean Corpuscular HGB Conc 33.5 g/dL (31.6-35.5); Mean Corpuscular Hemoglobin 30.3 pg (28.0-33.3); Mean Corpuscular Volume 90.4 fL (83.0-100.0); Mean Platelet Volume 10.1 fL (9.4-12.4); Monocytes # 0.7 K/mcL (0.0-1.3); Monocytes % 5.2 %; Neutrophils # 11.7 K/mcL (1.6-8.9); Platelet Count 230 K/mcL (140-400); Red Blood Count 4.69 M/mcL (4.19-5.50); Red Cell Distribution Width 14.1 % (11.5-14.5); Segmented Neutrophils % 88.2 %; White Blood Count 13.3 K/mcL (4.3-11.1)
[2020-05-29] MEDS ORDERED: Regadenoson 0.4 MG/5 ML SYRINGE IVP ONE (11:08)
[2020-05-29] MEDS: Furosemide 40 MG TABLET PO SCH ×2 (13:20→17:27)
[2020-05-29] MEDS: Aspirin 81 MG TAB.CHEW PO SCH (13:20)
[2020-05-29] MEDS: MethylPREDNISolone 40 MG/ML VIAL IVP SCH ×2 (13:21→17:25)
[2020-05-29] MEDS: amLODIPine 5 MG TABLET PO SCH (13:21)
[2020-05-29] MEDS: Metoprolol XL (24 HR) Succ 25 MG TAB.ER.24H PO SCH (13:21)
[2020-05-29] MEDS: Gabapentin 400 MG CAPSULE PO SCH ×3 (13:21→17:27)
[2020-05-29] MEDS: Loratadine 10 MG TABLET PO SCH (13:21)
[2020-05-29] MEDS: Fluticasone Propionate Nasal 50 MCG/SPRAY BOTTLE NS SCH (13:27)
[2020-05-29] MEDS: *HR* Heparin 5,000 UNIT/ML VIAL SQ SCH (17:25)
[2020-05-29] MEDS: Finasteride 5 MG TABLET PO SCH (21:01)
[2020-05-29] MEDS: Insulin DETEMIR 100 UNIT/ML X5UNITS SQ SCH (21:14)
[2020-05-30] MEDS: Meropenem 1,000 MG in 0.9 % Sodium Chloride Mini Bag 100 ML IVPB SCH ×4 (01:16→23:08)
[2020-05-30] MEDS: MethylPREDNISolone 40 MG/ML VIAL IVP SCH ×4 (01:17→23:08)
[2020-05-30 01:36] LABS: Basophils % 0.1 %; Hematocrit 44.6 % (37.5-50.1); Hemoglobin 14.7 g/dL (12.9-16.9); Immature Granulocytes % 0.9 % (0-4); Lymphocytes # 0.8 K/mcL (0.6-4.6); Lymphocytes % 5.8 %; Mean Corpuscular Hemoglobin 29.9 pg (28.0-33.3); Mean Corpuscular Volume 90.7 fL (83.0-100.0); Mean Platelet Volume 10.2 fL (9.4-12.4); Monocytes # 0.6 K/mcL (0.0-1.3); Monocytes % 4.1 %; Neutrophils # 12.2 K/mcL (1.6-8.9); Platelet Count 255 K/mcL (140-400); Red Blood Count 4.92 M/mcL (4.19-5.50); Red Cell Distribution Width 14.1 % (11.5-14.5); Segmented Neutrophils % 89.1 %; White Blood Count 13.7 K/mcL (4.3-11.1)
[2020-05-30 01:54] LABS: BUN/Creatinine Ratio 32 (6-26); Blood Urea Nitrogen 32 mg/dL (8-23); Calcium 8.5 mg/dL (8.6-10.3); Carbon Dioxide 22 mEq/L (23-29); Chloride 106 mEq/L (98-107); Glucose 235 mg/dL (70-105); Magnesium 2.5 mg/dL (1.6-2.6); Osmolality,Calculated 298 (280-300); Phosphorous 3.5 mg/dL (2.7-4.5); Potassium 4.7 mEq/L (3.5-5.1); Sodium 137 mEq/L (136-145); eGFR For African Americans > 60 (> 60); eGFR For Non-African Americans > 60 (> 60)
[2020-05-30] MEDS: *HR* Heparin 5,000 UNIT/ML VIAL SQ SCH ×2 (05:24→16:23)
[2020-05-30] MEDS: Furosemide 40 MG TABLET PO SCH ×2 (07:49→16:23)
[2020-05-30] MEDS: amLODIPine 5 MG TABLET PO SCH (07:49)
[2020-05-30] MEDS: Loratadine 10 MG TABLET PO SCH (07:49)
[2020-05-30] MEDS: Insulin DETEMIR 100 UNIT/ML X5UNITS SQ SCH ×2 (07:49→20:09)
[2020-05-30] MEDS: Metoprolol XL (24 HR) Succ 25 MG TAB.ER.24H PO SCH (07:49)
[2020-05-30] MEDS: Aspirin 81 MG TAB.CHEW PO SCH (07:49)
[2020-05-30] MEDS: Gabapentin 400 MG CAPSULE PO SCH ×3 (07:49→20:08)
[2020-05-30] MEDS: Fluticasone Propionate Nasal 50 MCG/SPRAY BOTTLE NS SCH (07:50)
[2020-05-30] MEDS: Insulin LISPRO 300 UNITS/3 ML VIAL SQ SCH ×7 (07:50→20:07)
[2020-05-30] MEDS: Budesonide/Formoterol 160/4.5 1 PUFF INH IH SCH ×2 (07:54→19:34)
[2020-05-30] MEDS: Ipratropium/Albuterol Neb 3 ML IH PRN (07:57)
[2020-05-30] MEDS: Ipratropium/Albuterol Neb 3 ML IH SCH ×4 (15:25→23:15)
[2020-05-30] MEDS ORDERED: NON-FORMULARY MEDICATION 1 EACH EACH (Alendronate Sodium [Fosamax] 70 MG) PO SCH (18:15)
[2020-05-30] MEDS: Finasteride 5 MG TABLET PO SCH (20:08)
[2020-05-31] MEDS: Ipratropium/Albuterol Neb 3 ML IH SCH ×5 (03:42→20:40)
[2020-05-31 05:20] LABS: Basophils % 0.2 %; Hematocrit 42.1 % (37.5-50.1); Immature Granulocytes % 0.9 % (0-4); Lymphocytes # 0.5 K/mcL (0.6-4.6); Lymphocytes % 4.1 %; Mean Corpuscular HGB Conc 33.3 g/dL (31.6-35.5); Mean Corpuscular Volume 93.1 fL (83.0-100.0); Mean Platelet Volume 10.2 fL (9.4-12.4); Monocytes # 0.6 K/mcL (0.0-1.3); Monocytes % 4.4 %; Neutrophils # 11.5 K/mcL (1.6-8.9); Platelet Count 221 K/mcL (140-400); Red Blood Count 4.52 M/mcL (4.19-5.50); Red Cell Distribution Width 13.9 % (11.5-14.5); Segmented Neutrophils % 90.4 %; White Blood Count 12.7 K/mcL (4.3-11.1)
[2020-05-31] MEDS: *HR* Heparin 5,000 UNIT/ML VIAL SQ SCH ×2 (05:26→20:12)
[2020-05-31 05:38] LABS: BUN/Creatinine Ratio 40 (6-26); Blood Urea Nitrogen 38 mg/dL (8-23); Calcium 7.8 mg/dL (8.6-10.3); Carbon Dioxide 23 mEq/L (23-29); Chloride 108 mEq/L (98-107); Glucose 206 mg/dL (70-105); Osmolality,Calculated 303 (280-300); Potassium 4.3 mEq/L (3.5-5.1); Sodium 139 mEq/L (136-145); eGFR For African Americans > 60 (> 60); eGFR For Non-African Americans > 60 (> 60)
[2020-05-31] MEDS: Insulin LISPRO 300 UNITS/3 ML VIAL SQ SCH ×7 (07:35→20:20)
[2020-05-31] MEDS: Furosemide 40 MG TABLET PO SCH ×2 (07:36→20:19)
[2020-05-31] MEDS: amLODIPine 5 MG TABLET PO SCH (07:36)
[2020-05-31] MEDS: Loratadine 10 MG TABLET PO SCH (07:36)
[2020-05-31] MEDS: Metoprolol XL (24 HR) Succ 25 MG TAB.ER.24H PO SCH (07:36)
[2020-05-31] MEDS: Aspirin 81 MG TAB.CHEW PO SCH (07:36)
[2020-05-31] MEDS: Gabapentin 400 MG CAPSULE PO SCH ×3 (07:36→20:19)
[2020-05-31] MEDS: Meropenem 1,000 MG in 0.9 % Sodium Chloride Mini Bag 100 ML IVPB SCH ×3 (07:37→23:36)
[2020-05-31] MEDS: Insulin DETEMIR 100 UNIT/ML X5UNITS SQ SCH ×2 (07:37→20:20)
[2020-05-31] MEDS: Fluticasone Propionate Nasal 50 MCG/SPRAY BOTTLE NS SCH (07:37)
[2020-05-31] MEDS: MethylPREDNISolone 40 MG/ML VIAL IVP SCH ×3 (07:37→23:35)
[2020-05-31] MEDS: Budesonide/Formoterol 160/4.5 1 PUFF INH IH SCH ×2 (08:14→20:40)
[2020-05-31] MEDS ORDERED: *HR* Propofol 200 MG/20 ML VIAL IVP ONE (18:08)
[2020-05-31] MEDS ORDERED: Lidocaine HCL 4 ML Topical Solution (Laryng-O-Jet Kit Sterile Pak) TP ONE (18:08)
[2020-05-31] MEDS ORDERED: Lidocaine -MPF 2% 2 ML VIAL ONE (18:08)
[2020-05-31] MEDS ORDERED: *HR* FentaNYL (PF) 100 MCG/2 ML VIAL ONE (18:09)
[2020-05-31] MEDS ORDERED: *HR* EPINEPHrine 1 MG/10 ML SYRINGE INTRATRACH PRN (18:27)
[2020-05-31] MEDS ORDERED: Ondansetron 4 MG/2 ML VIAL IVP PRN (19:00)
[2020-05-31] MEDS ORDERED: *HR* EPINEPHrine 1 MG/10 ML SYRINGE ONE (19:13)
[2020-05-31 19:41] LABS: Source of Body Fluid RLL BAL
[2020-05-31] MEDS: Finasteride 5 MG TABLET PO SCH (20:19)
[2020-06-01] MEDS: Ipratropium/Albuterol Neb 3 ML IH SCH ×4 (00:18→11:17)
[2020-06-01 00:32] LABS: Appearance of Body Fluid Cloudy (Clear); Volume of Body Fluid 25 mL
[2020-06-01] MEDS: *HR* Heparin 5,000 UNIT/ML VIAL SQ SCH (05:10)
[2020-06-01 05:14] LABS: Basophils % 0.2 %; Hematocrit 43.8 % (37.5-50.1); Immature Granulocytes % 0.9 % (0-4); Lymphocytes # 0.5 K/mcL (0.6-4.6); Lymphocytes % 3.9 %; Mean Corpuscular Volume 93.8 fL (83.0-100.0); Mean Platelet Volume 10.4 fL (9.4-12.4); Monocytes # 0.5 K/mcL (0.0-1.3); Monocytes % 4.2 %; Neutrophils # 10.5 K/mcL (1.6-8.9); Platelet Count 211 K/mcL (140-400); Red Blood Count 4.67 M/mcL (4.19-5.50); Red Cell Distribution Width 13.9 % (11.5-14.5); Segmented Neutrophils % 90.8 %; White Blood Count 11.5 K/mcL (4.3-11.1)
[2020-06-01 05:34] LABS: BUN/Creatinine Ratio 37 (6-26); Blood Urea Nitrogen 35 mg/dL (8-23); Calcium 7.9 mg/dL (8.6-10.3); Carbon Dioxide 22 mEq/L (23-29); Chloride 108 mEq/L (98-107); Glucose 322 mg/dL (70-105); Osmolality,Calculated 306 (280-300); Potassium 4.9 mEq/L (3.5-5.1); Sodium 138 mEq/L (136-145); eGFR For African Americans > 60 (> 60); eGFR For Non-African Americans > 60 (> 60)
[2020-06-01] MEDS: Budesonide/Formoterol 160/4.5 1 PUFF INH IH SCH (07:20)
[2020-06-01] MEDS: Loratadine 10 MG TABLET PO SCH (08:39)
[2020-06-01] MEDS: Furosemide 40 MG TABLET PO SCH (08:40)
[2020-06-01] MEDS: MethylPREDNISolone 40 MG/ML VIAL IVP SCH (08:40)
[2020-06-01] MEDS: Metoprolol XL (24 HR) Succ 25 MG TAB.ER.24H PO SCH (08:40)
[2020-06-01] MEDS: Aspirin 81 MG TAB.CHEW PO SCH (08:40)
[2020-06-01] MEDS: Gabapentin 400 MG CAPSULE PO SCH (08:40)
[2020-06-01] MEDS: amLODIPine 5 MG TABLET PO SCH (08:40)
[2020-06-01] MEDS: Meropenem 1,000 MG in 0.9 % Sodium Chloride Mini Bag 100 ML IVPB SCH (08:40)
[2020-06-01] MEDS: Insulin DETEMIR 100 UNIT/ML X5UNITS SQ SCH (08:41)
[2020-06-01] MEDS: Insulin LISPRO 300 UNITS/3 ML VIAL SQ SCH ×4 (08:41→11:33)
[2020-06-01] MEDS: Fluticasone Propionate Nasal 50 MCG/SPRAY BOTTLE NS SCH (08:41)
[2020-06-01 10:42] VITALS: BP 143/81
[2020-06-01 16:32] LABS: Serine Protease-3 Antibody 0 AU/mL (0-19)
[2020-06-01 17:26] LABS: A.galactomannan Ag Index 0.05
[2020-06-04 07:33] LABS: Influenza A PCR Body Fluid NOT DETECTED; Influenza B PCR Body Fluid NOT DETECTED; RVP Body Fluid Source BAL
[2020-06-04 09:22] LABS: RSV PCR Body Fluid NOT DETECTED
== END 2020-06-01 15:11 | disposition home or self-care (01) | DRG 280 ==
LOC: 2ANU 11:46 → EMEROOARM 11:46 → SUATTDRO 14:35 → 2ANU 16:11 → SUATTDRO 05-29 11:16
PROVIDERS: ADMIT Internal Medicine; ATTEND Family Medicine

== ENCOUNTER 2020-06-26 08:46 | Inpatient (IN) ==
[2020-06-26] MEDS ORDERED: Ondansetron 4 MG/2 ML VIAL IVP PRN (14:53)
[2020-06-26] MEDS ORDERED: Naloxone 0.4 MG/ML INJ IVP PRN (14:53)
[2020-06-26] MEDS ORDERED: Dextrose Gel 15 GM/37.5 ML TUBE PO PRN ×2 (14:59)
[2020-06-26] MEDS ORDERED: *HR* Dextrose 50 % in Water (Vial) 50 ML VIAL IVP PRN (14:59)
[2020-06-26] MEDS ORDERED: D5% in Water 1,000 ML IVC PRN (14:59)
[2020-06-26] MEDS: *HR* HYDROcodone/Acet 5/325 mg TABLET PO PRN (16:12)
[2020-06-26] MEDS: Insulin LISPRO 300 UNITS/3 ML VIAL SUBQ SCH (16:12)
[2020-06-26] MEDS: Gabapentin 400 MG CAPSULE PO SCH ×2 (16:12→20:46)
[2020-06-26] MEDS: Furosemide 40 MG TABLET PO SCH (16:12)
[2020-06-26 16:50] LABS: INR 1.2; Prothrombin Time 13.6 Seconds (9.4-12.1)
[2020-06-26 16:52] LABS: Activated Partial Thrombo Time 24.9 Seconds (26.0-36.0)
[2020-06-26 16:57] LABS: Basophils # 0.1 K/mcL (0.0-0.2); Basophils % 0.9 %; Eosinophils # 0.4 K/mcL (0.0-0.6); Eosinophils % 4.7 %; Hematocrit 38.5 % (37.5-50.1); Hemoglobin 12.5 g/dL (12.9-16.9); Immature Granulocytes % 2.5 % (0-4); Lymphocytes # 1.1 K/mcL (0.6-4.6); Mean Corpuscular HGB Conc 32.5 g/dL (31.6-35.5); Mean Corpuscular Hemoglobin 31.1 pg (28.0-33.3); Mean Corpuscular Volume 95.8 fL (83.0-100.0); Mean Platelet Volume 9.7 fL (9.4-12.4); Monocytes # 0.8 K/mcL (0.0-1.3); Monocytes % 9.8 %; Neutrophils # 5.8 K/mcL (1.6-8.9); Platelet Count 152 K/mcL (140-400); Red Blood Count 4.02 M/mcL (4.19-5.50); Red Cell Distribution Width 14.4 % (11.5-14.5); Segmented Neutrophils % 69.1 %; White Blood Count 8.5 K/mcL (4.3-11.1)
[2020-06-26] MEDS ORDERED: Nitroglycerin 0.4 MG TAB.SUBL SL PRN (16:57)
[2020-06-26 17:03] LABS: BUN/Creatinine Ratio 18 (6-26); Blood Urea Nitrogen 14 mg/dL (8-23); Calcium 8.7 mg/dL (8.6-10.3); Carbon Dioxide 26 mEq/L (23-29); Chloride 108 mEq/L (98-107); Glucose 154 mg/dL (70-105); Osmolality,Calculated 294 (280-300); Potassium 4.2 mEq/L (3.5-5.1); Sodium 140 mEq/L (136-145); eGFR For African Americans > 60 (> 60); eGFR For Non-African Americans > 60 (> 60)
[2020-06-26 17:08] LABS: Phosphorous 2.2 mg/dL (2.7-4.5)
[2020-06-26] MEDS: Ipratropium/Albuterol Neb 3 ML IH SCH ×3 (19:11→23:43)
[2020-06-26] MEDS: Budesonide/Formoterol 160/4.5 1 PUFF INH IH SCH (19:52)
[2020-06-26] MEDS: Finasteride 5 MG TABLET PO SCH (20:46)
[2020-06-26] MEDS: Insulin DETEMIR 100 UNIT/ML X5UNITS SUBQ SCH (20:46)
[2020-06-27] MEDS: Ipratropium/Albuterol Neb 3 ML IH SCH ×6 (03:41→23:26)
[2020-06-27] MEDS: Insulin DETEMIR 100 UNIT/ML X5UNITS SUBQ SCH ×2 (07:25→21:10)
[2020-06-27] MEDS: Budesonide/Formoterol 160/4.5 1 PUFF INH IH SCH ×2 (08:05→19:45)
[2020-06-27] MEDS: Insulin LISPRO 300 UNITS/3 ML VIAL SUBQ SCH ×3 (08:21→17:39)
[2020-06-27] MEDS: Metoprolol XL (24 HR) Succ 25 MG TAB.ER.24H PO SCH (09:39)
[2020-06-27] MEDS: Furosemide 40 MG TABLET PO SCH ×2 (09:39→15:22)
[2020-06-27] MEDS: Aspirin 81 MG TAB.CHEW PO SCH (09:39)
[2020-06-27] MEDS: Gabapentin 400 MG CAPSULE PO SCH ×3 (09:39→20:33)
[2020-06-27] MEDS: polyethylene glycoL 3350 17 GM POWD.PACK PO SCH (09:39)
[2020-06-27] MEDS: amLODIPine 5 MG TABLET PO SCH (09:39)
[2020-06-27] MEDS: Loratadine 10 MG TABLET PO SCH (09:40)
[2020-06-27] MEDS: predniSONE 10 MG TABLET PO SCH (09:40)
[2020-06-27] MEDS: *HR* HYDROcodone/Acet 5/325 mg TABLET PO PRN ×2 (09:41→23:15)
[2020-06-27] MEDS: Fluticasone Propionate Nasal 50 MCG/SPRAY BOTTLE NS SCH (10:28)
[2020-06-27] MEDS: Finasteride 5 MG TABLET PO SCH (20:33)
[2020-06-27] MEDS: Famotidine 20 MG TABLET PO SCH (21:10)
[2020-06-28] MEDS: Ipratropium/Albuterol Neb 3 ML IH SCH ×5 (03:51→20:07)
[2020-06-28 05:08] LABS: Basophils # 0.1 K/mcL (0.0-0.2); Basophils % 0.7 %; Eosinophils # 0.2 K/mcL (0.0-0.6); Eosinophils % 2.7 %; Hemoglobin 12.4 g/dL (12.9-16.9); Immature Granulocytes % 2.1 % (0-4); Lymphocytes # 1.3 K/mcL (0.6-4.6); Lymphocytes % 15.3 %; Mean Corpuscular HGB Conc 32.6 g/dL (31.6-35.5); Mean Corpuscular Volume 91.8 fL (83.0-100.0); Mean Platelet Volume 9.5 fL (9.4-12.4); Monocytes # 0.7 K/mcL (0.0-1.3); Monocytes % 8.6 %; Neutrophils # 5.8 K/mcL (1.6-8.9); Platelet Count 139 K/mcL (140-400); Red Blood Count 4.14 M/mcL (4.19-5.50); Red Cell Distribution Width 14.3 % (11.5-14.5); Segmented Neutrophils % 70.6 %; White Blood Count 8.3 K/mcL (4.3-11.1)
[2020-06-28] MEDS: *HR* Enoxaparin 40 MG/0.4 ML SYRINGE SQ SCH (05:34)
[2020-06-28 05:42] LABS: BUN/Creatinine Ratio 19 (6-26); Blood Urea Nitrogen 16 mg/dL (8-23); Calcium 8.4 mg/dL (8.6-10.3); Carbon Dioxide 24 mEq/L (23-29); Chloride 106 mEq/L (98-107); Glucose 142 mg/dL (70-105); Magnesium 2.1 mg/dL (1.6-2.6); Osmolality,Calculated 294 (280-300); Potassium 3.7 mEq/L (3.5-5.1); Sodium 140 mEq/L (136-145); eGFR For African Americans > 60 (> 60); eGFR For Non-African Americans > 60 (> 60)
[2020-06-28] MEDS: Insulin LISPRO 300 UNITS/3 ML VIAL SUBQ SCH ×3 (07:04→16:28)
[2020-06-28] MEDS: polyethylene glycoL 3350 17 GM POWD.PACK PO SCH (07:19)
[2020-06-28] MEDS: Fluticasone Propionate Nasal 50 MCG/SPRAY BOTTLE NS SCH (07:20)
[2020-06-28] MEDS: amLODIPine 5 MG TABLET PO SCH (07:20)
[2020-06-28] MEDS: Aspirin 81 MG TAB.CHEW PO SCH (07:20)
[2020-06-28] MEDS: Metoprolol XL (24 HR) Succ 25 MG TAB.ER.24H PO SCH (07:20)
[2020-06-28] MEDS: predniSONE 10 MG TABLET PO SCH (07:21)
[2020-06-28] MEDS: Gabapentin 400 MG CAPSULE PO SCH ×3 (07:21→19:59)
[2020-06-28] MEDS: Furosemide 40 MG TABLET PO SCH ×2 (07:21→16:28)
[2020-06-28] MEDS: Famotidine 20 MG TABLET PO SCH ×2 (07:21→16:27)
[2020-06-28] MEDS: Loratadine 10 MG TABLET PO SCH (07:21)
[2020-06-28] MEDS: Budesonide/Formoterol 160/4.5 1 PUFF INH IH SCH ×2 (07:57→20:07)
[2020-06-28] MEDS ORDERED: predniSONE 10 MG TABLET PO ONE (08:33)
[2020-06-28 10:31] LABS: Estimated Average Glucose 177 mg/dl; Hemoglobin A1C 7.8 %
[2020-06-28] MEDS: Finasteride 5 MG TABLET PO SCH (19:59)
[2020-06-28] MEDS: *HR* HYDROcodone/Acet 5/325 mg TABLET PO PRN (19:59)
[2020-06-28] MEDS ORDERED: Insulin DETEMIR 100 UNIT/ML X5UNITS SUBQ SCH (21:00)
[2020-06-28] MEDS: Insulin DETEMIR 100 UNIT/ML X5UNITS SUBQ SCH (21:24)
[2020-06-29] MEDS: Ipratropium/Albuterol Neb 3 ML IH SCH ×7 (00:11→23:41)
[2020-06-29 05:15] LABS: Basophils # 0.1 K/mcL (0.0-0.2); Basophils % 0.5 %; Eosinophils # 0.1 K/mcL (0.0-0.6); Eosinophils % 1.2 %; Hematocrit 37.2 % (37.5-50.1); Hemoglobin 12.2 g/dL (12.9-16.9); Immature Granulocytes % 2.2 % (0-4); Lymphocytes # 1.2 K/mcL (0.6-4.6); Lymphocytes % 13.5 %; Mean Corpuscular HGB Conc 32.8 g/dL (31.6-35.5); Mean Corpuscular Hemoglobin 30.7 pg (28.0-33.3); Mean Corpuscular Volume 93.5 fL (83.0-100.0); Mean Platelet Volume 9.8 fL (9.4-12.4); Monocytes # 0.8 K/mcL (0.0-1.3); Neutrophils # 6.7 K/mcL (1.6-8.9); Platelet Count 156 K/mcL (140-400); Red Blood Count 3.98 M/mcL (4.19-5.50); Red Cell Distribution Width 14.1 % (11.5-14.5); Segmented Neutrophils % 73.6 %; White Blood Count 9.1 K/mcL (4.3-11.1)
[2020-06-29 05:37] LABS: BUN/Creatinine Ratio 24 (6-26); Blood Urea Nitrogen 20 mg/dL (8-23); Calcium 8.2 mg/dL (8.6-10.3); Carbon Dioxide 23 mEq/L (23-29); Chloride 107 mEq/L (98-107); Glucose 159 mg/dL (70-105); Magnesium 2.4 mg/dL (1.6-2.6); Osmolality,Calculated 294 (280-300); Potassium 3.6 mEq/L (3.5-5.1); Sodium 139 mEq/L (136-145); eGFR For African Americans > 60 (> 60); eGFR For Non-African Americans > 60 (> 60)
[2020-06-29] MEDS: *HR* Enoxaparin 40 MG/0.4 ML SYRINGE SQ SCH (05:58)
[2020-06-29] MEDS: Insulin LISPRO 300 UNITS/3 ML VIAL SUBQ SCH ×3 (07:03→16:35)
[2020-06-29] MEDS: polyethylene glycoL 3350 17 GM POWD.PACK PO SCH (07:05)
[2020-06-29] MEDS: Insulin DETEMIR 100 UNIT/ML X5UNITS SUBQ SCH ×2 (07:11→21:12)
[2020-06-29] MEDS: Gabapentin 400 MG CAPSULE PO SCH ×3 (07:11→21:13)
[2020-06-29] MEDS: Loratadine 10 MG TABLET PO SCH (07:11)
[2020-06-29] MEDS: predniSONE 20 MG TABLET PO SCH (07:11)
[2020-06-29] MEDS: Aspirin 81 MG TAB.CHEW PO SCH (07:12)
[2020-06-29] MEDS: amLODIPine 5 MG TABLET PO SCH (07:12)
[2020-06-29] MEDS: *HR* HYDROcodone/Acet 5/325 mg TABLET PO PRN ×2 (07:12→21:12)
[2020-06-29] MEDS: Fluticasone Propionate Nasal 50 MCG/SPRAY BOTTLE NS SCH (07:12)
[2020-06-29] MEDS: Metoprolol XL (24 HR) Succ 25 MG TAB.ER.24H PO SCH (07:12)
[2020-06-29] MEDS: Famotidine 20 MG TABLET PO SCH ×2 (07:12→16:35)
[2020-06-29] MEDS: Furosemide 40 MG TABLET PO SCH (07:12)
[2020-06-29] MEDS: Budesonide/Formoterol 160/4.5 1 PUFF INH IH SCH ×2 (07:43→20:14)
[2020-06-29] MEDS: Finasteride 5 MG TABLET PO SCH (21:12)
[2020-06-29] MEDS: Furosemide 40 MG/4 ML VIAL IVP SCH (21:13)
[2020-06-30] MEDS: Ipratropium/Albuterol Neb 3 ML IH SCH ×6 (03:57→23:14)
[2020-06-30 04:15] LABS: Basophils # 0.1 K/mcL (0.0-0.2); Basophils % 0.7 %; Eosinophils # 0.1 K/mcL (0.0-0.6); Eosinophils % 0.8 %; Hematocrit 35.5 % (37.5-50.1); Hemoglobin 11.7 g/dL (12.9-16.9); Immature Granulocytes % 2.4 % (0-4); Lymphocytes # 1.2 K/mcL (0.6-4.6); Mean Corpuscular Volume 93.9 fL (83.0-100.0); Mean Platelet Volume 9.8 fL (9.4-12.4); Monocytes # 0.9 K/mcL (0.0-1.3); Monocytes % 9.3 %; Platelet Count 173 K/mcL (140-400); Red Blood Count 3.78 M/mcL (4.19-5.50); Red Cell Distribution Width 14.5 % (11.5-14.5); Segmented Neutrophils % 73.8 %; White Blood Count 9.6 K/mcL (4.3-11.1)
[2020-06-30 04:33] LABS: BUN/Creatinine Ratio 25 (6-26); Blood Urea Nitrogen 23 mg/dL (8-23); Calcium 8.4 mg/dL (8.6-10.3); Carbon Dioxide 25 mEq/L (23-29); Chloride 108 mEq/L (98-107); Glucose 150 mg/dL (70-105); Magnesium 2.4 mg/dL (1.6-2.6); Osmolality,Calculated 299 (280-300); Potassium 3.6 mEq/L (3.5-5.1); Sodium 141 mEq/L (136-145); eGFR For African Americans > 60 (> 60); eGFR For Non-African Americans > 60 (> 60)
[2020-06-30] MEDS: *HR* Enoxaparin 40 MG/0.4 ML SYRINGE SQ SCH (05:40)
[2020-06-30] MEDS: Budesonide/Formoterol 160/4.5 1 PUFF INH IH SCH ×2 (07:33→19:52)
[2020-06-30] MEDS: Fluticasone Propionate Nasal 50 MCG/SPRAY BOTTLE NS SCH (08:08)
[2020-06-30] MEDS: Insulin LISPRO 300 UNITS/3 ML VIAL SUBQ SCH ×3 (08:32→17:31)
[2020-06-30] MEDS: predniSONE 20 MG TABLET PO SCH (08:37)
[2020-06-30] MEDS: Loratadine 10 MG TABLET PO SCH (08:37)
[2020-06-30] MEDS: Gabapentin 400 MG CAPSULE PO SCH ×3 (08:38→19:38)
[2020-06-30] MEDS: Insulin DETEMIR 100 UNIT/ML X5UNITS SUBQ SCH ×2 (08:38→19:39)
[2020-06-30] MEDS: Furosemide 40 MG/4 ML VIAL IVP SCH ×2 (08:38→19:39)
[2020-06-30] MEDS: Metoprolol XL (24 HR) Succ 25 MG TAB.ER.24H PO SCH (08:38)
[2020-06-30] MEDS: Famotidine 20 MG TABLET PO SCH ×2 (08:38→14:39)
[2020-06-30] MEDS: amLODIPine 5 MG TABLET PO SCH (08:38)
[2020-06-30] MEDS: Aspirin 81 MG TAB.CHEW PO SCH (08:38)
[2020-06-30] MEDS: polyethylene glycoL 3350 17 GM POWD.PACK PO SCH (08:47)
[2020-06-30] MEDS: *HR* HYDROcodone/Acet 5/325 mg TABLET PO PRN (14:40)
[2020-06-30] MEDS: Finasteride 5 MG TABLET PO SCH (19:38)
[2020-07-01] MEDS: Ipratropium/Albuterol Neb 3 ML IH SCH ×2 (03:56→07:57)
[2020-07-01 04:44] LABS: Basophils # 0.1 K/mcL (0.0-0.2); Basophils % 0.7 %; Eosinophils # 0.1 K/mcL (0.0-0.6); Eosinophils % 0.5 %; Hematocrit 37.4 % (37.5-50.1); Hemoglobin 12.4 g/dL (12.9-16.9); Immature Granulocytes % 2.6 % (0-4); Lymphocytes # 1.4 K/mcL (0.6-4.6); Lymphocytes % 12.8 %; Mean Corpuscular HGB Conc 33.2 g/dL (31.6-35.5); Mean Corpuscular Volume 93.5 fL (83.0-100.0); Mean Platelet Volume 9.6 fL (9.4-12.4); Monocytes % 9.3 %; Platelet Count 187 K/mcL (140-400); Red Cell Distribution Width 14.3 % (11.5-14.5); Segmented Neutrophils % 74.1 %; White Blood Count 10.7 K/mcL (4.3-11.1)
[2020-07-01 05:03] LABS: BUN/Creatinine Ratio 28 (6-26); Blood Urea Nitrogen 21 mg/dL (8-23); Calcium 8.2 mg/dL (8.6-10.3); Carbon Dioxide 24 mEq/L (23-29); Chloride 110 mEq/L (98-107); Glucose 103 mg/dL (70-105); Magnesium 2.3 mg/dL (1.6-2.6); Osmolality,Calculated 297 (280-300); Potassium 3.5 mEq/L (3.5-5.1); Sodium 142 mEq/L (136-145); eGFR For African Americans > 60 (> 60); eGFR For Non-African Americans > 60 (> 60)
[2020-07-01] MEDS: *HR* Enoxaparin 40 MG/0.4 ML SYRINGE SQ SCH (06:08)
[2020-07-01 06:39] VITALS: BP 163/76
[2020-07-01] MEDS: Insulin LISPRO 300 UNITS/3 ML VIAL SUBQ SCH (07:18)
[2020-07-01] MEDS: Budesonide/Formoterol 160/4.5 1 PUFF INH IH SCH (07:59)
[2020-07-01] MEDS: predniSONE 20 MG TABLET PO SCH (08:29)
[2020-07-01] MEDS: Famotidine 20 MG TABLET PO SCH (08:29)
[2020-07-01] MEDS: Aspirin 81 MG TAB.CHEW PO SCH (08:29)
[2020-07-01] MEDS: amLODIPine 5 MG TABLET PO SCH (08:29)
[2020-07-01] MEDS: Gabapentin 400 MG CAPSULE PO SCH (08:29)
[2020-07-01] MEDS: Loratadine 10 MG TABLET PO SCH (08:29)
[2020-07-01] MEDS: Metoprolol XL (24 HR) Succ 25 MG TAB.ER.24H PO SCH (08:29)
[2020-07-01] MEDS: polyethylene glycoL 3350 17 GM POWD.PACK PO SCH (08:30)
[2020-07-01] MEDS: Furosemide 40 MG/4 ML VIAL IVP SCH (08:30)
[2020-07-01] MEDS: Insulin DETEMIR 100 UNIT/ML X5UNITS SUBQ SCH (08:30)
== END 2020-07-01 11:56 | disposition home or self-care (01) | DRG 181 ==
LOC: SUATTDRO → RAD 08:46 → 2ANU 08:46
PROVIDERS: ADMIT Pharmacist; ATTEND Pharmacist

== ENCOUNTER 2020-07-16 11:49 | Observation (INO) ==
[2020-07-16 12:45] LABS: Basophils # 0.1 K/mcL (0.0-0.2); Basophils % 0.7 %; Eosinophils # 0.3 K/mcL (0.0-0.6); Eosinophils % 1.8 %; Hematocrit 44.7 % (37.5-50.1); Hemoglobin 14.3 g/dL (12.9-16.9); Lymphocytes # 1.6 K/mcL (0.6-4.6); Mean Platelet Volume 10.5 fL (9.4-12.4); Monocytes # 1.3 K/mcL (0.0-1.3); Monocytes % 8.2 %; Neutrophils # 12.6 K/mcL (1.6-8.9); Platelet Count 172 K/mcL (140-400); Red Blood Count 4.61 M/mcL (4.19-5.50); Segmented Neutrophils % 77.3 %; White Blood Count 16.3 K/mcL (4.3-11.1)
[2020-07-16 12:48] LABS: VBG HCO3 26 mEq/L (21-27); VBG PCO2 47 mmHg (41-51); VBG PH 7.36 pH Units (7.32-7.42); VBG PO2 42 mmHg (25-50)
[2020-07-16 13:01] LABS: Alanine Aminotransferase 49 Units/L (7-52); Albumin 3.8 g/dL (3.5-5.7); Albumin/Globulin Ratio 1.7 (1.1-2.2); Alkaline Phosphatase 1393 Units/L (34-104); Aspartate Amino Transferase 50 Units/L (13-39); BUN/Creatinine Ratio 34 (6-26); Bilirubin,Direct 0.2 mg/dL (0.0-0.2); Bilirubin,Indirect 0.6 mg/dL (0.0-1.0); Bilirubin,Total 0.8 mg/dL (0.3-1.0); Blood Urea Nitrogen 45 mg/dL (8-23); Calcium 8.5 mg/dL (8.6-10.3); Carbon Dioxide 24 mEq/L (23-29); Chloride 107 mEq/L (98-107); Globulin 2.3 g/dL (2.4-3.5); Glucose 79 mg/dL (70-105); Lipase 8 Units/L (11-82); Osmolality,Calculated 306 (280-300); Potassium 4.6 mEq/L (3.5-5.1); Sodium 143 mEq/L (136-145); Total Protein 6.1 g/dL (6.4-8.9); eGFR For African Americans > 60 (> 60); eGFR For Non-African Americans 52 (> 60)
[2020-07-16] MEDS ORDERED: cefTRIAXone 1,000 MG in 0.9 % Sodium Chloride Mini Bag 100 ML IVPB ONE (14:16)
[2020-07-16] MEDS ORDERED: Azithromycin 500 MG in 0.9 % Sodium Chloride 250 ML IVPB ONE (14:16)
[2020-07-16 16:05] LABS: Adenovirus Not Detected (Not Detect); Bordetella Pertussis Not Detected (Not Detect); Chlamydophila pneumoniae Not Detected (Not Detect); Coronavirus 229E Not Detected (Not Detect); Coronavirus HKU1 Not Detected (Not Detect); Coronavirus NL63 Not Detected (Not Detect); Coronavirus OC43 Not Detected (Not Detect); Human Metapneumovirus Not Detected (Not Detect); Human Rhinovirus/Enterovirus Not Detected (Not Detect); Influenza A Subtype 2009 H1 Not Detected (Not Detect); Influenza B Not Detected (Not Detect); Mycoplasma pneumoniae Not Detected (Not Detect); Parainfluenza Virus 1 Not Detected (Not Detect); Parainfluenza Virus 2 Not Detected (Not Detect); Parainfluenza Virus 3 Not Detected (Not Detect); Parainfluenza Virus 4 Not Detected (Not Detect); Respiratory Syncytial Virus Not Detected (Not Detect); SARS-CoV-2 Not Detected (Not Detect)
[2020-07-16] MEDS ORDERED: Acetaminophen 325 MG TABLET PO PRN (17:04)
[2020-07-16] MEDS ORDERED: Ondansetron 4 MG/2 ML VIAL IVP PRN (17:04)
[2020-07-16] MEDS ORDERED: Naloxone 0.4 MG/ML INJ IVP PRN (17:04)
[2020-07-16] MEDS ORDERED: *HR* Dextrose 50 % in Water (Vial) 50 ML VIAL IVP PRN (17:10)
[2020-07-16] MEDS ORDERED: D5% in Water 1,000 ML IVC PRN (17:10)
[2020-07-16] MEDS ORDERED: Dextrose Gel 15 GM/37.5 ML TUBE PO PRN ×2 (17:10)
[2020-07-16] MEDS ORDERED: Temazepam 15 MG CAPSULE PO PRN (19:05)
[2020-07-16] MEDS ORDERED: Insulin LISPRO 300 UNITS/3 ML VIAL SUBQ SCH (21:00)
[2020-07-17] MEDS: Piperacillin/Tazobactam 3.375 GM in 0.9 % Sodium Chloride Mini Bag 100 ML IVPB SCH ×2 (00:20→08:00)
[2020-07-17 02:09] LABS: Basophils # 0.1 K/mcL (0.0-0.2); Basophils % 0.6 %; Eosinophils # 0.3 K/mcL (0.0-0.6); Eosinophils % 2.1 %; Hematocrit 42.5 % (37.5-50.1); Hemoglobin 13.7 g/dL (12.9-16.9); Immature Granulocytes % 1.9 % (0-4); Lymphocytes # 1.1 K/mcL (0.6-4.6); Lymphocytes % 7.6 %; Mean Corpuscular HGB Conc 32.2 g/dL (31.6-35.5); Mean Corpuscular Hemoglobin 31.1 pg (28.0-33.3); Mean Corpuscular Volume 96.4 fL (83.0-100.0); Mean Platelet Volume 10.3 fL (9.4-12.4); Monocytes # 1.2 K/mcL (0.0-1.3); Monocytes % 8.4 %; Neutrophils # 11.4 K/mcL (1.6-8.9); Platelet Count 154 K/mcL (140-400); Red Blood Count 4.41 M/mcL (4.19-5.50); Red Cell Distribution Width 14.9 % (11.5-14.5); Segmented Neutrophils % 79.4 %; White Blood Count 14.4 K/mcL (4.3-11.1)
[2020-07-17 02:28] LABS: Alanine Aminotransferase 45 Units/L (7-52); Albumin 3.5 g/dL (3.5-5.7); Albumin/Globulin Ratio 1.8 (1.1-2.2); Alkaline Phosphatase 1279 Units/L (34-104); Aspartate Amino Transferase 47 Units/L (13-39); BUN/Creatinine Ratio 40 (6-26); Bilirubin,Direct 0.3 mg/dL (0.0-0.2); Bilirubin,Indirect 0.6 mg/dL (0.0-1.0); Bilirubin,Total 0.9 mg/dL (0.3-1.0); Blood Urea Nitrogen 35 mg/dL (8-23); Calcium 8.1 mg/dL (8.6-10.3); Carbon Dioxide 23 mEq/L (23-29); Chloride 111 mEq/L (98-107); Glucose 85 mg/dL (70-105); Magnesium 2.8 mg/dL (1.6-2.6); Osmolality,Calculated 307 (280-300); Phosphorous 2.6 mg/dL (2.7-4.5); Sodium 145 mEq/L (136-145); Total Protein 5.5 g/dL (6.4-8.9); eGFR For African Americans > 60 (> 60); eGFR For Non-African Americans > 60 (> 60)
[2020-07-17] MEDS: Insulin LISPRO 300 UNITS/3 ML VIAL SUBQ SCH ×2 (09:50→12:17)
[2020-07-17] MEDS ORDERED: Morphine Sulfate 2 MG/ML SYRINGE IVP ONE (10:05)
[2020-07-17 10:51] VITALS: BP 140/83
[2020-07-17] MEDS ORDERED: Ipratropium/Albuterol Neb 3 ML IH SCH ×2 (12:00→16:00)
[2020-07-17] MEDS ORDERED: Morphine Sulfate Oral CONC 10 MG/0.5 ML ORAL.SYG SL PRN ×3 (12:00→15:20)
[2020-07-17] MEDS ORDERED: Scopolamine Patch 1.5 MG PATCH.TD72 TD SCH (12:15)
[2020-07-17] MEDS ORDERED: methylPREDNISolone 125 MG/2 ML VIAL IVP ONE (13:51)
[2020-07-17] MEDS ORDERED: Glycopyrrolate 0.2 MG/ML VIAL IVP PRN (14:01)
[2020-07-17] MEDS ORDERED: Gabapentin 400 MG CAPSULE PO SCH (15:00)
[2020-07-17] MEDS ORDERED: Budesonide/Formoterol 160/4.5 1 PUFF INH IH SCH (22:00)
[2020-07-17] MEDS ORDERED: Budesonide Neb 0.5 MG/2 ML IH SCH (22:00)
== END 2020-07-17 15:43 | disposition hospice, inpatient (51) ==
LOC: 3ANU 11:49 → EMEROOARM 11:49 → SUATTDRO 16:34 → 3ANU 17:13
PROVIDERS: ADMIT Pharmacist; ATTEND Pharmacist

== ENCOUNTER 2020-07-17 13:43 | Inpatient (IN) ==
[2020-07-17] MEDS ORDERED: haloperidoL 1 MG TABLET PO PRN (16:18)
[2020-07-17] MEDS ORDERED: *HR* LORazepam Oral Conc 2 MG/ML PO PRN (16:18)
[2020-07-17] MEDS ORDERED: Acetaminophen 650 MG RECTAL SUPP RC PRN (16:38)
[2020-07-17] MEDS ORDERED: Zoledronic Acid (Zometa) 4 MG in 0.9 % Sodium Chloride 100 ML IV ONE (16:48)
[2020-07-17] MEDS: Morphine Sulfate Oral CONC 10 MG/0.5 ML ORAL.SYG PO PRN ×3 (17:17→22:59)
[2020-07-17] MEDS: Piperacillin/Tazobactam 3.375 GM in 0.9 % Sodium Chloride Mini Bag 100 ML IVPB SCH (18:15)
[2020-07-17] MEDS: Ipratropium/Albuterol Neb 3 ML IH SCH ×2 (20:14→23:37)
[2020-07-17] MEDS: Budesonide/Formoterol 160/4.5 1 PUFF INH IH SCH (20:14)
[2020-07-17] MEDS: Gabapentin 400 MG CAPSULE PO SCH (20:21)
[2020-07-17] MEDS: Sennosides/Docusate Sodium TABLET PO SCH (20:21)
[2020-07-17] MEDS ORDERED: Haloperidol Lactate 5 MG/ML VIAL IVP PRN (22:03)
[2020-07-17] MEDS: *HR* LORazepam 2 MG/ML VIAL IVP PRN (22:59)
[2020-07-18] MEDS: Piperacillin/Tazobactam 3.375 GM in 0.9 % Sodium Chloride Mini Bag 100 ML IVPB SCH ×2 (00:19→09:54)
[2020-07-18] MEDS: Morphine Sulfate Oral CONC 10 MG/0.5 ML ORAL.SYG PO PRN ×7 (03:26→23:44)
[2020-07-18] MEDS: Ipratropium/Albuterol Neb 3 ML IH SCH ×6 (03:46→22:57)
[2020-07-18] MEDS: *HR* LORazepam 2 MG/ML VIAL IVP PRN (06:12)
[2020-07-18 06:45] VITALS: BP 154/77
[2020-07-18] MEDS: Budesonide/Formoterol 160/4.5 1 PUFF INH IH SCH ×2 (07:54→19:32)
[2020-07-18] MEDS ORDERED: predniSONE 20 MG TABLET PO SCH (09:00)
[2020-07-18] MEDS: Insulin LISPRO 300 UNITS/3 ML VIAL SUBQ SCH ×3 (09:55→17:27)
[2020-07-18] MEDS ORDERED: Atropine 1% Opth Drops 100 DROP/5 ML BOTTLE SL PRN (11:02)
[2020-07-18] MEDS: Gabapentin 400 MG CAPSULE PO SCH ×2 (11:10→21:24)
[2020-07-18] MEDS: Sennosides/Docusate Sodium TABLET PO SCH (11:11)
[2020-07-18] MEDS ORDERED: *HR* FentaNYL PATCH 50 MCG PATCH TD SCH (11:15)
[2020-07-18] MEDS ORDERED: Haloperidol Oral Conc 10 MG/5 ML UDC PO PRN (16:46)
[2020-07-18] MEDS ORDERED: Bisacodyl 10 MG RECTAL SUPPOSITORY RC PRN (16:48)
[2020-07-18] MEDS ORDERED: Dextrose Gel 15 GM/37.5 ML TUBE PO PRN ×2 (17:19)
[2020-07-18] MEDS ORDERED: *HR* Dextrose 50 % in Water (Vial) 50 ML VIAL IVP PRN (17:19)
[2020-07-18] MEDS ORDERED: D5% in Water 1,000 ML IVC PRN (17:19)
[2020-07-18] MEDS: Atropine 1% Opth Drops 100 DROP/5 ML BOTTLE SL PRN ×3 (18:02→23:45)
[2020-07-18] MEDS: *HR* LORazepam Oral Conc 2 MG/ML SL PRN ×2 (18:33→21:49)
[2020-07-19] MEDS: Ipratropium/Albuterol Neb 3 ML IH SCH ×2 (03:48→07:42)
[2020-07-19] MEDS: Morphine Sulfate Oral CONC 10 MG/0.5 ML ORAL.SYG PO PRN (03:57)
[2020-07-19] MEDS: Atropine 1% Opth Drops 100 DROP/5 ML BOTTLE SL PRN (04:02)
[2020-07-19] MEDS: Budesonide/Formoterol 160/4.5 1 PUFF INH IH SCH (07:43)
[2020-07-19] MEDS: Insulin LISPRO 300 UNITS/3 ML VIAL SUBQ SCH (08:54)
[2020-07-20] MEDS ORDERED: Scopolamine Patch 1.5 MG PATCH.TD72 TD SCH (16:30)
== END 2020-07-19 10:29 | disposition expired | DRG 951 ==
LOC: 2ANU 16:23
PROVIDERS: ADMIT Internal Medicine Hospice and Palliative Medicine; ATTEND Internal Medicine Hospice and Palliative Medicine